=== PATIENT | male | born 1935 | race Caucasian/White ===

== ENCOUNTER 2019-06-11 13:08 | Outpatient (CLI) | payer MEDICARE, OTHER, SELFPAY | END 2019-06-11 13:09 | disposition home or self-care (01) | LOC: LAB 13:16 | PROVIDERS: Family Provider Internal Medicine; PCP Internal Medicine; Visit Provider Internal Medicine | DX: I26.99 Other pulmonary embolism without acute cor pulmonale (principal) | CPT/HCPCS: 36415; 85610 ==

== ENCOUNTER 2019-06-15 09:09 | Inpatient (IN) | payer MEDICARE, OTHER, SELFPAY ==
[2019-06-15] VITALS (14 sets, daily range): BP systolic 94–155; BP diastolic 46–89; PULSE 67–118; RESP 12–21; TEMP 36.3–37.1; O2SAT 93–100; BMI 35.6
--- NOTE | 2019-06-15 09:09 | ED_ITS ---
Entered by Uzair Wallis, acting as scribe for David Goff DO HPI - Extremity Problem General: Chief complaint: Extremity Injury, Lower Stated complaint: Left hip pain/fall 2 months ago Time Seen by Provider: 06/15/19 09:09 History of Present Illness: HPI Narrative: 83 yo male presents with lower extremity pain x2 months. MD Complaint: extremity pain Onset (ago): month(s) (2) Pain Consistency: constant Associated symptoms: Deny chest pain, fever(s) or rash Review of Systems Const: Denies: fever, chills, body aches, fatigue, malaise or night sweats Eyes: Denies: change in vision or blurry vision ENMT: Denies: throat pain, oral sores/lesions, dental pain, nasal discharge or nasal congestion Card: Denies: chest pain, palpitations, irregular heart rhythm, edema, syncope, shortness of breath on exertion, shortness of breath when lying down or leg pain with exertion Resp: Denies: shortness of breath, productive cough, non-productive cough or wheezing GI: Denies: abdominal pain, nausea, vomiting, vomiting blood, coffee grounds in vomit, difficulty swallowing, heartburn/indigestion, diarrhea, constipation, cramping, blood in stool or black tarry stool : Denies: flank pain, difficulty urinating, painful urination, urinary frequency, urinary urgency, urinary incontinence or blood in urine Musc: Reports: extremity pain; Denies: neck pain, back pain, extremity swelling, joint pain or joint swelling Skin/Breast: Denies: rash, itching or redness Neuro: Denies: headache, numbness in extremities, weakness in extremities, changes in sensation, lack of coordination, difficulty walking, frequent falls, dizziness, vertigo or confusion Psych: Denies: anxiety, depression, loss of interest, visual hallucinations, auditory hallucinations, suicidal ideation or homicidal ideation Endo: Denies: excessive urination, excessive thirst, tired all the time or cold intolerance Brody/Lymph: Denies: easy bruising, easy bleeding, petechiae, enlarged lymph nodes or tender lymph nodes PFSH ED PFSH: Statuses (acute, chronic, etc) shown below reflect problem list status as previously entered and may not be historically accurate Social History Smoking and tobacco status: former smoker Course Vital Signs: Vital signs: Vital Signs Temperature 97.3 F L 06/15/19 08:58 Pulse Rate 94 06/15/19 08:58 Respiratory Rate 17 06/15/19 08:58 Blood Pressure 112/84 06/15/19 08:58 Pulse Oximetry 98 06/15/19 08:58 Discharge Plan Discharge Condition: Good Prescriptions: No Action fentanyl 50 mcg/hr patch 72 hour 1 patch TRANSDERMA Q72H 30 Days Qty: 10 RF: 0 hydrocodone-acetaminophen 10-325 mg tablet 1 - 2 tab PO Q6H PRN (Reason: pain) 30 Days Qty: 90 RF: 0 ferrous gluconate 324 mg (37.5 mg iron) tablet 324 mg PO QDAY Qty: 30 RF: 6 Coding Level of Care Code ED Pack Room Operator for Mary Jane Martino
--- NOTE | 2019-06-15 09:17 | ED_ITS ---
Documented by User: MARK Whittington 06/18/19 16:58 HPI - Extremity Problem General: Chief complaint: Extremity Injury, Lower Stated complaint: Left hip pain/fall 2 months ago Time Seen by Provider: 06/15/19 09:09 History of Present Illness: HPI Narrative: Patient is an 83-year-old male who presents to ED today along with his for complaints of pain around his left hip area and into his left lower extremity; patient states he has had trouble ambulating over the past few months stating that his leg often kumar causing him to fall; he states he has had 2 falls over the past 2 months; he has been evaluated following the falls; he has followed up with his primary care physician Dr. Jimenez; he does not complain of numbness, tingling, loss of sensation to his left lower extremity; he has not noticed any swelling or colo r/temperature changes MD Complaint: extremity pain Onset (ago): month(s) Pain Consistency: constant Location: left Relieving factors: nothing Exacerbating factors: range of motion, weight bearing and walking Associated symptoms: Deny chest pain or fever(s) Review of Systems Const: Denies: fever, chills, body aches, fatigue or malaise Eyes: Denies: change in vision or blurry vision Card: Denies: chest pain, palpitations, irregular heart rhythm, edema, lightheadedness, syncope or pre-syncope Resp: Denies: shortness of breath or chest congestion GI: Denies: abdominal pain, nausea or vomiting : Denies: flank pain, difficulty urinating, painful urination, urinary frequency or urinary urgency Musc: Reports: neck pain (chronic), back pain (chronic), extremity pain (L LE) and joint pain; Denies: extremity swelling, joint swelling, redness, joint warmth or joint stiffness Skin/Breast: Reports: other (bruising to L thigh/buttock) Neuro: Reports: difficulty walking and frequent falls; Denies: numbness in extremities, weakness in extremities or changes in sensation PFSH ED PFSH: Statuses (acute, chronic, etc) shown below reflect problem list status as previously entered and may not be historically accurate Medical History (Updated 06/15/19 @ 19:48 by Scout Dubon MD) Arthritis (Acute) Depression (Acute) DVT (deep venous thrombosis) (Acute) Fluid retention in legs (Acute) Hypertension (Acute) Hypogonadism (Acute) Quadriceps tendon rupture (Acute) Urinary tract infection (Acute) Warfarin-induced coagulopathy (Acute) Surgical History (Updated 06/15/19 @ 19:48 by Scout Dubon MD) History of arthroplasty of right knee (Acute) Family History (Updated 06/15/19 @ 19:49 by Scout Dubon MD) Father Cancer Lung cancer Social History (Updated 06/15/19 @ 19:50 by Scout Dubon MD) Smoking and tobacco status: former smoker Alcohol intake: current Alcohol intake frequency: few times a month Substance/Drug Use: never Physical Exam Const: COMMON NORMALS: no apparent distress, oriented x3, no limitations and alert NUTRITIONAL APPEARANCE: obese ORIENTATION/CONSCIOUSNESS: Yes oriented to person, Yes oriented to place and Yes oriented to time HENMT: COMMON NORMALS: normocephalic and head/scalp atraumatic HEAD & SCALP: normocephalic and atraumatic Eye: COMMON NORMALS: PERRL and EOMs intact bilaterally PUPIL: Yes PERRL Resp: COMMON NORMALS: normal respiratory effort and clear to auscultation bilaterally AUSCULTATION: clear to auscultation bilaterally Cardio: COMMON NORMALS: regular rate and regular rhythm RATE: regular rate RHYTHM: regular rhythm GI: COMMON NORMALS: soft to palpation and non-tender PALPATION: Yes soft RECTAL EXAM: Yes visual inspection normal and No heme positive stool OTHER: has two small areas of ecchymosis on his abdomen; 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; does not complain of pain Back/Pelvis: OTHER: chronic neck and back pain-at baseline per pt Extremity: OTHER: pt complains of pain about his L hip; states there is a hard lump on his L buttock (this is a hematoma/ecchymosis); he cannot raise and hold his L leg up off the table stating this is painful; pt does have some very minor swelling to L LE when compared to R; DP/PT pulses are intact; no redness/warmth; has some venous stasis changes to R LE; reports R knee being bad from previous tendon repair Neuro: STEVE COMA SCALE: document GCS findings Steve coma scale eye opening: Spontaneous Steve coma scale verbal response: Orientated [place] coma scale motor response: Obey commands Steve coma scale total score: 15 COMMON NORMALS: oriented x3, CN's II-XII intact bilaterally, moves all extremities, no focal motor deficits and no sensory deficits noted SENSORIUM/ORIENTATION: Yes alert, Yes oriented to person, Yes oriented to place and Yes oriented to time SPEECH: speech normal Skin: GENERAL SKIN EXAM: ecchymosis (large area of ecchymosis/hematoma to L lateral thigh/buttock) Course ED course: After going in and speaking to patient about his ultrasound results and x-ray results patient now tells me that his main complaint is that over the past 3 days he has felt dizzy and weak; states he has been ambulatory with his walker but states over the past 3 days he has barely been able to do this and has had to use a bedside commode because of the weakness; he states dizziness is intermittent and does not seem to be positionally related; he denies chest pain, shortness of breath, difficulty breathing; he denies headache, visual changes, numbness/tingling/changes in sensation of his extremities; has not noticed any altered mental, slurred speech, or facial drooping. Vital Signs: Vital signs: Vital Signs Temperature 98.1 F 06/18/19 15:34 Pulse Rate 78 06/18/19 15:34 Respiratory Rate 18 06/18/19 15:34 Blood Pressure 118/70 06/18/19 15:34 Pulse Oximetry 95 06/18/19 15:34 MDM - Extremity (Nontraumatic) Lab Data: Labs: Lab Results 06/15/19 06/15/19 06/15/19 Range/Units 11:05 11:23 11:23 WBC 11.4 H (4.0-10.0) 10^3/ uL RBC 2.15 L (4.1-5.3) 10^6/u L Hgb 6.5 L* (11.7-16.6) g/dL Hct 21.5 L (42.0-52.0) % MCV 100.0 H (80-94) fL MCH 30.2 (28.0-34.0) pg MCHC 30.2 (30.0-36.0) g/dL RDW 14.4 (12.1-15.1) % Plt Count 329 (130-400) 10^3/c mm MPV 10.1 (7.4-10.4) fL Neut % (Auto) 84.4 % Lymph % (Auto) 7.0 % Cory[place] % (Auto) 7.8 % Eos % (Auto) 0.1 % Baso % (Auto) 0.3 % Neut # (Auto) 9.6 H (1.8-7.7) 10^3/u L Lymph # (Auto) 0.8 (0.8-4.8) 10^3/u L [place] # (Auto) 0.9 (0.2-0.9) 10^3/u L Eos # (Auto) 0.0 (0.0-0.8) 10^3/u L Baso # (Auto) 0.0 (0.0-0.1) 10^3/u L Nucleated RBC % (a uto) 0 % Nucleated RBCs # 0.0 /100WBC PT 41.50 H (10.5-13.3) SECO NDS INR 4.11 H (0.8-1.2) APTT 81.7 H (23.9-36.7) SECO NDS Sodium (136-145) mmol/L Potassium (3.5-5.1) mmol/L Chloride (98-107) mmol/L Carbon Dioxide (22-29) mmol/L Anion Gap (5-19) BUN (8-23) mg/dL Creatinine (0.7-1.2) mg/dL Glucose (74-106) mg/dL POC Glucose (70-110) mg/dL Calcium (8.5-10.5) mg/dL Magnesium (1.7-2.3) mg/dL Iron (59-158) ug/dL TIBC mcg/dl % Saturation (20-50) % Unsat Iron Binding (112-347) ug/dL Ferritin (30-400) ng/mL Total Bilirubin (0.15-1.2) mg/dL AST (0-40) U/L ALT (0-41) U/L Alkaline Phosphata se (40-130) IU/L Troponin I 6 Hour (0-15) ng/L Troponin I Hi Sens Del (0-12) ng/L Troponin T Baselin e (0-15) ng/mL Troponin T 120 Min nightmute (0-15) ng/mL Delta Troponin T (0-10) ABS# Total Protein (6.6-8.7) g/dL Albumin (3.5-5.2) g/dL Globulin (1.3-4.6) g/dL Vitamin B12 (232-1245) pg/mL Folate (4.5-32.2) ng/mL Urine Color Yellow (Yellow) Urine Appearance Cloudy (CLEAR) Urine pH 5.0 (5-7) Ur Specific Gravit y 1.010 (1.005-1.030) Urine Protein 1+ H (Negative) Urine Glucose (UA) Norm (Normal) Urine Ketones Negative (Negative) Urine Occult Blood 3+ H (Negative) Urine Nitrate Negative (Negative) Urine Bilirubin 1+ H (NEGATIVE) Urine Urobilinogen 4 H (Negative) mg/dL Ur Leukocyte Jo ase 2+ H (Negative) Urine RBC 15-25 H (0-2) /hpf Urine WBC 80-100 H (0-5) /hpf Ur Squamous Epith Cells 5-10 H (0-5) Urine Bacteria 2+ H (NONE) Urine Mucus Trace Blood Type Antibody Screen Crossmatch 06/15/19 06/15/19 06/15/19 Range/Units 11:23 11:23 12:27 WBC (4.0-10.0) 10^3/ uL RBC (4.1-5.3) 10^6/u L Hgb (11.7-16.6) g/dL Hct (42.0-52.0) % MCV (80-94) fL MCH (28.0-34.0) pg MCHC (30.0-36.0) g/dL RDW (12.1-15.1) % Plt Count (130-400) 10^3/c mm MPV (7.4-10.4) fL Neut % (Auto) % Lymph % (Auto) % Coryell % (Auto) % Eos % (Auto) % Baso % (Auto) % Neut # (Auto) (1.8-7.7) 10^3/u L Lymph # (Auto) (0.8-4.8) 10^3/u L [place] # (Auto) (0.2-0.9) 10^3/u L Eos # (Auto) (0.0-0.8) 10^3/u L Baso # (Auto) (0.0-0.1) 10^3/u L Nucleated RBC % (a uto) % Nucleated RBCs # /100WBC PT (10.5-13.3) SECO NDS INR (0.8-1.2) APTT (23.9-36.7) SECO NDS Sodium 133 L (136-145) mmol/L Potassium 4.1 (3.5-5.1) mmol/L Chloride 99 (98-107) mmol/L Carbon Dioxide 24 (22-29) mmol/L Anion Gap 14.1 (5-19) BUN 32 H (8-23) mg/dL Creatinine 1.0 (0.7-1.2) mg/dL Glucose 138 H (74-106) mg/dL POC Glucose (70-110) mg/dL Calcium 8.8 (8.5-10.5) mg/dL Magnesium 1.9 (1.7-2.3) mg/dL Iron (59-158) ug/dL TIBC mcg/dl % Saturation (20-50) % Unsat Iron Binding (112-347) ug/dL Ferritin (30-400) ng/mL Total Bilirubin 1.2 (0.15-1.2) mg/dL AST 46 H (0-40) U/L ALT 24 (0-41) U/L Alkaline Phosphata se 57 (40-130) IU/L Troponin I 6 Hour (0-15) ng/L Troponin I Hi Sens Del (0-12) ng/L Troponin T Baselin e 50 H (0-15) ng/mL Troponin T 120 Min nightmute (0-15) ng/mL Delta Troponin T (0-10) ABS# Total Protein 6.0 L (6.6-8.7) g/dL Albumin 3.0 L (3.5-5.2) g/dL Globulin 3.0 (1.3-4.6) g/dL Vitamin B12 (232-1245) pg/mL Folate (4.5-32.2) ng/mL Urine Color (Yellow) Urine Appearance (CLEAR) Urine pH (5-7) Ur Specific Gravit y (1.005-1.030) Urine Protein (Negative) Urine Glucose (UA) (Normal) Urine Ketones (Negative) Urine Occult Blood (Negative) Urine Nitrate (Negative) Urine Bilirubin (NEGATIVE) Urine Urobilinogen (Negative) mg/dL Ur Leukocyte Jo ase (Negative) Urine RBC (0-2) /hpf Urine WBC (0-5) /hpf Ur Squamous Epith Cells (0-5) Urine Bacteria (NONE) Urine Mucus Blood Type B Positive Antibody Screen Negative Crossmatch See Detail 06/15/19 06/15/19 06/15/19 Range/Units 13:54 13:54 13:56 WBC (4.0-10.0) 10^3/ uL RBC (4.1-5.3) 10^6/u L Hgb (11.7-16.6) g/dL Hct (42.0-52.0) % MCV (80-94) fL MCH (28.0-34.0) pg MCHC (30.0-36.0) g/dL RDW (12.1-15.1) % Plt Count (130-400) 10^3/c mm MPV (7.4-10.4) fL Neut % (Auto) % Lymph % (Auto) % [place] % (Auto) % Eos % (Auto) % Baso % (Auto) % Neut # (Auto) (1.8-7.7) 10^3/u L Lymph # (Auto) (0.8-4.8) 10^3/u L [place] # (Auto) (0.2-0.9) 10^3/u L Eos # (Auto) (0.0-0.8) 10^3/u L Baso # (Auto) (0.0-0.1) 10^3/u L Nucleated RBC % (a uto) % Nucleated RBCs # /100WBC PT (10.5-13.3) SECO NDS INR (0.8-1.2) APTT (23.9-36.7) SECO NDS Sodium (136-145) mmol/L Potassium (3.5-5.1) mmol/L Chloride (98-107) mmol/L Carbon Dioxide (22-29) mmol/L Anion Gap (5-19) BUN (8-23) mg/dL Creatinine (0.7-1.2) mg/dL Glucose (74-106) mg/dL POC Glucose (70-110) mg/dL Calcium (8.5-10.5) mg/dL Magnesium (1.7-2.3) mg/dL Iron 21 L 20 L (59-158) ug/dL TIBC 145 mcg/dl % Saturation 14.4 L (20-50) % Unsat Iron Binding 124 (112-347) ug/dL Ferritin 1140 H (30-400) ng/mL Total Bilirubin (0.15-1.2) mg/dL AST (0-40) U/L ALT (0-41) U/L Alkaline Phosphata se (40-130) IU/L Troponin I 6 Hour (0-15) ng/L Troponin I Hi Sens Del (0-12) ng/L Troponin T Baselin e (0-15) ng/mL Troponin T 120 Min nightmute 48.02 H (0-15) ng/mL Delta Troponin T -1.98 L (0-10) ABS# Total Protein (6.6-8.7) g/dL Albumin (3.5-5.2) g/dL Globulin (1.3-4.6) g/dL Vitamin B12 227 L (232-1245) pg/mL Folate (4.5-32.2) ng/mL Urine Color (Yellow) Urine Appearance (CLEAR) Urine pH (5-7) Ur Specific Gravit y (1.005-1.030) Urine Protein (Negative) Urine Glucose (UA) (Normal) Urine Ketones (Negative) Urine Occult Blood (Negative) Urine Nitrate (Negative) Urine Bilirubin (NEGATIVE) Urine Urobilinogen (Negative) mg/dL Ur Leukocyte Jo ase (Negative) Urine RBC (0-2) /hpf Urine WBC (0-5) /hpf Ur Squamous Epith Cells (0-5) Urine Bacteria (NONE) Urine Mucus Blood Type Antibody Screen Crossmatch 06/15/19 06/15/19 06/16/19 Range/Units 16:27 17:52 06:05 WBC (4.0-10.0) 10^3/ uL RBC (4.1-5.3) 10^6/u L Hgb (11.7-16.6) g/dL Hct (42.0-52.0) % MCV (80-94) fL MCH (28.0-34.0) pg MCHC (30.0-36.0) g/dL RDW (12.1-15.1) % Plt Count (130-400) 10^3/c mm MPV (7.4-10.4) fL Neut % (Auto) % Lymph % (Auto) % [place] % (Auto) % Eos % (Auto) % Baso % (Auto) % Neut # (Auto) (1.8-7.7) 10^3/u L Lymph # (Auto) (0.8-4.8) 10^3/u L [place] # (Auto) (0.2-0.9) 10^3/u L Eos # (Auto) (0.0-0.8) 10^3/u L Baso # (Auto) (0.0-0.1) 10^3/u L Nucleated RBC % (a uto) % Nucleated RBCs # /100WBC PT (10.5-13.3) SECO NDS INR (0.8-1.2) APTT (23.9-36.7) SECO NDS Sodium (136-145) mmol/L Potassium (3.5-5.1) mmol/L Chloride (98-107) mmol/L Carbon Dioxide (22-29) mmol/L Anion Gap (5-19) BUN (8-23) mg/dL Creatinine (0.7-1.2) mg/dL Glucose (74-106) mg/dL POC Glucose 137 (70-110) mg/dL Calcium (8.5-10.5) mg/dL Magnesium (1.7-2.3) mg/dL Iron (59-158) ug/dL TIBC mcg/dl % Saturation (20-50) % Unsat Iron Binding (112-347) ug/dL Ferritin (30-400) ng/mL Total Bilirubin (0.15-1.2) mg/dL AST (0-40) U/L ALT (0-41) U/L Alkaline Phosphata se (40-130) IU/L Troponin I 6 Hour 49.28 H (0-15) ng/L Troponin I Hi Sens Del -0.72 L (0-12) ng/L Troponin T Baselin e (0-15) ng/mL Troponin T 120 Min nightm[place] (0-15) ng/mL Delta Troponin T (0-10) ABS# Total Protein (6.6-8.7) g/dL Albumin (3.5-5.2) g/dL Globulin (1.3-4.6) g/dL Vitamin B12 (232-1245) pg/mL Folate 9.1 (4.5-32.2) ng/mL Urine Color (Yellow) Urine Appearance (CLEAR) Urine pH (5-7) Ur Specific Gravit y (1.005-1.030) Urine Protein (Negative) Urine Glucose (UA) (Normal) Urine Ketones (Negative) Urine Occult Blood (Negative) Urine Nitrate (Negative) Urine Bilirubin (NEGATIVE) Urine Urobilinogen (Negative) mg/dL Ur Leukocyte Jo ase (Negative) Urine RBC (0-2) /hpf Urine WBC (0-5) /hpf Ur Squamous Epith Cells (0-5) Urine Bacteria (NONE) Urine Mucus Blood Type Antibody Screen Crossmatch 06/16/19 06/16/19 Range/Units 08:11 08:11 WBC 10.5 H (4.0-10.0) 10^3/ uL RBC 2.37 L (4.1-5.3) 10^6/u L Hgb 7.4 L (11.7-16.6) g/dL Hct 23.7 L (42.0-52.0) % MCV 100.0 H (80-94) fL MCH 31.2 (28.0-34.0) pg MCHC 31.2 (30.0-36.0) g/dL RDW 16.0 H (12.1-15.1) % Plt Count 411 H (130-400) 10^3/c mm MPV 10.2 (7.4-10.4) fL Neut % (Auto) 80.8 % Lymph % (Auto) 7.2 % [place] % (Auto) 10.3 % Eos % (Auto) 0.9 % Baso % (Auto) 0.4 % Neut # (Auto) 8.5 H (1.8-7.7) 10^3/u L Lymph # (Auto) 0.8 (0.8-4.8) 10^3/u L [place] # (Auto) 1.1 H (0.2-0.9) 10^3/u L Eos # (Auto) 0.1 (0.0-0.8) 10^3/u L Baso # (Auto) 0.0 (0.0-0.1) 10^3/u L Nucleated RBC % (a uto) 0 % Nucleated RBCs # 0.0 /100WBC PT (10.5-13.3) SECO NDS INR (0.8-1.2) APTT (23.9-36.7) SECO NDS Sodium 135 L (136-145) mmol/L Potassium 4.2 (3.5-5.1) mmol/L Chloride 100 (98-107) mmol/L Carbon Dioxide 26 (22-29) mmol/L Anion Gap 13.2 (5-19) BUN 26 H (8-23) mg/dL Creatinine 0.8 (0.7-1.2) mg/dL Glucose 132 H (74-106) mg/dL POC Glucose (70-110) mg/dL Calcium 8.6 (8.5-10.5) mg/dL Magnesium (1.7-2.3) mg/dL Iron (59-158) ug/dL TIBC mcg/dl % Saturation (20-50) % Unsat Iron Binding (112-347) ug/dL Ferritin (30-400) ng/mL Total Bilirubin 1.1 (0.15-1.2) mg/dL AST 51 H (0-40) U/L ALT 27 (0-41) U/L Alkaline Phosphata se 57 (40-130) IU/L Troponin I 6 Hour (0-15) ng/L Troponin I Hi Sens Del (0-12) ng/L Troponin T Baselin e (0-15) ng/mL Troponin T 120 Min nightm[place] (0-15) ng/mL Delta Troponin T (0-10) ABS# Total Protein 6.2 L (6.6-8.7) g/dL Albumin 3.1 L (3.5-5.2) g/dL Globulin 3.1 (1.3-4.6) g/dL Vitamin B12 (232-1245) pg/mL Folate (4.5-32.2) ng/mL Urine Color (Yellow) Urine Appearance (CLEAR) Urine pH (5-7) Ur Specific Gravit y (1.005-1.030) Urine Protein (Negative) Urine Glucose (UA) (Normal) Urine Ketones (Negative) Urine Occult Blood (Negative) Urine Nitrate (Negative) Urine Bilirubin (NEGATIVE) Urine Urobilinogen (Negative) mg/dL Ur Leukocyte Jo ase (Negative) Urine RBC (0-2) /hpf Urine WBC (0-5) /hpf Ur Squamous Epith Cells (0-5) Urine Bacteria (NONE) Urine Mucus Blood Type Antibody Screen Crossmatch Imaging Data^: L hip XR: Radiologist's impression: [address] [address] XRay Report Signed Patient: Wing Vega Unit #: [id number] : 1935 Acct#:[id number] Age/Sex: 83 / M ADM Date: 06/15/19 Loc: ER Room/Bed: Attending Dr: Ordering Provider/Ordering MD: Kenzie Govea Date of Service: 06/15/19 Procedure(s): XR hip LT 2-3V wo/w pel* [id number] Accession Number(s): [id number] Report Number: [id number] PROCEDURE INFORMATION: Exam: XR Left Hip with Pelvis when Performed Exam date and time: 06/15/2019 9:40 AM Age: 83 years old Clinical indication: Patient HX: Left hip pain, can't bear weight, no known injury; Additional info: Fall/pain TECHNIQUE: Imaging protocol: XR Left hip with pelvis when performed. Views: 2 or 3 views. COMPARISON: CT Abdomen/Pelvis Renal [id number] 07/22/2015 8:18 AM FINDINGS: Bones/joints: osseous structures of the pelvis without an acute process. rami are intact. Sacroiliac joints without separation/diastases/fracture. Iliac bones unremarkable/noncontributory Moderate degenerative changes within the hips Degenerative changes within the visualized portions of the caudal aspect of the lumbar spine. Moderate. Soft tissues: Unremarkable. XR/XR hip LT 2-3V wo/w pel* [id number] IMPRESSION: No acute process. Degenerative changes within the hips and lumbar spine. Dictated By: Cristobal Malagon MD Signed By: Cristobal Malagon MD Signed Date/Time: 06/15/19 1108 DD/ 1106 L buttock soft tissue: Radiologist's impression: [address] [place] [address] Ultrasound Report Signed Patient: Wing Vega Unit #: [id number] : 1935 Age/Sex: 83 / M ADM Date: 06/15/19 Loc: ER Room/Bed: Attending Dr: Ordering Provider/Ordering MD: Kenzie Govea Date of Service: 06/15/19 Procedure(s): US soft tissue/extremity [id number] Accession Number(s): [id number] Report Number: [id number] WS: [id number] INDICATION: Left buttock bruising TECHNIQUE: Ultrasound soft tissue FINDINGS: Ultrasound soft tissue left buttocks area of concern. Superficial edema. Hypoechoic mixed echogenicity collection measuring 5.5 x 2.2 x 2.8 cm. This is 2.4 cm from the skin. Findings are nonspecific but suspected resolving hematoma due to recent trauma and bruising. IMPRESSION: Suspected resolving hematoma in the area of concern measuring 5.5 x 2.8 cm. This can be followed up with ultrasound 2-3 weeks Dictated By: Hua Zaldivar MD Signed By: Hua Zaldivar MD Signed Date/Time: 06/15/19 1040 DD/ 1035 L LE venous US: Radiologist's impression: Examination was technically limited due to body habitus. No evidence of DVT seen in any vessel where visualized at this time. Calf edema noted. Mid calf veins not well seen. CXR: Radiologist's impression: [address] [place] [address] XRay Report Signed Patient: Wing Vega Unit #: [id number] : 1935 Age/Sex: 83 / M ADM Date: 06/15/19 Loc: ER Room/Bed: Attending Dr: Ordering Provider/Ordering MD: Kenzie Govea Date of Service: 06/15/19 Procedure(s): XR chest 1V portable [id number] Accession Number(s): [id number] Report Number: [id number] PROCEDURE INFORMATION: Exam: XR Chest, 1 View Exam date and time: 06/15/2019 11:38 AM Age: 83 years old Clinical indication: Cough; Additional info: Cough/congestion TECHNIQUE: Imaging protocol: XR of the chest Views: 1 view. COMPARISON: CR Chest 1 [place] [id number] 04/22/2019 1:16 PM FINDINGS: Lungs: Lungs are well aerated without a focal area of consolidation. Pleural space: Unremarkable. No pleural effusion. No pneumothorax. Heart/Mediastinum: The cardiac silhouette appears enlarged, some of which is magnification related to the AP projection. Bones/joints: Unremarkable. XR/XR chest 1V portable [id number] IMPRESSION: Lungs are well aerated without a focal area of consolidation. Dictated By: Cristobal Malagon MD Signed By: Cristobal Malagon MD Signed Date/Time: 06/15/191156 DD/ 115 CT Head: Radiologist's impression: [place] [address] CT Scan Report Signed Patient: Wing Vega Unit #: [id number] : 1935 Age/Sex: 83 / M ADM Date: 06/15/19 Loc: ER Room/Bed: Attending Dr: Ordering Provider/Ordering MD: Kenzie Govea Date of Service: 06/15/19 Procedure(s): CT head wo con* [id number] Accession Number(s): [id number] Report Number: [id number] WS: [id number] CT HEAD TECHNIQUE: Noncontrast CT of the head obtained from the skullbase to the vertex. CLINICAL INFORMATION: trauma COMPARISON: None. DLP: 796.[address] scans at [facility] use at least one of these dose optimization techniques: automated exposure control; mA and/or kV adjustment per patient size (includes targeted exams where dose is matched to clinical indication); or iterative reconstruction. FINDINGS: No evidence of intracranial hemorrhage or mass effect. Ventricular system and basal cisterns are patent. Mild small vessel changes with mild4 parenchymal volume loss. No extra- axial fluid collections. No evidence of mass or mass effect. Normal romero-white differentiation. Paranasal sinuses and mastoid air cells are well aerated. .Normal visualized soft tissues. CT/CT head wo con* [id number] IMPRESSION: 1. No evidence of intracranial hemorrhage or mass effect. 2. Mild small vessel changes. Mild parenchymal loss. 3. No acute intracranial findings. Dictated By: Hua Zaldivar MD Signed By: Hua Zaldivar MD Signed Date/Time: 06/15/19 1248 DD/ 1245 Discharge Plan Discharge Patient Disposition: Admitted As Inpatient Admit Provider: Scout Dubon Clinical Impression: Supratherapeutic INR, Acute anemia Condition: Stable Referrals: Blas Jimenez MD [Primary Care Provider] - Discharge Date/Time: 06/15/19 17:10 Coding Level of Care Code ED Jointer Machine for Chg Fwd Exam Problem Focused Documented by User: Sofia Lara MD 06/15/19 15:02 HPI - Extremity Problem General: Chief complaint: Extremity Injury, Lower Stated complaint: Left hip pain/fall 2 months ago Time Seen by Provider: 06/15/19 09:09 [facility] ED PFSH: Statuses (acute, chronic, etc) shown below reflect problem list status as previously entered and may not be historically accurate Medical History (Updated 06/15/19 @ 19:48 by Scout Dubon MD) Arthritis (Acute) Depression (Acute) DVT (deep venous thrombosis) (Acute) Fluid retention in legs (Acute) Hypertension (Acute) Hypogonadism (Acute) Quadriceps tendon rupture (Acute) Urinary tract infection (Acute) Warfarin-induced coagulopathy (Acute) Surgical History (Updated 06/15/19 @ 19:48 by Scout Dubon MD) History of arthroplasty of right knee (Acute) Family History (Updated 06/15/19 @ 19:49 by Scout Dubon MD) Father Cancer Lung cancer Social History (Updated 06/15/19 @ 19:50 by Scout Dubon MD) Smoking and tobacco status: former smoker Alcohol intake: current Alcohol intake frequency: few times a month Substance/Drug Use: never Course Vital Signs: Vital signs: Vital Signs Temperature 98.1 F 06/18/19 15:34 Pulse Rate 78 06/18/19 15:34 Respiratory Rate 18 06/18/19 15:34 Blood Pressure 118/70 06/18/19 15:34 Pulse Oximetry 95 06/18/19 15:34 MDM - Extremity (Nontraumatic) MDM Narrative: Medical decision making narrative: Patient presents here with hematoma to his leg likely causing his anemia. His knee is likely causing his dizziness. His INR is slightly elevated. Will transfuse and monitor INR as well. I spoke to Dr. Dubon who is admitting for observation. Patient has been stable while in the ER. Lab Data: Labs: Lab Results 06/15/19 06/15/19 06/15/19 Range/Units 11:05 11:23 11:23 WBC 11.4 H (4.0-10.0) 10^3/ uL RBC 2.15 L (4.1-5.3) 10^6/u L Hgb 6.5 L* (11.7-16.6) g/dL Hct 21.5 L (42.0-52.0) % MCV 100.0 H (80-94) fL MCH 30.2 (28.0-34.0) pg MCHC 30.2 (30.0-36.0) g/dL RDW 14.4 (12.1-15.1) % Plt Count 329 (130-400) 10^3/c mm MPV 10.1 (7.4-10.4) fL Neut % (Auto) 84.4 % Lymph % (Auto) 7.0 % [place] % (Auto) 7.8 % Eos % (Auto) 0.1 % Baso % (Auto) 0.3 % Neut # (Auto) 9.6 H (1.8-7.7) 10^3/u L Lymph # (Auto) 0.8 (0.8-4.8) 10^3/u L [place] # (Auto) 0.9 (0.2-0.9) 10^3/u L Eos # (Auto) 0.0 (0.0-0.8) 10^3/u L Baso # (Auto) 0.0 (0.0-0.1) 10^3/u L Nucleated RBC % (a uto) 0 % Nucleated RBCs # 0.0 /100WBC PT 41.50 H (10.5-13.3) SECO NDS INR 4.11 H (0.8-1.2) APTT 81.7 H (23.9-36.7) SECO NDS Sodium (136-145) mmol/L Potassium (3.5-5.1) mmol/L Chloride (98-107) mmol/L Carbon Dioxide (22-29) mmol/L Anion Gap (5-19) BUN (8-23) mg/dL Creatinine (0.7-1.2) mg/dL Glucose (74-106) mg/dL POC Glucose (70-110) mg/dL Calcium (8.5-10.5) mg/dL Magnesium (1.7-2.3) mg/dL Iron (59-158) ug/dL TIBC mcg/dl % Saturation (20-50) % Unsat Iron Binding (112-347) ug/dL Ferritin (30-400) ng/mL Total Bilirubin (0.15-1.2) mg/dL AST (0-40) U/L ALT (0-41) U/L Alkaline Phosphata se (40-130) IU/L Troponin I 6 Hour (0-15) ng/L Troponin I Hi Sens Del (0-12) ng/L Troponin T Baselin e (0-15) ng/mL Troponin T 120 Min nightmute (0-15) ng/mL Delta Troponin T (0-10) ABS# Total Protein (6.6-8.7) g/dL Albumin (3.5-5.2) g/dL Globulin (1.3-4.6) g/dL Vitamin B12 (232-1245) pg/mL Folate (4.5-32.2) ng/mL Urine Color Yellow (Yellow) Urine Appearance Cloudy (CLEAR) Urine pH 5.0 (5-7) Ur Specific Gravit y 1.010 (1.005-1.030) Urine Protein 1+ H (Negative) Urine Glucose (UA) Norm (Normal) Urine Ketones Negative (Negative) Urine Occult Blood 3+ H (Negative) Urine Nitrate Negative (Negative) Urine Bilirubin 1+ H (NEGATIVE) Urine Urobilinogen 4 H (Negative) mg/dL Ur Leukocyte Jo ase 2+ H (Negative) Urine RBC 15-25 H (0-2) /hpf Urine WBC 80-100 H (0-5) /hpf Ur Squamous Epith Cells 5-10 H (0-5) Urine Bacteria 2+ H (NONE) Urine Mucus Trace Blood Type Antibody Screen Crossmatch 06/15/19 06/15/19 06/15/19 Range/Units 11:23 11:23 12:27 WBC (4.0-10.0) 10^3/ uL RBC (4.1-5.3) 10^6/u L Hgb (11.7-16.6) g/dL Hct (42.0-52.0) % MCV (80-94) fL MCH (28.0-34.0) pg MCHC (30.0-36.0) g/dL RDW (12.1-15.1) % Plt Count (130-400) 10^3/c mm MPV (7.4-10.4) fL Neut % (Auto) % Lymph % (Auto) % Coryell % (Auto) % Eos % (Auto) % Baso % (Auto) % Neut # (Auto) (1.8-7.7) 10^3/u L Lymph # (Auto) (0.8-4.8) 10^3/u L Coryell # (Auto) (0.2-0.9) 10^3/u L Eos # (Auto) (0.0-0.8) 10^3/u L Baso # (Auto) (0.0-0.1) 10^3/u L Nucleated RBC % (a uto) % Nucleated RBCs # /100WBC PT (10.5-13.3) SECO NDS INR (0.8-1.2) APTT (23.9-36.7) SECO NDS Sodium 133 L (136-145) mmol/L Potassium 4.1 (3.5-5.1) mmol/L Chloride 99 (98-107) mmol/L Carbon Dioxide 24 (22-29) mmol/L Anion Gap 14.1 (5-19) BUN 32 H (8-23) mg/dL Creatinine 1.0 (0.7-1.2) mg/dL Glucose 138 H (74-106) mg/dL POC Glucose (70-110) mg/dL Calcium 8.8 (8.5-10.5) mg/dL Magnesium 1.9 (1.7-2.3) mg/dL Iron (59-158) ug/dL TIBC mcg/dl % Saturation (20-50) % Unsat Iron Binding (112-347) ug/dL Ferritin (30-400) ng/mL Total Bilirubin 1.2 (0.15-1.2) mg/dL AST 46 H (0-40) U/L ALT 24 (0-41) U/L Alkaline Phosphata se 57 (40-130) IU/L Troponin I 6 Hour (0-15) ng/L Troponin I Hi Sens Del (0-12) ng/L Troponin T Baselin e 50 H (0-15) ng/mL Troponin T 120 Min nightmute (0-15) ng/mL Delta Troponin T (0-10) ABS# Total Protein 6.0 L (6.6-8.7) g/dL Albumin 3.0 L (3.5-5.2) g/dL Globulin 3.0 (1.3-4.6) g/dL Vitamin B12 (232-1245) pg/mL Folate (4.5-32.2) ng/mL Urine Color (Yellow) Urine Appearance (CLEAR) Urine pH (5-7) Ur Specific Gravit y (1.005-1.030) Urine Protein (Negative) Urine Glucose (UA) (Normal) Urine Ketones (Negative) Urine Occult Blood (Negative) Urine Nitrate (Negative) Urine Bilirubin (NEGATIVE) Urine Urobilinogen (Negative) mg/dL Ur Leukocyte Jo ase (Negative) Urine RBC (0-2) /hpf Urine WBC (0-5) /hpf Ur Squamous Epith Cells (0-5) Urine Bacteria (NONE) Urine Mucus Blood Type B Positive Antibody Screen Negative Crossmatch See Detail 06/15/19 06/15/19 06/15/19 Range/Units 13:54 13:54 13:56 WBC (4.0-10.0) 10^3/ uL RBC (4.1-5.3) 10^6/u L Hgb (11.7-16.6) g/dL Hct (42.0-52.0) % MCV (80-94) fL MCH (28.0-34.0) pg MCHC (30.0-36.0) g/dL RDW (12.1-15.1) % Plt Count (130-400) 10^3/c mm MPV (7.4-10.4) fL Neut % (Auto) % Lymph % (Auto) % Coryell % (Auto) % Eos % (Auto) % Baso % (Auto) % Neut # (Auto) (1.8-7.7) 10^3/u L Lymph # (Auto) (0.8-4.8) 10^3/u L Coryell # (Auto) (0.2-0.9) 10^3/u L Eos # (Auto) (0.0-0.8) 10^3/u L Baso # (Auto) (0.0-0.1) 10^3/u L Nucleated RBC % (a uto) % Nucleated RBCs # /100WBC PT (10.5-13.3) SECO NDS INR (0.8-1.2) APTT (23.9-36.7) SECO NDS Sodium (136-145) mmol/L Potassium (3.5-5.1) mmol/L Chloride (98-107) mmol/L Carbon Dioxide (22-29) mmol/L Anion Gap (5-19) BUN (8-23) mg/dL Creatinine (0.7-1.2) mg/dL Glucose (74-106) mg/dL POC Glucose (70-110) mg/dL Calcium (8.5-10.5) mg/dL Magnesium (1.7-2.3) mg/dL Iron 21 L 20 L (59-158) ug/dL TIBC 145 mcg/dl % Saturation 14.4 L (20-50) % Unsat Iron Binding 124 (112-347) ug/dL Ferritin 1140 H (30-400) ng/mL Total Bilirubin (0.15-1.2) mg/dL AST (0-40) U/L ALT (0-41) U/L Alkaline Phosphata se (40-130) IU/L Troponin I 6 Hour (0-15) ng/L Troponin I Hi Sens Del (0-12) ng/L Troponin T Baselin e (0-15) ng/mL Troponin T 120 Min nightmute 48.02 H (0-15) ng/mL Delta Troponin T -1.98 L (0-10) ABS# Total Protein (6.6-8.7) g/dL Albumin (3.5-5.2) g/dL Globulin (1.3-4.6) g/dL Vitamin B12 227 L (232-1245) pg/mL Folate (4.5-32.2) ng/mL Urine Color (Yellow) Urine Appearance (CLEAR) Urine pH (5-7) Ur Specific Gravit y (1.005-1.030) Urine Protein (Negative) Urine Glucose (UA) (Normal) Urine Ketones (Negative) Urine Occult Blood (Negative) Urine Nitrate (Negative) Urine Bilirubin (NEGATIVE) Urine Urobilinogen (Negative) mg/dL Ur Leukocyte Jo ase (Negative) Urine RBC (0-2) /hpf Urine WBC (0-5) /hpf Ur Squamous Epith Cells (0-5) Urine Bacteria (NONE) Urine Mucus Blood Type Antibody Screen Crossmatch 06/15/19 06/15/19 06/16/19 Range/Units 16:27 17:52 06:05 WBC (4.0-10.0) 10^3/ uL RBC (4.1-5.3) 10^6/u L Hgb (11.7-16.6) g/dL Hct (42.0-52.0) % MCV (80-94) fL MCH (28.0-34.0) pg MCHC (30.0-36.0) g/dL RDW (12.1-15.1) % Plt Count (130-400) 10^3/c mm MPV (7.4-10.4) fL Neut % (Auto) % Lymph % (Auto) % Coryell % (Auto) % Eos % (Auto) % Baso % (Auto) % Neut # (Auto) (1.8-7.7) 10^3/u L Lymph # (Auto) (0.8-4.8) 10^3/u L Coryell # (Auto) (0.2-0.9) 10^3/u L Eos # (Auto) (0.0-0.8) 10^3/u L Baso # (Auto) (0.0-0.1) 10^3/u L Nucleated RBC % (a uto) % Nucleated RBCs # /100WBC PT (10.5-13.3) SECO NDS INR (0.8-1.2) APTT (23.9-36.7) SECO NDS Sodium (136-145) mmol/L Potassium (3.5-5.1) mmol/L Chloride (98-107) mmol/L Carbon Dioxide (22-29) mmol/L Anion Gap (5-19) BUN (8-23) mg/dL Creatinine (0.7-1.2) mg/dL Glucose (74-106) mg/dL POC Glucose 137 (70-110) mg/dL Calcium (8.5-10.5) mg/dL Magnesium (1.7-2.3) mg/dL Iron (59-158) ug/dL TIBC mcg/dl % Saturation (20-50) % Unsat Iron Binding (112-347) ug/dL Ferritin (30-400) ng/mL Total Bilirubin (0.15-1.2) mg/dL AST (0-40) U/L ALT (0-41) U/L Alkaline Phosphata se (40-130) IU/L Troponin I 6 Hour 49.28 H (0-15) ng/L Troponin I Hi Sens Del -0.72 L (0-12) ng/L Troponin T Baselin e (0-15) ng/mL Troponin T 120 Min nightmute (0-15) ng/mL Delta Troponin T (0-10) ABS# Total Protein (6.6-8.7) g/dL Albumin (3.5-5.2) g/dL Globulin (1.3-4.6) g/dL Vitamin B12 (232-1245) pg/mL Folate 9.1 (4.5-32.2) ng/mL Urine Color (Yellow) Urine Appearance (CLEAR) Urine pH (5-7) Ur Specific Gravit y (1.005-1.030) Urine Protein (Negative) Urine Glucose (UA) (Normal) Urine Ketones (Negative) Urine Occult Blood (Negative) Urine Nitrate (Negative) Urine Bilirubin (NEGATIVE) Urine Urobilinogen (Negative) mg/dL Ur Leukocyte Jo ase (Negative) Urine RBC (0-2) /hpf Urine WBC (0-5) /hpf Ur Squamous Epith Cells (0-5) Urine Bacteria (NONE) Urine Mucus Blood Type Antibody Screen Crossmatch 06/16/19 06/16/19 Range/Units 08:11 08:11 WBC 10.5 H (4.0-10.0) 10^3/ uL RBC 2.37 L (4.1-5.3) 10^6/u L Hgb 7.4 L (11.7-16.6) g/dL Hct 23.7 L (42.0-52.0) % MCV 100.0 H (80-94) fL MCH 31.2 (28.0-34.0) pg MCHC 31.2 (30.0-36.0) g/dL RDW 16.0 H (12.1-15.1) % Plt Count 411 H (130-400) 10^3/c mm MPV 10.2 (7.4-10.4) fL Neut % (Auto) 80.8 % Lymph % (Auto) 7.2 % Coryell % (Auto) 10.3 % Eos % (Auto) 0.9 % Baso % (Auto) 0.4 % Neut # (Auto) 8.5 H (1.8-7.7) 10^3/u L Lymph # (Auto) 0.8 (0.8-4.8) 10^3/u L Coryell # (Auto) 1.1 H (0.2-0.9) 10^3/u L Eos # (Auto) 0.1 (0.0-0.8) 10^3/u L Baso # (Auto) 0.0 (0.0-0.1) 10^3/u L Nucleated RBC % (a uto) 0 % Nucleated RBCs # 0.0 /100WBC PT (10.5-13.3) SECO NDS INR (0.8-1.2) APTT (23.9-36.7) SECO NDS Sodium 135 L (136-145) mmol/L Potassium 4.2 (3.5-5.1) mmol/L Chloride 100 (98-107) mmol/L Carbon Dioxide 26 (22-29) mmol/L Anion Gap 13.2 (5-19) BUN 26 H (8-23) mg/dL Creatinine 0.8 (0.7-1.2) mg/dL Glucose 132 H (74-106) mg/dL POC Glucose (70-110) mg/dL Calcium 8.6 (8.5-10.5) mg/dL Magnesium (1.7-2.3) mg/dL Iron (59-158) ug/dL TIBC mcg/dl % Saturation (20-50) % Unsat Iron Binding (112-347) ug/dL Ferritin (30-400) ng/mL Total Bilirubin 1.1 (0.15-1.2) mg/dL AST 51 H (0-40) U/L ALT 27 (0-41) U/L Alkaline Phosphata se 57 (40-130) IU/L Troponin I 6 Hour (0-15) ng/L Troponin I Hi Sens Del (0-12) ng/L Troponin T Baselin e (0-15) ng/mL Troponin T 120 Min nightmute (0-15) ng/mL Delta Troponin T (0-10) ABS# Total Protein 6.2 L (6.6-8.7) g/dL Albumin 3.1 L (3.5-5.2) g/dL Globulin 3.1 (1.3-4.6) g/dL Vitamin B12 (232-1245) pg/mL Folate (4.5-32.2) ng/mL Urine Color (Yellow) Urine Appearance (CLEAR) Urine pH (5-7) Ur Specific Gravit y (1.005-1.030) Urine Protein (Negative) Urine Glucose (UA) (Normal) Urine Ketones (Negative) Urine Occult Blood (Negative) Urine Nitrate (Negative) Urine Bilirubin (NEGATIVE) Urine Urobilinogen (Negative) mg/dL Ur Leukocyte Jo ase (Negative) Urine RBC (0-2) /hpf Urine WBC (0-5) /hpf Ur Squamous Epith Cells (0-5) Urine Bacteria (NONE) Urine Mucus Blood Type Antibody Screen Crossmatch Discharge Plan Discharge Patient Disposition: Admitted As Inpatient Admit Provider: Scout Dubon Clinical Impression: Supratherapeutic INR, Acute anemia Condition: Stable Referrals: Blas Jimenez MD [Primary Care Provider] - Discharge Date/Time: 06/15/19 17:10 Coding Level of Care Code ED Jointer Machine for Chg Fwd Exam Problem Focused
--- NOTE | 2019-06-15 09:17 | USCV_ITS ---
SilviaWing coello Age: 83 Gender: M : 1935 Exam Date: 06/15/2019 09:54 Ordering Phys: Kenzie Govea Technologist: Alessandra Rose [place] [facility] [place]: Pain, swelling limb HISTORY: Left lower extremity pain and swelling. PROCEDURES: Comparison: 09-08-18. Venous duplex imaging was performed in only the left lower extremity. The following venous structures were evaluated: common femoral vein, profunda vein, proximal portion of the greater saphenous vein, superficial femoral vein, and the popliteal vein. In addition, the posterior tibial and peroneal trunk were evaluated. Serial compression, augmentation maneuvers, and spectral Doppler flow evaluation were performed. FINDINGS: Examination was technically limited due to body habitus. No evidence of DVT seen in any vessel where visualized at this time. Calf edema noted. Mid calf veins not well seen. CONCLUSIONS No evidence of left lower extremity DVT. Calf edema Hua Zaldivar MD (Electronically Signed) Final Date: 15 June 2019 14:26 S
--- NOTE | 2019-06-15 09:33 | US_ITS ---
WS: [id number] INDICATION: Left buttock bruising TECHNIQUE: Ultrasound soft tissue FINDINGS: Ultrasound soft tissue left buttocks area of concern. Superficial edema. Hypoechoic mixed e chogenicity collection measuring 5.5 x 2.2 x 2.8 cm. This is 2.4 cm from the skin. Findings are nonsp ecific but suspected resolving hematoma due to recent trauma and bruising. IMPRESSION: Suspected resolving hematoma in the area of concern measuring 5.5 x 2.8 cm. This can be followed up with ultrasound 2-3 weeks
--- NOTE | 2019-06-15 09:54 | PC.NURSE ---
us in room at bedside, no complaints
--- NOTE | 2019-06-15 10:57 | ECG_ITS ---
Measurements Intervals [place] Rate: 89 P: 53 WI: 196 QRS: -50 QRSD: 146 T: -5 QT: 394 QTc: 482 SINUS RHYTHM WITH OCCASIONAL SUPRAVENTRICULAR PREMATURE COMPLEXES RIGHT BUNDLE BRANCH BLOCK [120+ ms QRS DURATION, UPRIGHT V1, 40+ ms S IN I I/aVL/V4/V5/V6] LEFT ANTERIOR FASCICULAR BLOCK [QRS AXIS <= -45, QR IN I, RS IN II] No previous ECG available for comparison Electronically Signed On 06-15-2019 21:07:18 CLIENT SPECIALIST by Rigo Deng M.D. [id number] rios
--- NOTE | 2019-06-15 10:57 | XRR_ITS ---
PROCEDURE INFORMATION: Exam: XR Chest, 1 View Exam date and time: 06/15/2019 11:38 AM Age: 83 years old Clinical indication: Cough; Additional info: Cough/congestion TECHNIQUE: Imaging protocol: XR of the chest Views: 1 view. COMPARISON: CR Chest 1 [place] [id number] 04/22/2019 1:16 PM FINDINGS: Lungs: Lungs are well aerated without a focal area of consolidation. Pleural space: Unremarkable. No pleural effusion. No pneumothorax. Heart/Mediastinum: The cardiac silhouette appears enlarged, some of which is magnification related to the AP projection. Bones/joints: Unremarkable. XR/XR chest 1V portable [id number] IMPRESSION: Lungs are well aerated without a focal area of consolidation.
--- NOTE | 2019-06-15 10:57 | CT_ITS ---
WS: [id number] CT HEAD TECHNIQUE: Noncontrast CT of the head obtained from the skullbase to the vertex. CLINICAL INFORMATION: trauma COMPARISON: None. DLP: 796.[address] scans at [facility] use at least one of these dose optimization techniques: automat ed exposure control; mA and/or kV adjustment per patient size (includes targeted exams where dose is matched to clinical indication); or iterative reconstruction. FINDINGS: No evidence of intracranial hemorrhage or mass effect. Ventricular system and basal cisterns are vigil nt. Mild small vessel changes with mild4 parenchymal volume loss. No extra-axial fluid collections. N o evidence of mass or mass effect. Normal romero-white differentiation. Paranasal sinuses and mastoid air cells are well aerated. .Normal visualized soft tissues. CT/CT head wo con* [id number] IMPRESSION: 1. No evidence of intracranial hemorrhage or mass effect. 2. Mild small vessel changes. Mild parenchymal loss. 3. No acute intracranial findings.
[2019-06-15 11:16] LABS: Bilirubin Urine 1+ (NEGATIVE); Blood Urine 3+ (Negative); Glucose Urine UA Norm (Normal); Ketones Urine Negative (Negative); Nitrate Urine Negative (Negative); Protein Urine 1+ (Negative); Urine Appearance Cloudy (CLEAR); Urine Color Yellow (Yellow); Urobilinogen Urine 4 mg/dL (Negative)
[2019-06-15 11:17] LABS: Add Urine Microscopic? YES; Leukocyte Esterase Urine 2+ (Negative)
[2019-06-15 11:29] LABS: Basophils % 0.3 %; Eosinophils % 0.1 %; Hematocrit 21.5 % (42.0-52.0); Lymphocytes # 0.8 10^3/uL (0.8-4.8); Mean Corpuscular HGB Conc 30.2 g/dL (30.0-36.0); Mean Corpuscular Hemoglobin 30.2 pg (28.0-34.0); Mean Platelet Volume 10.1 fL (7.4-10.4); Monocytes # 0.9 10^3/uL (0.2-0.9); Monocytes % 7.8 %; Neutrophils # 9.6 10^3/uL (1.8-7.7); Neutrophils % 84.4 %; Nucleated Red Blood Cells % 0 %; Platelet Count 329 10^3/cmm (130-400); Red Blood Count 2.15 10^6/uL (4.1-5.3); Red Cell Distribution Width 14.4 % (12.1-15.1); White Blood Count 11.4 10^3/uL (4.0-10.0)
--- NOTE | 2019-06-15 11:33 | PC.NURSE ---
patient returned from
[2019-06-15 11:35] LABS: Add Urine Culture? Yes; Bacteria Urine 2+; Mucus Urine TRACE; RBC Urine 15-25 /hpf (0-2); WBC Urine 80-100 /hpf (0-5)
[2019-06-15 11:44] LABS: INR 4.11 (0.8-1.2)
[2019-06-15 11:49] LABS: Alanine Aminotransferase 24 U/L (0-41); Alkaline Phosphatase 57 IU/L (40-130); Anion Gap 14.1 (5-19); Aspartate Amino Transferase 46 U/L (0-40); Blood Urea Nitrogen 32 mg/dL (8-23); Calcium 8.8 mg/dL (8.5-10.5); Carbon Dioxide 24 mmol/L (22-29); Chloride 99 mmol/L (98-107); Glucose 138 mg/dL (74-106); Magnesium 1.9 mg/dL (1.7-2.3); Potassium 4.1 mmol/L (3.5-5.1); Sodium 133 mmol/L (136-145); Total Bilirubin 1.2 mg/dL (0.15-1.2)
[2019-06-15 11:52] LABS: Hemoglobin 6.5 g/dL (11.7-16.6)
[2019-06-15 11:54] LABS: Partial Thromboplastin Time 81.7 SECONDS (23.9-36.7)
[2019-06-15 12:05] LABS: Troponin(5th) Baseline 50 ng/mL (0-15)
--- NOTE | 2019-06-15 12:16 | PC.NURSE ---
patient returned from ct
[2019-06-15] MEDS: sodium chloride 0.9% 1,000 ML 999 ML IV (12:31)
--- NOTE | 2019-06-15 13:40 | ECG_ITS ---
Measurements Intervals [place] Rate: 101 P: 46 MO: 196 QRS: -54 QRSD: 144 T: 18 QT: 387 QTc: 502 SINUS TACHYCARDIA RIGHT BUNDLE BRANCH BLOCK [120+ ms QRS DURATION, UPRIGHT V1, 40+ ms S IN I I/aVL/V4/V5/V6] LEFT ANTERIOR FASCICULAR BLOCK [QRS AXIS <= -45, QR IN I, RS IN II] No previous ECG available for comparison Electronically Signed On 06-15-2019 21:08:25 WATER QUALITY TECHNICIAN by Rigo Deng M.D. [id number] rios
[2019-06-15 14:14] LABS: Troponin 5 2HR 48.02 ng/mL (0-15)
[2019-06-15 14:15] LABS: Troponin 5 2HR Delta -1.98 ABS# (0-10)
[2019-06-15] MEDS: oxyCODONE-APAP 5-325 mg Tablet 1 TAB PO (15:32)
[2019-06-15] MEDS: LORazepam 2 mg/mL INJ 1 mL 0.5 MG IVP (15:33)
[2019-06-15 17:03] LABS: Glucose Point of Care 137 mg/dL (70-110)
--- NOTE | 2019-06-15 17:40 | ECG_ITS ---
Measurements Intervals [place] Rate: 95 P: 40 DE: 208 QRS: -55 QRSD: 156 T: 13 QT: 388 QTc: 488 SINUS RHYTHM WITH OCCASIONAL SUPRAVENTRICULAR PREMATURE COMPLEXES RIGHT BUNDLE BRANCH BLOCK [120+ ms QRS DURATION, UPRIGHT V1, 40+ ms S IN I/aVL/V4/V5/V6] LEFT ANTERIOR FASCICULAR BLOCK [QRS AXIS <= -45, QR IN I, RS IN II] No previous ECG available for comparison Electronically Signed On 06-15-2019 21:09:36 LUGGAGE ATTENDANT by Rigo Deng M.D. [id number]
[2019-06-15 18:16] LABS: Troponin 5 6HR 49.28 ng/L (0-15)
[2019-06-15 18:18] LABS: Troponin 5 6HR Delta -0.72 ng/L (0-12)
--- NOTE | 2019-06-15 19:30 | PM.HP ---
Providers/Chief Complaint Admitting Physician: Scout Dubon MD Primary Care Provider: Blas Jimenez MD Chief Complaint: anemia;dizziness;leg hematoma History of Present Illness Wing Vega is a 83 year old male presents to emerge department with lightheadedness and dizziness as well as frequent falls in the last 2 months. Patient initially fell 2 months ago and developed significant left hip/thigh hematoma. He was then gradually getting better up until 2 weeks ago and when he fell again and since then started getting more weak and short of breath with exertion even minimal ambulation as well as lightheadedness and dizziness. In the emergency department patient was found to be significantly anemic with hemoglobin 6.5. He reports significant size difference and left thigh/hip compared to right. He reports taking high doses of iron but denies melanotic stool and reports that it is just dark brown. He denies hematochezia and reports tunde looking urine lately. He takes warfarin because of history of DVT approximately 3 years ago. His INR frequently supratherapeutic. He was given vitamin K in ER because of INR 4.11. He is being placed for an observation to give blood. Review of Systems Const: Reports: other; Denies: fever or chills Eyes: Denies: change in vision ENMT: Denies: throat pain or nasal congestion Card: Denies: chest pain, edema, lightheadedness, shortness of breath on exertion or shortness of breath when lying down Resp: Denies: shortness of breath, productive cough, non-productive cough or coughing up blood GI: Reports: nausea; Denies: vomiting, vomiting blood, coffee grounds in vomit, difficulty swallowing, heartburn/indigestion, diarrhea, constipation, blood in stool or black tarry stool : Reports: painful urination, urinary urgency, urinary dribbling and difficulty starting urination; Denies: flank pain or difficulty urinating Musc: Denies: neck pain, back pain or joint pain Skin/Breast: Denies: rash or itching Neuro: Denies: headache, numbness in extremities, weakness in extremities, changes in sensation or lack of coordination Psych: Denies: anxiety, depression, suicidal ideation or homicidal ideation Endo: Denies: cold intolerance, excessive sweating or heat intolerance Brody/Lymph: Denies: easy bruising or tender lymph nodes Medications/Allergies Home Medications Medication Instructions Recorded Confirmed Last Taken Type celecoxib [Celebrex] 200 mg PO BID 06/15/19 06/15/19 06/15/19 History duloxetine 80 mg PO DAILY 06/15/19 06/15/19 06/15/19 History 40 mg ferrous gluconate 324 mg PO DAILY 06/15/19 06/15/19 06/15/19 History furosemide [Lasix] 40 mg PO BID PRN 06/15/19 06/15/19 Unknown History losartan 100 mg PO DAILY 06/15/19 06/15/19 06/15/19 History testosterone cypionate See Rx Instructions .ROUTE .COMPLEX 06/15/19 06/15/19 05/22/19 History warfarin 2 mg PO DAILY 06/15/19 06/15/19 06/15/19 History Allergies Allergy/AdvReac Type Severity Reaction Status Date / Time rosuvastatin [From Crestor] Allergy JOINT PAIN Verified 05/26/19 12:43 PFSH Acute PFSH: Statuses (acute, chronic, etc) shown below reflect problem list status as previously entered and may not be historically accurate Medical History (Updated 06/15/19 @ 19:48 by Scout Dubon MD) Arthritis (Acute) Depression (Acute) DVT (deep venous thrombosis) (Acute) Fluid retention in legs (Acute) Hypertension (Acute) Hypogonadism (Acute) Quadriceps tendon rupture (Acute) Urinary tract infection (Acute) Warfarin-induced coagulopathy (Acute) Surgical History (Updated 06/15/19 @ 19:48 by Scout Dubon MD) History of arthroplasty of right knee (Acute) Family History (Updated 06/15/19 @ 19:49 by Scout Dubon MD) Father Cancer Lung cancer Social History (Updated 06/15/19 @ 19:50 by Scout Dubon MD) Smoking and tobacco status: former smoker Alcohol intake: current Alcohol intake frequency: few times a month Substance/Drug Use: never Vitals/I&O/Wt Last Vital Signs Temp 97.6 F 06/15/19 17:45 Pulse 99 06/15/19 17:45 Resp 17 06/15/19 17:45 BP 116/53 06/15/19 17:45 Pulse Ox 97 06/15/19 17:45 06/15/19 06/15/19 06/15/19 06:59 14:59 22:59 Intake Total 1000 / 1000 480 / 1480 Balance 1000 / 1000 480 / 1480 Weight last 48 hrs Weight 106.141 kg Physical Exam Const: COMMON NORMALS: oriented x3; apparent distress EXAM LIMITATIONS: no altered mental status GENERAL APPEARANCE: cooperative, comfortable and well developed ORIENTATION/CONSCIOUSNESS: Yes awake, Yes oriented to person, Yes oriented to place and Yes oriented to time HENMT: COMMON NORMALS: normocephalic, head/scalp atraumatic, moist oral mucous membranes and oropharynx normal FACE & SINUS: normal facial exam NOSE: external nose normal and nares normal EXTERNAL EAR: Yes external ears normal and Yes no preauricular adenopathy MOUTH: oral and palatal mucosa normal, lip normal and tongue normal THROAT: posterior oropharynx normal Eye: COMMON NORMALS: EOMs intact bilaterally and conjunctivae normal GENERAL EYE: normal appearance of both eyes CONJUNCTIVA: Yes conjunctivae normal SCLERA: sclerae normal Neck/C-Spine: COMMON NORMALS: no lymphadenopathy, supple and no meningeal signs GENERAL: Yes normal visual inspection, Yes trachea midline and No JVD Lymph: LYMPHATIC: no lymphadenopathy noted Chest: COMMONS NORMALS: inspection of chest normal Resp: COMMON NORMALS: normal respiratory effort EFFORT & INSPECTION: Yes able to speak in complete sentences AUSCULTATION: clear to auscultation bilaterally Cardio: COMMON NORMALS: no JVD, regular rate, regular rhythm, S1 normal heart sound, S2 normal heart sound, no gallops, no murmurs and no rub GI: COMMON NORMALS: normal to inspection, nondistended, normoactive bowel sounds, soft to palpation and non-tender : COMMON NORMALS: Yes no CVA tenderness and Yes external exam normal Back/Pelvis: COMMON NORMALS: thoracic and lumbar spine normal to inspection Extremity: COMMON NORMALS: normal to inspection and no pedal edema Neuro: COMMON NORMALS: moves all extremities, no focal motor deficits and no sensory deficits noted Psych: COMMON NORMALS: mental status grossly normal, thought process normal, cooperative and speech normal Skin: OTHER: Extensive hematoma/ecchymosis of the left buttock/hip with swollen thigh up to knee. Data : 06/15/19 11:23 06/15/19 11:23 A&P Assessment and plan (1) BPH (benign prostatic hyperplasia): Status: Acute Code(s): N40.0 - Benign prostatic hyperplasia without lower urinary tract symptoms (2) Urinary tract infection: Status: Acute Code(s): N39.0 - Urinary tract infection, site not specified (3) Warfarin-induced coagulopathy: Status: Acute Code(s): D68.32 - Hemorrhagic disorder due to extrinsic circulating anticoagulants; T45.515A - Adverse effect of anticoagulants, initial encounter (4) Hypertension: Status: Acute Code(s): I10 - Essential (primary) hypertension (5) Hypogonadism: Status: Acute (6) Acute anemia: Patient's bleeding appears to be into soft tissue in the left hip/buttock/thigh and less likely GI bleed although cannot be ruled out. Status: Acute Code(s): D64.9 - Anemia, unspecified (7) Supratherapeutic INR: Status: Acute Code(s): R79.1 - Abnormal coagulation profile Additional A&P Information Start patient on ceftriaxone and Flomax. Decrease losartan to 50 mg daily. Continue with blood transfusion and check hemoglobin in a.m. Initial anemia work-up It appears that the patient bled to his left thigh and does not appear to have GI bleed. Discontinue Celebrex for now and start Protonix Discussed risks and benefits of anticoagulation and patient agreed to discontinue warfarin for now to control bleeding and once hemoglobin stabilized he will discuss with primary care physician to consider restarting anticoagulation for DVT prevention. We will change iron to every other day for better absorption. Patient never had EGD and colonoscopy and will need to have an outpatient basis. Attestations Medical Necessity Statement*: Patient with acute blood loss anemia requires observation for monitoring and treatment. I expect patient will require less than two midnights. Time Spent in Patient Care: Greater than 35 minutes Coding Level of Care Code Acute Principal Hardware Architect for g Fwd Diagnoses BPH (benign prostatic hyperplasia) N40.0 Urinary tract infection N39.0 Warfarin-induced coagulopathy D68.32; T45.515A Hypertension I10 Hypogonadism Acute anemia D64.9 Supratherapeutic INR R79.1
[2019-06-15] MEDS: fentaNYL 50 mcg Patch 1 PATCH TRANSDERMA (20:22)
[2019-06-15] MEDS: cefTRIAXone 1,000 MG in sodium chloride 0.9% (plus) 50 ML 100 MG IV (20:22)
[2019-06-15] MEDS: pantoprazole 40 mg SDV IVP (20:56)
[2019-06-16] VITALS (9 sets, daily range): BP systolic 101–165; BP diastolic 57–91; PULSE 73–96; RESP 14–18; TEMP 36.3–36.8; O2SAT 91–97
[2019-06-16 08:38] LABS: Basophils % 0.4 %; Eosinophils # 0.1 10^3/uL (0.0-0.8); Eosinophils % 0.9 %; Hematocrit 23.7 % (42.0-52.0); Hemoglobin 7.4 g/dL (11.7-16.6); Lymphocytes # 0.8 10^3/uL (0.8-4.8); Lymphocytes % 7.2 %; Mean Corpuscular HGB Conc 31.2 g/dL (30.0-36.0); Mean Corpuscular Hemoglobin 31.2 pg (28.0-34.0); Mean Platelet Volume 10.2 fL (7.4-10.4); Monocytes # 1.1 10^3/uL (0.2-0.9); Monocytes % 10.3 %; Neutrophils # 8.5 10^3/uL (1.8-7.7); Neutrophils % 80.8 %; Nucleated Red Blood Cells % 0 %; Platelet Count 411 10^3/cmm (130-400); Red Blood Count 2.37 10^6/uL (4.1-5.3); White Blood Count 10.5 10^3/uL (4.0-10.0)
[2019-06-16 08:55] LABS: Folate Level 9.1 ng/mL (4.5-32.2)
[2019-06-16 09:03] LABS: Alanine Aminotransferase 27 U/L (0-41); Albumin Level 3.1 g/dL (3.5-5.2); Alkaline Phosphatase 57 IU/L (40-130); Anion Gap 13.2 (5-19); Aspartate Amino Transferase 51 U/L (0-40); Blood Urea Nitrogen 26 mg/dL (8-23); Calcium 8.6 mg/dL (8.5-10.5); Carbon Dioxide 26 mmol/L (22-29); Chloride 100 mmol/L (98-107); Globulin 3.1 g/dL (1.3-4.6); Glucose 132 mg/dL (74-106); Potassium 4.2 mmol/L (3.5-5.1); Sodium 135 mmol/L (136-145); Total Bilirubin 1.1 mg/dL (0.15-1.2); Total Protein 6.2 g/dL (6.6-8.7)
[2019-06-16 09:08] LABS: Iron 20 ug/dL (59-158); Iron 21 ug/dL (59-158); Percent Saturation 14.4 % (20-50); Total Iron Binding Capacity 145 mcg/dl; Unsaturated Iron Binding 124 ug/dL (112-347)
[2019-06-16] MEDS: pantoprazole 40 mg SDV IVP ×2 (09:09→22:02)
[2019-06-16] MEDS: duloxetine 20 mg Capsule 80 MG PO (09:10)
[2019-06-16] MEDS: cefTRIAXone 1,000 MG in sodium chloride 0.9% (plus) 50 ML 100 MG IV ×2 (09:11→22:02)
[2019-06-16] MEDS: losartan 50 mg Tablet PO (09:11)
[2019-06-16] MEDS: tamsulosin 0.4 mg Capsule PO (09:11)
[2019-06-16 09:24] LABS: Vitamin B12 227 pg/mL (232-1245)
[2019-06-16 09:33] LABS: Ferritin 1140 ng/mL (30-400)
--- NOTE | 2019-06-16 15:08 | CTR_ITS ---
PROCEDURE INFORMATION: Exam: CT Head Without Contrast Exam date and time: 06/16/2019 4:08 PM Age: 83 years old Clinical indication: Weakness, extremity; Additional info: Strokelike symptoms TECHNIQUE: Imaging protocol: Computed tomography of the head without contrast. Total DLP: 868.58 mGy-cm Radiation optimization: All CT scans at this facility use at least one of these dose optimization techniques: automated exposure control; mA and/or kV adjustment per patient size (includes targeted exams where dose is matched to clinical indication); or iterative reconstruction. COMPARISON: CT head wo con* [id number] 06/15/2019 12:22 PM FINDINGS: Brain: Mild volume loss and white matter disease are identified. There is no acute infarct or edema. No hemorrhage. Ventricles: Normal. No ventriculomegaly. Bones/joints: Unremarkable. No acute fracture. Sinuses: There is a left maxillary sinus mucous retention cyst. Mastoid air cells: Visualized mastoid air cells are well aerated. Soft tissues: Unremarkable. CT/CT head wo con* [id number] IMPRESSION: There are no acute concerning abnormalities. Radiation Dose CTDIVOL = (mGy): DLP = 868.58 (mGy-cm)
--- NOTE | 2019-06-16 15:23 | PM.PN ---
Subjective Subjective: Interval history: Patient denies shortness of breath or chest pain this morning. Denies abdominal pain. I was approached later this afternoon by Willy physical therapist for concerning weakness on the left side. Patient was reevaluated. He does have some weakness because of chronic left knee pain as well as chronic left shoulder pain but otherwise has very strong research group director bilaterally. Patient does not have any new complaints. He has good peripheral vision bilaterally. He is alert and oriented x3. He was able to recall name of president. CT scan of the head without contrast is ordered. Patient overall feels weak throughout and wants to consider placement to nursing facility for rehabilitation. His hemoglobin is up to 7.4 this morning therefore 2 more units of blood is ordered. Vitals/I&O/Wt Last Vital Signs Temp 97.8 F 06/16/19 12:00 Pulse 84 06/16/19 12:00 Resp 16 06/16/19 12:00 BP 101/57 06/16/19 12:00 Pulse Ox 97 06/16/19 12:00 06/16/19 06/16/19 06/16/19 06:59 14:59 22:59 Intake Total 480 / 2130 600 / 600 Output Total 350 / 350 400 / 400 Balance 130 / 1780 200 / 200 Weight last 48 hrs Weight 106.141 kg Physical Exam Const: COMMON NORMALS: no apparent distress and oriented x3 Resp: COMMON NORMALS: normal respiratory effort and clear to auscultation bilaterally AUSCULTATION: clear to auscultation bilaterally Cardio: COMMON NORMALS: regular rate, regular rhythm and S2 normal heart sound RATE: regular rate RHYTHM: regular rhythm HEART SOUNDS: S2 normal OTHER: No lower extremity edema GI: COMMON NORMALS: normal to inspection, nondistended, normoactive bowel sounds, soft to palpation and non-tender PALPATION: Yes soft Neuro: COMMON NORMALS: oriented x3 and no focal motor deficits Data : 06/16/19 08:11 06/16/19 08:11 Micro: Microbiology 06/15/19 11:05 Urine Culture - Preliminary Urine,Clean Catch Streptococcus species A&P Assessment and plan (1) BPH (benign prostatic hyperplasia): Status: Acute Code(s): N40.0 - Benign prostatic hyperplasia without lower urinary tract symptoms (2) Urinary tract infection: Status: Acute Code(s): N39.0 - Urinary tract infection, site not specified (3) Warfarin-induced coagulopathy: Status: Acute Code(s): D68.32 - Hemorrhagic disorder due to extrinsic circulating anticoagulants; T45.515A - Adverse effect of anticoagulants, initial encounter (4) Hypertension: Status: Acute Code(s): I10 - Essential (primary) hypertension (5) Hypogonadism: Status: Acute (6) Acute anemia: Patient's bleeding appears to be into soft tissue in the left hip/buttock/thigh and less likely GI bleed although cannot be ruled out. Status: Acute Code(s): D64.9 - Anemia, unspecified (7) Supratherapeutic INR: Status: Acute Code(s): R79.1 - Abnormal coagulation profile Additional A&P Information Since patient stay will cross 2 midnights I will change admission status to inpatient. Awaiting head CT evaluation. Will repeat PT/INR in a.m. I had extensive discussion with patient and his at bedside regarding risks and benefits of anticoagulation. Patient and agreed to hold anticoagulation for now until bleeding is controlled and hemoglobin starts recovering. Attestations Medical Necessity Statement*: Patient with blood loss anemia requires close inpatient monitoring and treatment. Time Spent in Patient Care: Greater than 35 minutes Coding Level of Care Code Acute Assistance Coordinator for g Fwd Diagnoses BPH (benign prostatic hyperplasia) N40.0 Urinary tract infection N39.0 Warfarin-induced coagulopathy D68.32; T45.515A Hypertension I10 Hypogonadism Acute anemia D64.9 Supratherapeutic INR R79.1
[2019-06-16] MEDS: sodium chloride 0.9% 100 ML (18:08)
[2019-06-17] VITALS (12 sets, daily range): BP systolic 122–169; BP diastolic 65–94; PULSE 84–97; RESP 15–24; TEMP 36.5–36.9; O2SAT 92–98
[2019-06-17] MEDS: sodium chloride 0.9% 100 ML 30 ML (04:28)
[2019-06-17 05:50] LABS: INR 2.85 (0.8-1.2)
[2019-06-17] MEDS: ferrous gluconate 324 mg Tablet PO (08:55)
[2019-06-17] MEDS: duloxetine 20 mg Capsule 80 MG PO (08:55)
[2019-06-17] MEDS: losartan 50 mg Tablet PO (08:55)
[2019-06-17] MEDS: tamsulosin 0.4 mg Capsule PO (08:56)
[2019-06-17] MEDS: pantoprazole 40 mg SDV IVP ×2 (08:56→20:56)
[2019-06-17] MEDS: cefTRIAXone 1,000 MG in sodium chloride 0.9% (plus) 50 ML 100 MG IV ×2 (08:57→20:57)
[2019-06-17] MEDS: HYDROcodone-acetaminophen 10-325 mg Tablet PO ×2 (09:54→16:30)
[2019-06-17 09:58] LABS: Basophils % 0.3 %; Eosinophils # 0.1 10^3/uL (0.0-0.8); Eosinophils % 0.9 %; Hematocrit 30.5 % (42.0-52.0); Hemoglobin 9.8 g/dL (11.7-16.6); Lymphocytes # 0.7 10^3/uL (0.8-4.8); Lymphocytes % 5.9 %; Mean Corpuscular HGB Conc 32.1 g/dL (30.0-36.0); Mean Corpuscular Hemoglobin 29.6 pg (28.0-34.0); Mean Corpuscular Volume 92.1 fL (80-94); Mean Platelet Volume 9.5 fL (7.4-10.4); Monocytes # 0.9 10^3/uL (0.2-0.9); Neutrophils # 9.4 10^3/uL (1.8-7.7); Nucleated Red Blood Cells % 0.4 %; Platelet Count 407 10^3/cmm (130-400); Red Blood Count 3.31 10^6/uL (4.1-5.3); Red Cell Distribution Width 16.4 % (12.1-15.1); White Blood Count 11.2 10^3/uL (4.0-10.0)
--- NOTE | 2019-06-17 12:30 | PC.CHAP ---
Pastoral Care Encounter/Spiritual Assessment Type of Contact [] Declined cable strander visit [] Patient/Family/Request visit [] Outpatient visit [] Follow-up visit [] Physician referral [] Code/Alert [] Routine visit [] Staff referral [] Actively dying [] Patient sleeping [] Family support [] [] Out of room [] Palliative care [] [] Receiving care in room [] Pre-surgical visit [] Trauma [] Long length of stay [] ICU visit [] Other: Relational/Emotional Strength [] Patient feels connected with others/family/visitors/staff [] Distress [] Loneliness/isolation [] Abandonment Spirituality of Patient [X] Person of Jessy [] Attends Caodaism of their Jessy [] Believes in Prayer [] Reads Bible or Mormonism materials [] There are Spiritual issues to be addressed Print Developer Interventions [X] Prayer [X] Active listening [X] Non-anxious presence [X] Spiritual/emotional support [] Crisis/trauma care [] Spiritual counseling [] Bereavement support [] Provided bereavement packet [] Provided Bible/devotional materials [] Provided toy/stuffed animal, coloring book to patient or family member [] Provided Communion [] Anointing/[place] [] Salvation [X] Completed spiritual assessment [] Other: Impact on Illness or Injury [] Angry [X Fearful [] Anxious [] Often cries [] Exhaustion [] Unable to work [] Unable to attend pentecostalism [] Unable to walk/stand [] Unable to read [] Unable to drive [] Unable to eat/drink [] Unable to sleep [] Unable to be with family [] Patient intubated [] Other: Summary PATIENT WORRIED ABOUT WHATS WRONG WITH HIM Time spent with patient ONE VISITOR 15 MIN
--- NOTE | 2019-06-17 15:08 | PM.PN ---
Subjective Subjective: Interval history: Patient reports being unchanged. Denies any shortness of breath or chest pain. His urine is growing Streptococcus species. Final identification and susceptibility is pending. Suspected to be Enterococcus faecalis. Hemoglobin responded to blood transfusion. White blood cell count slightly up. Vitals/I&O/Wt Last Vital Signs Temp 98.0 F 06/17/19 11:29 Pulse 97 06/17/19 11:29 Resp 20 H 06/17/19 11:29 BP 123/73 06/17/19 11:29 Pulse Ox 93 06/17/19 11:29 06/17/19 06/17/19 06/17/19 06:59 14:59 22:59 Intake Total 1002 / 2122 720 / 720 Output Total 300 / 800 450 / 450 Balance 702 / 1322 270 / 270 Physical Exam Const: COMMON NORMALS: no apparent distress and oriented x3 Resp: COMMON NORMALS: normal respiratory effort and clear to auscultation bilaterally AUSCULTATION: clear to auscultation bilaterally Cardio: COMMON NORMALS: regular rate, regular rhythm and S2 normal heart sound RATE: regular rate RHYTHM: regular rhythm HEART SOUNDS: S2 normal OTHER: No lower extremity edema GI: COMMON NORMALS: normal to inspection, nondistended, normoactive bowel sounds, soft to palpation and non-tender PALPATION: Yes soft Neuro: COMMON NORMALS: oriented x3 and no focal motor deficits Data : 06/17/19 09:34 06/16/19 08:11 Micro: Microbiology 06/15/19 11:05 Urine Culture - Preliminary Urine,Clean Catch Streptococcus species A&P Assessment and plan (1) BPH (benign prostatic hyperplasia): Status: Acute Code(s): N40.0 - Benign prostatic hyperplasia without lower urinary tract symptoms (2) Urinary tract infection: Status: Acute Code(s): N39.0 - Urinary tract infection, site not specified (3) Warfarin-induced coagulopathy: Status: Acute Code(s): D68.32 - Hemorrhagic disorder due to extrinsic circulating anticoagulants; T45.515A - Adverse effect of anticoagulants, initial encounter (4) Hypertension: Status: Acute Code(s): I10 - Essential (primary) hypertension (5) Hypogonadism: Status: Acute (6) Acute anemia: Patient's bleeding appears to be into soft tissue in the left hip/buttock/thigh and less likely GI bleed although cannot be ruled out. Status: Acute Code(s): D64.9 - Anemia, unspecified (7) Supratherapeutic INR: Status: Acute Code(s): R79.1 - Abnormal coagulation profile Additional A&P Information We will add vancomycin for now and continue monitoring. Awaiting culture results. INR is 2.85 and warfarin currently on hold. Will let gradually INR normalize. Continue physical therapy. Monitor hemoglobin. Attestations Medical Necessity Statement*: Patient with UTI and generalized weakness requires close inpatient monitoring and treatment until deemed safe for discharge. Coding Level of Care Code Acute Liaison Engineer for Chg Fwd Diagnoses BPH (benign prostatic hyperplasia) N40.0 Urinary tract infection N39.0 Warfarin-induced coagulopathy D68.32; T45.515A Hypertension I10 Hypogonadism Acute anemia D64.9 Supratherapeutic INR R79.1
[2019-06-18] VITALS (7 sets, daily range): BP systolic 102–147; BP diastolic 50–85; PULSE 78–97; RESP 17–20; TEMP 36.4–36.7; O2SAT 94–98
[2019-06-18] MEDS: HYDROcodone-acetaminophen 10-325 mg Tablet PO ×3 (00:02→17:13)
[2019-06-18] MEDS: duloxetine 20 mg Capsule 80 MG PO (08:48)
[2019-06-18] MEDS: cefTRIAXone 1,000 MG in sodium chloride 0.9% (plus) 50 ML 100 MG IV ×2 (08:49→21:31)
[2019-06-18] MEDS: pantoprazole 40 mg SDV IVP ×2 (08:49→21:32)
[2019-06-18] MEDS: tamsulosin 0.4 mg Capsule PO (08:49)
[2019-06-18] MEDS: losartan 50 mg Tablet PO (08:49)
--- NOTE | 2019-06-18 12:10 | CTR_ITS ---
PROCEDURE INFORMATION: Exam: CT Left Lower Extremity Without Contrast, Knee Exam date and time: 06/18/2019 6:32 PM Age: 83 years old Clinical indication: Pain; Swelling, leg or foot; Knee; Left; Additional info: R/O meniscal injury TECHNIQUE: Imaging protocol: CT of the Left lower extremity without contrast was performed. Exam focused on the knee. Total DLP: 813.09 mGy-cm Radiation optimization: All CT scans at this facility use at least one of these dose optimization techniques: automated exposure control; mA and/or kV adjustment per patient size (includes targeted exams where dose is matched to clinical indication); or iterative reconstruction. COMPARISON: CR Knee 4 views, LEFT [id number] 03/14/2017 1:04 PM FINDINGS: Bones/joints: Severe diffuse degenerative changes are noted in all compartments of the knee. There is joint space narrowing and sclerosis with marginal osteophytes involving all articular surfaces in the knee joint. There is a large knee joint effusion. Osteochondral bodies are noted in the suprapatellar pouch measuring up to 1 cm in greatest dimension. Additional small osteochondral bodies are noted in the knee joint measuring up to 5 mm in greatest dimension. 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 There is marked joint space narrowing in the weight-bearing knee joint greater in the lateral compartment. Moderate to severe degenerative changes at the proximal tibiofibular joint are also noted with bony remodeling. No aggressive a neoplastic bony destruction or fracture is identified. Soft tissues: This exam is limited without arthrogram contrast injection to evaluate for meniscal tear as suggested in the history. This is a noncontrast study. An arthrogram CT may be helpful if the patient cannot have an MRI. There is abundant soft tissue edema/subcutaneous edema in the distal thigh, superficial the knee and extending into the upper leg. This is a diffuse nonspecific appearance and may reflect lymphedema, venous stasis or mild cellulitis. There is no gas in the muscles or soft tissues. There is a small Melendrez's cyst. Vasculature: Scattered vascular calcifications are noted. CT/CT knee LT wo con* [id number] IMPRESSION: 1. This exam is limited without arthrogram contrast injection to evaluate for meniscal tear as suggested in the history. This is a noncontrast study. An arthrogram CT may be helpful to further evaluate the meniscal detail as clinically warranted if the patient cannot have an MRI. 2. Severe diffuse degenerative changes with a large knee joint effusion. Multiple osteochondral bodies are noted in the joint. 3. 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 4. Nonspecific subcutaneous edema as above. Radiation Dose CTDIVOL = (mGy): DLP = 813.09 (mGy-cm)
--- NOTE | 2019-06-18 18:41 | PM.PN ---
Subjective Subjective: Interval history: This morning on examination patient is lying comfortably in bed. He denies of having any nausea, vomiting, headache, dizziness, palpitations, abdominal pain. States he had a bowel movement today morning. Stool for occult blood is awaited but unfortunately was not sent today morning. Labs reviewed. Vitals/I&O/Wt Last Vital Signs Temp 98.1 F 06/18/19 15:34 Pulse 78 06/18/19 15:34 Resp 18 06/18/19 15:34 BP 118/70 06/18/19 15:34 Pulse Ox 95 06/18/19 15:34 06/18/19 06/18/19 06/18/19 06:59 14:59 22:59 Intake Total 450 / 1470 820 / 820 240 / 1060 Output Total 225 / 775 600 / 600 400 / 1000 Balance 225 / 695 220 / 220 -160 / 60 Physical Exam Narrative: EXAM NARRATIVE: General: No acute distress, AO x3 HEENT: PERRLA, pupils bilaterally equal and reactive Chest: Normal vesicular breath sounds, no added sounds, equal good air entry bilaterally CVS: S1-S2 regular, no murmurs, no tachycardia, no gallops, no rubs Abdomen: Soft, nontender, no organomegaly, bowel sounds present Neuro: No focal deficits, no facial deformity, AO x3, power 5/5 in all limbs. Extremities: Swelling present in the left knee, edema present all over the leg, no tenderness, bilateral pedal pulses palpable. Data : 06/17/19 09:34 06/16/19 08:11 A&P Assessment and plan (1) Urinary tract infection: Status: Acute Code(s): N39.0 - Urinary tract infection, site not specified (2) Warfarin-induced coagulopathy: Status: Acute Code(s): D68.32 - Hemorrhagic disorder due to extrinsic circulating anticoagulants; T45.515A - Adverse effect of anticoagulants, initial encounter (3) Supratherapeutic INR: Status: Acute Code(s): R79.1 - Abnormal coagulation profile (4) Acute anemia: Patient's bleeding appears to be into soft tissue in the left hip/buttock/thigh and less likely GI bleed although cannot be ruled out. Status: Acute Code(s): D64.9 - Anemia, unspecified (5) Hypertension: Status: Acute Code(s): I10 - Essential (primary) hypertension (6) Hypogonadism: Status: Acute (7) BPH (benign prostatic hyperplasia): Status: Acute Code(s): N40.0 - Benign prostatic hyperplasia without lower urinary tract symptoms Additional A&P Information Urinary tract infection: Patient is not in sepsis. Has no tachycardia, blood pressure within normal limits. Patient is on ceftriaxone since admission and vancomycin was added yesterday for possible enterococcus. We will continue on current treatment and de-escalate antibiotics as per the culture sensitivities. Supratherapeutic INR/warfarin induced coagulopathy: History of DVT. Goal INR 2-3. INR 2.85 today. At home patient is supposed to be on warfarin 2 mg daily. We will recheck INR tomorrow morning. We will continue to hold warfarin for at least 7 more days due to bleeding into his left thigh. This was discussed with the patient on admission by the admitting provider. Anemia: Post units PRBC. Hemoglobin stable for now. Most likely due to bleeding into the left thigh. Stool for occult blood awaited. Continue with Protonix twice daily for now. Patient will most likely need to have EGD and colonoscopy as an outpatient. Continue with oral iron supplementation. Left knee tenderness: Patient states she is been having pain since he fell. Will do CT knee to evaluate further. Physical therapy. Hypertension: Continue with home dose of losartan. Full code: Hold off on therapeutic DVT prophylaxis due to anemia and bleeding into left thigh and supratherapeutic INR. Regular diet. Dispo: Patient most likely going to SNF for further rehabilitation. Family is agreeable. Attestations Medical Necessity Statement*: Needs further hospitalization for management of UTI and anemia. Time Spent in Patient Care: 16 - 35 minutes Coding Level of Care Code Acute Supervisor Personnel Clerks for [facility] Fwd Diagnoses Urinary tract infection N39.0 Warfarin-induced coagulopathy D68.32; T45.515A Supratherapeutic INR R79.1 Acute anemia D64.9 Hypertension I10 Hypogonadism BPH (benign prostatic hyperplasia) N40.0
[2019-06-18] MEDS: fentaNYL 50 mcg Patch 1 PATCH TRANSDERMA (21:32)
[2019-06-19] VITALS: BP 105/52; PULSE 99; RESP 19; TEMP 36.8; O2SAT 97
[2019-06-19 04:00] VITALS: BP 147/70; PULSE 83; RESP 18; TEMP 36.8; O2SAT 99
[2019-06-19 06:54] LABS: Basophils % 0.4 %; Eosinophils # 0.2 10^3/uL (0.0-0.8); Eosinophils % 2.7 %; Hematocrit 32.5 % (42.0-52.0); Hemoglobin 9.8 g/dL (11.7-16.6); Lymphocytes # 0.7 10^3/uL (0.8-4.8); Lymphocytes % 9.2 %; Mean Corpuscular HGB Conc 30.2 g/dL (30.0-36.0); Mean Corpuscular Hemoglobin 30.2 pg (28.0-34.0); Mean Corpuscular Volume 100.3 fL (80-94); Monocytes # 0.8 10^3/uL (0.2-0.9); Monocytes % 11.3 %; Neutrophils # 5.7 10^3/uL (1.8-7.7); Nucleated Red Blood Cells % 0.4 %; Platelet Count 417 10^3/cmm (130-400); Red Blood Count 3.24 10^6/uL (4.1-5.3); Red Cell Distribution Width 15.8 % (12.1-15.1); White Blood Count 7.4 10^3/uL (4.0-10.0)
[2019-06-19 07:05] LABS: INR 2.07 (0.8-1.2)
[2019-06-19 07:08] LABS: Vancomycin Trough 7.8 ug/mL (10-15)
[2019-06-19 07:19] LABS: Alanine Aminotransferase 41 U/L (0-41); Albumin Level 2.9 g/dL (3.5-5.2); Alkaline Phosphatase 64 IU/L (40-130); Anion Gap 17.3 (5-19); Aspartate Amino Transferase 38 U/L (0-40); Blood Urea Nitrogen 13 mg/dL (8-23); Calcium 8.2 mg/dL (8.5-10.5); Carbon Dioxide 22 mmol/L (22-29); Chloride 97 mmol/L (98-107); Globulin 2.4 g/dL (1.3-4.6); Glucose 126 mg/dL (65-115); Potassium 4.3 mmol/L (3.5-5.1); Sodium 132 mmol/L (136-145); Total Bilirubin 1.1 mg/dL (0.15-1.2); Total Protein 5.3 g/dL (6.6-8.7)
[2019-06-19 08:00] VITALS: BP 136/70; PULSE 88; RESP 20; TEMP 37.1; O2SAT 95
--- NOTE | 2019-06-19 09:50 | PC.SOCIAL ---
IMM Update Pg 2 of IMM given and explained to patient who voiced understanding. Signed, dated, timed, and placed in chart. Copy provided to patient.
[2019-06-19] MEDS: duloxetine 20 mg Capsule 80 MG PO (10:21)
[2019-06-19] MEDS: cefTRIAXone 1,000 MG in sodium chloride 0.9% (plus) 50 ML 100 MG IV (10:21)
[2019-06-19] MEDS: pantoprazole 40 mg SDV IVP (10:21)
[2019-06-19] MEDS: ferrous gluconate 324 mg Tablet PO (10:22)
[2019-06-19] MEDS: losartan 50 mg Tablet PO (10:22)
[2019-06-19] MEDS: tamsulosin 0.4 mg Capsule PO (10:22)
--- NOTE | 2019-06-19 11:40 | PM.DCS ---
Discharge Providers Date of Admission: 06/16/19 15:29 Date of Discharge: Date of Discharge: June 19, 2019 Attending Provider at Admission: Scout Dubon MD Attending Provider at Discharge: Scar Mg MD Primary Care Provider: Blas Jimenez MD Diagnoses at Discharge Discharge Diagnosis (1) Urinary tract infection: Status: Acute (2) Warfarin-induced coagulopathy: Status: Acute (3) Supratherapeutic INR: Status: Acute (4) Acute anemia: Status: Acute (5) Hypertension: Status: Acute (6) Hypogonadism: Status: Acute (7) BPH (benign prostatic hyperplasia): Status: Acute Reason for Visit Reason for Visit: Reason For Visit: anemia;dizziness;leg hematoma Hospital Course Discharge Summary: Wing Vega is a 83 year old male presented to emergency department on June 152019 with lightheadedness and dizziness as well as frequent falls in the last 2 months. Patient initially fell 2 months ago and developed significant left hip/thigh hematoma. He was then gradually getting better up until 2 weeks ago and when he fell again and since then started getting more weak and short of breath with exertion even minimal ambulation as well as lightheadedness and dizziness. In the ER he was found to be severely anemic with hemoglobin of 6.[address] scan for hip done in the ER showed that he had hematoma in his left hip which is most likely where he was bleeding post his fall. 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 His INR was 4.11 on admission which was reversed with vitamin K. He was transfused 2 unit of PRBC and his hemoglobin recovered appropriately. His hemoglobin level remained stable during his hospitalization. His lab work from admission was also suggestive of a UTI for which she was started on broad-spectrum antibiotics. His urine cultures later came back for Aerococcus which were susceptible to beta-lactam's. Patient responded well to the antibiotic treatment and is being discharged on Augmentin to finish a course of 10 days. Patient also had swelling and pain in his left knee for which CT scan of the knee was done to rule out any fracture or meniscal injury. 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 Dr. Caldwell from orthopedics was asked for recommendations. She suggested physical therapy for improvement of range of motion along with pain control. Given the recurrent falls placement to residential was discussed and patient and his agreed to above. Further anticoagulation was also discussed given the recurrent falls and adverse effects of a possible another bleeding episode versus hemorrhagic stroke were discussed versus a possible embolic stroke or DVT while not being on anticoagulation were also discussed. Patient verbalized the understanding and stated that he would want to avoid any further bleeding events so he is being discharged off any anticoagulation. Patient has been discharged hemodynamically stable condition on Augmentin to finish a course of 10 days along with pain regimen and off warfarin to SNF for further rehabilitation. Physical Exam Narrative: EXAM NARRATIVE: General: No acute distress, AO x3 HEENT: PERRLA, pupils bilaterally equal and reactive Chest: Normal vesicular breath sounds, no added sounds, equal good air entry bilaterally CVS: S1-S2 regular, no murmurs, no tachycardia, no gallops, no rubs Abdomen: Soft, nontender, no organomegaly, bowel sounds present Neuro: No focal deficits, no facial deformity, AO x3, power 5/5 in all limbs. Extremities: Swelling present in the left knee, edema present all over the leg, no tenderness, bilateral pedal pulses palpable. Discharge Data Data Completed and Pending: Completed Studies During Hospitalization Category Date Time Status CT head wo con* 7 0450 Routine Cat Scan 06/16/19 15:[address] head wo con* 7 0450 Urgent Cat Scan 06/15/19 10:[address] knee LT wo con * [id number] Routine Cat Scan 06/18/19 12:10 Completed XR chest 1V sushil ble [id number] Urgent Exams 06/15/19 10:57 Completed XR hip LT 2-3V wo /w pel* [id number] Urge nt Exams 06/15/19 09:17 [place] [id number] Urgent Ultrasound 06/15/19 09:17 Completed US soft tissue/ex tremity 90265 Urge nt Ultrasound 06/15/19 09:33 Completed Pending at discharge Category Date Time Status Immunochemical Fe aquiles OCB Routine Lab 06/15/19 20:12 Uncollected Urine Culture Sta t Lab 06/15/19 11:05 Results Labs from last 24 hours 06/19/19 06/19/19 06/19/19 06:10 06:10 06:10 WBC 7.4 RBC 3.24 L Hgb 9.8 L Hct 32.5 L MCV 100.3 H MCH 30.2 MCHC 30.2 RDW 15.8 H Plt Count 417 H MPV 10.0 Neut % (Auto) 76.0 Lymph % (Auto) 9.2 [place] % (Auto) 11.3 Eos % (Auto) 2.7 Baso % (Auto) 0.4 Neut # (Auto) 5.7 Lymph # (Auto) 0.7 L [place] # (Auto) 0.8 Eos # (Auto) 0.2 Baso # (Auto) 0.0 Nucleated RBC % (a uto) 0.4 Nucleated RBCs # 0.0 PT 24.10 H INR 2.07 H Sodium 132 L Potassium 4.3 Chloride 97 L Carbon Dioxide 22 Anion Gap 17.3 BUN 13 Creatinine 0.7 Glucose 126 H Calcium 8.2 L Total Bilirubin 1.1 AST 38 ALT 41 Alkaline Phosphata se 64 Total Protein 5.3 L Albumin 2.9 L Globulin 2.4 Vancomycin Trough Crossmatch 06/19/19 06/15/19 06:10 12:27 WBC RBC Hgb Hct MCV MCH MCHC RDW Plt Count MPV Neut % (Auto) Lymph % (Auto) [place] % (Auto) Eos % (Auto) Baso % (Auto) Neut # (Auto) Lymph # (Auto) [place] # (Auto) Eos # (Auto) Baso # (Auto) Nucleated RBC % (a uto) Nucleated RBCs # PT INR Sodium Potassium Chloride Carbon Dioxide Anion Gap BUN Creatinine Glucose Calcium Total Bilirubin AST ALT Alkaline Phosphata se Total Protein Albumin Globulin Vancomycin Trough 7.8 L Crossmatch See Detail Vitals: Last Vital Signs Temp 98.7 F 06/19/19 08:00 Pulse 88 06/19/19 08:00 Resp 20 H 06/19/19 08:00 BP 136/70 06/19/19 08:00 Pulse Ox 95 06/19/19 08:00 Discharge Plan Discharge Patient Disposition: Xfer SNF Condition: Stable Prescriptions: New diclofenac sodium 1 % Gel 1 applic topical QID Qty: 40 RF: 0 Augmentin 875-125 mg tablet 1 tab PO Q12H 10 Days Qty: 20 RF: 0 Continued fentanyl 50 mcg/hr patch 72 hour 1 patch TRANSDERMA Q72H 30 Days Qty: 10 RF: 0 hydrocodone-acetaminophen 10-325 mg tablet 1 - 2 tab PO Q6H PRN (Reason: pain) 30 Days Qty: 90 RF: 0 Lasix 40 mg Tablet 40 mg PO BID PRN (Reason: Edema) RF: 0 testosterone cypionate 200 mg/mL Kit See Rx Instructions .ROUTE .COMPLEX RF: 0 duloxetine 40 mg Capsule, Delayed Rel Sprinkle 80 mg PO DAILY RF: 0 ferrous gluconate 324 mg (37.5 mg iron) tablet 324 mg PO DAILY RF: 0 Changed losartan 100 mg Tablet 50 mg PO DAILY Qty: 30 RF: 0 Discontinued celecoxib [Celebrex] 200 mg Capsule 200 mg PO BID RF: 0 warfarin 1 mg Tablet 2 mg PO DAILY RF: 0 Discharge Orders: Discharge Order (Routine); Ordered 06/19/19 Ordered By: Scar Mg Referrals: Blas Jimenez MD [Primary Care Provider] - 07/02/19 3:15 pm Discharge Diet: Cardiac Discharge Activity: Increase activity as tolerated and As per PT/OT instructions Patient Instructions: Anticoagulation Therapy, Diclofenac (By mouth), Amoxicillin/Clavulanate Potassium (By mouth), Hypertension, Benign Prostatic Hypertrophy (DC), Urinary Tract Infection in Men (DC) Discharge Date/Time: 06/19/19 14:10 Discharge Attestations Time Spent in Discharge Care*: greater than 30 min Specific Discharge Activities: Specific discharge activities: educating patient, educating and/or supporting family/caregiver and discussing with bilingual patient support caseworker/social workers/dc planners Status at Discharge: Cognitive status at discharge: cognitively intact, Behavioral status at discharge: cooperative, Functional status at discharge: independent ambulation Overall status at discharge: patient is progressing back to baseline Quality Metrics Clinical Quality Measures During this hospital stay, did patient experience: None Coding Level of Care Code Acute Auditor In Charge for Mary Jane Fwd Diagnoses Urinary tract infection N39.0 Warfarin-induced coagulopathy D68.32; T45.515A Supratherapeutic INR R79.1 Acute anemia D64.9 Hypertension I10 Hypogonadism BPH (benign prostatic hyperplasia) N40.0
[2019-06-19 11:50] VITALS: BP 150/75; PULSE 98; RESP 18; TEMP 37.1; O2SAT 91
[2019-06-19] MEDS: diclofenac 1% Topical Gel 100 gm 1 APPLIC TOPICAL (11:54)
[2019-06-19 13:18] VITALS: BP 150/75; PULSE 98; RESP 18; TEMP 37.1; O2SAT 91
[2019-06-19] MEDS: lidocaine 5% Patch 1 PATCH TOPICAL (13:50)
== END 2019-06-19 14:10 | disposition skilled nursing facility (03) | DRG 605 ==
LOC: ER 15:01 → MEDSURG 15:17
PROVIDERS: Physician Assistant; Admitting Provider Internal Medicine; Emergency Provider Emergency Medicine; Family Provider Internal Medicine; PCP Internal Medicine; Visit Provider Student in an Organized Health Care Education/Training Program
DX: S70.12XA Contusion of left thigh, initial encounter (principal); N39.0 Urinary tract infection, site not specified; D64.9 Anemia, unspecified; N40.0 Benign prostatic hyperplasia without lower urinary tract symptoms; R79.1 Abnormal coagulation profile; Z86.718 Personal history of other venous thrombosis and embolism; T45.515A Adverse effect of anticoagulants, initial encounter; I10 Essential (primary) hypertension; Z88.8 Allergy status to other drugs, medicaments and biological substances; F32.9 Major depressive disorder, single episode, unspecified; E29.1 Testicular hypofunction; Z87.891 Personal history of nicotine dependence; Z96.651 Presence of right artificial knee joint; G89.29 Other chronic pain; R53.1 Weakness; M25.562 Pain in left knee; R29.6 Repeated falls; W19.XXXA Unspecified fall, initial encounter
CPT/HCPCS: 12345; 36415; 36416; 36430; 70450; 71045; 73502; 73700; 76882; 80053; 80202; 81001; 82607; 82728; 82746; 82962; 83540; 83550; 83735; 84484; 85025; 85610; 85730; 86850; 86900; 87077; 87086; 93005; 93971; 96360; 96375; 97110; 97116; 97162; 97530; 99284; C9113; G0378; J0696; J2060; J3370; J7030; J7050; P9016; P9058

== ENCOUNTER → 2019-07-16 13:33 | Outpatient (BNVA) | payer MEDICARE, OTHER, SELFPAY | PROVIDERS: Family Provider Internal Medicine; PCP Internal Medicine; Visit Provider Specialist | DX: M17.0 Bilateral primary osteoarthritis of knee (principal) | CPT/HCPCS: 73560; 73565 ==

== ENCOUNTER → 2019-07-23 15:30 | Outpatient (BNVA) | payer MEDICARE, OTHER, SELFPAY | PROVIDERS: Family Provider Internal Medicine; PCP Internal Medicine; Visit Provider Internal Medicine | DX: D64.9 Anemia, unspecified (principal); Z86.711 Personal history of pulmonary embolism; I10 Essential (primary) hypertension | CPT/HCPCS: 85025 ==

== ENCOUNTER 2020-07-17 07:44 | Inpatient (IN) | payer MEDICARE, OTHER, SELFPAY ==
[2020-07-17] VITALS (116 sets, daily range): BP systolic 108–214; BP diastolic 57–103; PULSE 58–110; RESP 0–34; TEMP 36.6–36.9; O2SAT 86–100; BMI 35.7
--- NOTE | 2020-07-17 07:49 | XRR_ITS ---
PROCEDURE INFORMATION: Exam: XR Chest Exam date and time: 07/17/2020 8:02 AM Age: 84 years old Clinical indication: Cardiovascular condition or disease; Other: CVA TECHNIQUE: Imaging protocol: XR of the chest Views: 1 view. COMPARISON: CR XR chest 1V portable [id number] 06/15/2019 11:27 AM FINDINGS: Lungs: Low lung volumes. No evidence of focal consolidation to suggest pneumonia. Minimal left basilar atelectasis. Pleural spaces: Unremarkable. No pleural effusion. No pneumothorax. Heart/Mediastinum: Stable cardiomediastinal silhouette. Vasculature: Aortic arch atherosclerotic calcifications seen. Bones/joints: Degenerative changes of the spine and shoulder joints noted. XR/XR chest 1V portable [id number] IMPRESSION: No evidence active cardiopulmonary disease.
--- NOTE | 2020-07-17 07:49 | CTR_ITS ---
PROCEDURE INFORMATION: Exam: CT Head Without Contrast Exam date and time: 07/17/2020 7:50 AM Age: 84 years old Clinical indication: Altered mental status/memory loss and speech disturbance; Additional info: CVA TECHNIQUE: Imaging protocol: Computed tomography of the head without contrast. Radiation optimization: All CT scans at this facility use at least one of these dose optimization techniques: automated exposure control; mA and/or kV adjustment per patient size (includes targeted exams where dose is matched to clinical indication); or iterative reconstruction. Other technique: STROKE PROTOCOL was implemented. COMPARISON: CT head wo con* [id number] 06/16/2019 9:24 PM RADIATION DOSE METRICS: Total DLP (mGy-cm): 916.49 FINDINGS: Brain: No hemorrhage, mass effect or midline shift. No acute, major vascular distribution infarction identified. Two focal areas of encephalomalacia are again seen in the periventricular region of the right frontal lobe, consistent previous insult. There is foci of decreased attenuation in the periventricular and subcortical white matter, likely representing chronic small vessel ischemic changes. Mild cerebral volume loss is present. No intra-axial or extra-axial fluid collection seen. Cerebral ventricles: No ventriculomegaly. Bones/joints: Unremarkable. No acute fracture. Paranasal sinuses: There is partial opacification of the left maxillary sinus by a 2.2 cm mucous retention cyst or polyp. Other paranasal sinuses are well aerated. Mastoid air cells: Visualized mastoid air cells are well aerated. Soft tissues: Unremarkable. CT/CT head wo con* [id number] IMPRESSION: No acute intracranial abnormality. ASSESSMENT: ASPECTS ([place] Stroke Program Early CT Score) is 10. Radiation Dose CTDIVOL = (mGy): DLP = 916.49 (mGy-cm)
--- NOTE | 2020-07-17 07:50 | ECG_ITS ---
[facility] Test Date: 2020-07-17 Pat Name: Wing Vega Department: Room: Gender: Male Major Case Detective: : 1935 Requested By: Sofia Lara Order Number: [id number] Reading MD: KRYSTAL VINSON Measurements Intervals [place] Rate: 66 P: 44 DE: 263 QRS: -68 QRSD: 166 T: -18 QT: 425 QTc: 446 Interpretive Statements SINUS RHYTHM WITH FIRST DEGREE AV BLOCK RIGHT BUNDLE BRANCH BLOCK [120+ ms QRS DURATION, UPRIGHT V1, 40+ ms S IN I/aVL/V4/V5/V6] LEFT ANTERIOR FASCICULAR BLOCK [QRS AXIS <= -45, QR IN I, RS IN II] Compared to ECG 06/15/2019 18:12:56 First degree AV block now present Electronically Signed On 07-17-2020 17:43:46 [employer]URNER by KRYSTAL VINSON [email or web address]
--- NOTE | 2020-07-17 07:51 | W.ED.NEUROSD ---
HPI - Neuro Symptoms/Deficit General: Chief Complaint: Neuro Symptoms/Deficit Stated Complaint: EXTREMITY WEAKNESS Time Seen by Provider: 07/17/20 07:44 Source: patient and EMS Mode of arrival: EMS Limitations: no limitations History of Present Illness: HPI Narrative: 84-year-old male states that he woke up at 430 this morning was completely fine when he got a pain medicine due to chronic pain. He states he then woke up at 630 and was unable to get out of bed. Patient slid out of bed and states that he could not move his right side. Patient also has slurred speech. He is having very difficult time moving his right side and having a hard time communicating. I am and able to understand him but he is quite slurred. He has a right facial droop as well. He has no known history of stroke. He is not on any blood thinners. Denies any recent head injuries. Associated symptoms: Deny chest pain, headache(s), nausea or vomiting Review of Systems Const: Denies: fever(s), chills, body aches or change in appetite Eyes: Denies: blurry vision or eye discomfort ENMT: Denies: throat pain or dental pain Card: Denies: chest pain Resp: Denies: dyspnea GI: Denies: abdominal pain, nausea, vomiting or diarrhea : Denies: dysuria Musc: Denies: neck pain or back pain Skin/Breast: Denies: rash Neuro: Reports: weakness in extremities and Slurred speech present; Denies: headache(s) Psych: Denies: depression Brody/Lymph: Denies: easy bruising All/Imm: Denies: urticaria PFSH ED PFSH: Medical History (Updated 07/17/20 @ 09:35 by Sofia Lara MD) Arthritis Depression DVT (deep venous thrombosis) Fluid retention in legs Hypertension Hypogonadism Quadriceps tendon rupture Urinary tract infection Warfarin-induced coagulopathy Surgical History History of arthroplasty of right knee Family History Father Cancer Lung cancer Social History Smoking and tobacco status: former smoker Alcohol intake: current Alcohol intake frequency: few times a month History of recent travel: No NIH stroke score NIHSS: Level Of Consciousness - 1a: 0 Level Of Consciousness Questions - 1b: Both Correct Level Of Consciousness Commands - 1c: Both Correct Best Gaze - 2: Normal Visual Mcgill - 3: No Visual Loss Facial Palsy - 4: Complete Paralysis Motor Arm Right - 5: Drift Motor Arm Left - 5: No Drift Motor Leg Right - 6: Effort Against Blessing Motor Leg Left - 6: No Drift Limb Ataxia - 7: Absent Sensory - 8: Normal Best Language - 9: Severe Aphasia Dysarthia - 10: Severe Dysarthia Extinction And Inattention - 11: 0 Score: Total Score: 10 Physical Exam Const: COMMON NORMALS: patient oriented x3 and healthy appearing HENMT: COMMON NORMALS: normocephalic and atraumatic HEAD & SCALP: normocephalic and atraumatic Eye: COMMON NORMALS: Equal, round and reactive pupils present and EOMs intact bilaterally PUPIL: Yes Equal, round and reactive pupils present Neck/C-Spine: COMMON NORMALS: full ROM and supple Chest: COMMONS NORMALS: normal inspection of the chest and normal palpation of entire chest wall Resp: COMMON NORMALS: normal respiratory effort, No retractions, No use of accessory muscles and clear to auscultation bilaterally AUSCULTATION: clear to auscultation bilaterally Cardio: COMMON NORMALS: regular rate, regular rhythm and No murmurs present (Cardio) RATE: regular rate RHYTHM: regular rhythm GI: COMMON NORMALS: Normal to inspection, nondistended, normoactive bowel sounds present, Soft to palpation, non-tender and no masses PALPATION: Yes Soft to palpation Extremity: COMMON NORMALS: normal to inspection and full ROM Neuro: COMMON NORMALS: patient oriented x3 SPEECH: abnormal speech Details: slurred Psych: COMMON NORMALS: mental status grossly normal, Normal thought process present and cooperative THOUGHT PROCESS: Normal thought process present Skin: COMMON NORMALS: no rashes or lesions noted and no wounds GENERAL SKIN EXAM: no rashes or lesions noted Course Vital Signs: Vital signs: Vital Signs Temperature 98.4 F 07/17/20 09:55 Pulse Rate 76 07/17/20 09:55 Respiratory Rate 17 07/17/20 09:55 Blood Pressure 167/86 07/17/20 09:55 Pulse Oximetry 100 07/17/20 09:55 MDM - Neuro Symptoms/Deficit MDM Narrative: Medical decision making narrative: Wing presents here with symptoms consistent with a CVA. I charted his initial last known normal at 430 but after speaking to his he was able to move his arms and speak clearly up until 730 and then that is when he was unable to move his right side at all and his speech became garbled. Patient was given TPA here. Have been keeping tight control of his blood pressure with labetalol and Cardene drip. Patient CTA showed no large vessel occlusion I spoke to the hospitalist will admit to the ICU here. Lab Data: Labs: Lab Results 07/17/20 07/17/20 07/17/20 Range/Units 08:02 08:02 08:02 WBC 5.7 (4.0-10.0) 10^3/ uL RBC 5.66 H (4.1-5.3) 10^6/u L Hgb 17.9 H (11.7-16.6) g/dL Hct 54.9 H (42.0-52.0) % MCV 97.0 H (80-94) fL MCH 31.6 (28.0-34.0) pg MCHC 32.6 (30.0-36.0) g/dL RDW 14.1 (12.1-15.1) % Plt Count 219 (130-400) 10^3/c mm MPV 9.1 (7.4-10.4) fL Neut % (Auto) 68.3 % Lymph % (Auto) 20.7 % Johnson % (Auto) 8.5 % Eos % (Auto) 1.6 % Baso % (Auto) 0.5 % Neut # (Auto) 3.86 (1.8-7.7) 10^3/u L Lymph # (Auto) 1.2 (0.8-4.8) 10^3/u L Johnson # (Auto) 0.5 (0.2-0.9) 10^3/u L Eos # (Auto) 0.1 (0.0-0.8) 10^3/u L Baso # (Auto) 0.0 (0.0-0.1) 10^3/u L Nucleated RBC % (a uto) 0 % Nucleated RBCs # 0.0 /100WBC PT 13.90 (12.1-14.9) SECO NDS INR 1.04 (0.8-1.2) Sodium 138 (136-145) mmol/L Potassium 3.7 (3.5-5.1) mmol/L Chloride 100 (98-107) mmol/L Carbon Dioxide 29 (22-29) mmol/L Anion Gap 12.7 (5-19) BUN 24 H (8-23) mg/dL Creatinine 0.9 (0.7-1.2) mg/dL GFR Calculation Not Reportable Glucose 102 (65-115) mg/dL POC Glucose (70-110) mg/dL Calculated Osmolal ity 290 (285-295) mOsm/k g Calcium 8.6 (8.5-10.5) mg/dL Total Bilirubin 0.8 (0.15-1.2) mg/dL AST 21 (0-40) U/L ALT 15 (0-41) U/L Alkaline Phosphata se 74 (40-130) IU/L Total Protein 6.8 (6.6-8.7) g/dL Albumin 4.0 (3.5-5.2) g/dL Globulin 2.8 (1.3-4.6) g/dL 07/17/20 Range/Units 08:06 WBC (4.0-10.0) 10^3/ uL RBC (4.1-5.3) 10^6/u L Hgb (11.7-16.6) g/dL Hct (42.0-52.0) % MCV (80-94) fL MCH (28.0-34.0) pg MCHC (30.0-36.0) g/dL RDW (12.1-15.1) % Plt Count (130-400) 10^3/c mm MPV (7.4-10.4) fL Neut % (Auto) % Lymph % (Auto) % Johnson % (Auto) % Eos % (Auto) % Baso % (Auto) % Neut # (Auto) (1.8-7.7) 10^3/u L Lymph # (Auto) (0.8-4.8) 10^3/u L Johnson # (Auto) (0.2-0.9) 10^3/u L Eos # (Auto) (0.0-0.8) 10^3/u L Baso # (Auto) (0.0-0.1) 10^3/u L Nucleated RBC % (a uto) % Nucleated RBCs # /100WBC PT (12.1-14.9) SECO NDS INR (0.8-1.2) Sodium (136-145) mmol/L Potassium (3.5-5.1) mmol/L Chloride (98-107) mmol/L Carbon Dioxide (22-29) mmol/L Anion Gap (5-19) BUN (8-23) mg/dL Creatinine (0.7-1.2) mg/dL GFR Calculation Glucose (65-115) mg/dL POC Glucose 87 (70-110) mg/dL Calculated Osmolal ity (285-295) mOsm/k g Calcium (8.5-10.5) mg/dL Total Bilirubin (0.15-1.2) mg/dL AST (0-40) U/L ALT (0-41) U/L Alkaline Phosphata se (40-130) IU/L Total Protein (6.6-8.7) g/dL Albumin (3.5-5.2) g/dL Globulin (1.3-4.6) g/dL Imaging Data^: CT Head: Radiologist's impression: [address] [address] [address] Scan Report Signed Patient: Wing Vega Unit #: [id number] : 1935 Age/Sex: 84 / M ADM Date: 07/17/20 Loc: ER Room/Bed: Attending Dr: Ordering Provider/Ordering MD: Sofia Lara MD Date of Service: 07/17/20 Procedure(s): CT head wo con* [id number] Accession Number(s): [id number] Report Number: [id number] PROCEDURE INFORMATION: Exam: CT Head Without Contrast Exam date and time: 07/17/2020 7:50 AM Age: 84 years old Clinical indication: Altered mental status/memory loss and speech disturbance; Additional info: CVA TECHNIQUE: Imaging protocol: Computed tomography of the head without contrast. Radiation optimization: All CT scans at this facility use at least one of these dose optimization techniques: automated exposure control; mA and/or kV adjustment per patient size (includes targeted exams where dose is matched to clinical indication); or iterative reconstruction. Other technique: STROKE PROTOCOL was implemented. COMPARISON: CT head wo con* [id number] 06/16/2019 9:24 PM RADIATION DOSE METRICS: Total DLP (mGy-cm): 916.49 FINDINGS: Brain: No hemorrhage, mass effect or midline shift. No acute, major vascular distribution infarction identified. Two focal areas of encephalomalacia are again seen in the periventricular region of the right frontal lobe, consistent previous insult. There is foci of decreased attenuation in the periventricular and subcortical white matter, likely representing chronic small vessel ischemic changes. Mild cerebral volume loss is present. No intra-axial or extra-axial fluid collection seen. Cerebral ventricles: No ventriculomegaly. Bones/joints: Unremarkable. No acute fracture. Paranasal sinuses: There is partial opacification of the left maxillary sinus by a 2.2 cm mucous retention cyst or polyp. Other paranasal sinuses are well aerated. Mastoid air cells: Visualized mastoid air cells are well aerated. Soft tissues: Unremarkable. CT/CT head wo con* [id number] IMPRESSION: No acute intracranial abnormality. Other CT: Radiologist's impression: [address] [place] [address] CT Scan Report Signed Patient: Wing Vega Unit #: [id number] : 1935 Age/Sex: 84 / M ADM Date: 07/17/20 Loc: ER Room/Bed: Attending Dr: Ordering Provider/Ordering MD: Sofia Lara MD Date of Service: 07/17/20 Procedure(s): CT angio headneck* [id number] Accession Number(s): [id number] Report Number: [id number] PROCEDURE INFORMATION: Exam: CT Angiography Head With Contrast, Arteries Exam date and time: 07/17/2020 8:34 AM Age: 84 years old Clinical indication: Speech disturbance; Additional info: CVA TECHNIQUE: Imaging protocol: Computed tomography angiography of the head with intravenous contrast. 3D rendering (Not supervised by radiologist): MIP and/or 3D reconstructed images were created by the technologist. Radiation optimization: All CT scans at this facility use at least one of these dose optimization techniques: automated exposure control; mA and/or kV adjustment per patient size (includes targeted exams where dose is matched to clinical indication); or iterative reconstruction. Contrast material: OMNI 350; Contrast volume: 95 ml; Contrast route: INTRAVENOUS (IV); COMPARISON: No relevant prior studies available. RADIATION DOSE METRICS: Total DLP (mGy-cm): 916.49 FINDINGS: ANTERIOR CIRCULATION: Right internal carotid artery: In the cavernous segment of the right internal carotid artery, there is scattered areas of calcified and noncalcified plaque, resulting in focal areas of tqal-fh-itfxgjvp stenosis. No occlusion. Right middle cerebral artery: Unremarkable. No occlusion or significant stenosis. No aneurysm. Right anterior cerebral artery: Unremarkable. No occlusion or significant stenosis. No aneurysm. Left internal carotid artery: In the cavernous segment the left internal carotid artery, there is focal areas of calcified and noncalcified plaque, resulting in focal areas of mild to moderate stenosis. No occlusion. Left middle cerebral artery: Unremarkable. No occlusion or significant stenosis. No aneurysm. Left anterior cerebral artery: Unremarkable. No occlusion or significant stenosis. No aneurysm. POSTERIOR CIRCULATION: Right vertebral artery: Unremarkable. No occlusion or significant stenosis. No aneurysm. Left vertebral artery: There is non opacification of the intracranial segment of the left vertebral artery. Basilar artery: There is areas of mild stenosis in the mid and distal basilar artery. No occlusion or significant stenosis. No aneurysm. Right posterior cerebral artery: There is moderate stenosis of the proximal right posterior cerebral artery. Predominant persistent circulation through the patent right posterior communicating artery is present. There is a focal area of jmos-jb-gfpbhrdl stenosis in the proximal right posterior communicating artery. No occlusion. No aneurysm. Left posterior cerebral artery: There is moderate stenosis of the proximal left posterior cerebral artery. No occlusion. No aneurysm. Brain: No definite mass, mass effect, or midline shift. Cerebral ventricles: No ventriculomegaly. Paranasal sinuses: There is partial opacification of the left maxillary sinus by a mucous retention cyst or polyp. Other paranasal sinuses are otherwise well aerated. Bones/joints: Unremarkable. No acute fracture. Soft tissues: Unremarkable. IMPRESSION: 1. Focal areas of kjcx-sb-zcawfabd stenosis in the cavernous segment of the internal carotid artery bilaterally. 2. 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 3. Focal areas of mild stenosis in the basilar artery. 4. Moderate stenosis of the proximal posterior cerebral artery bilaterally. PROCEDURE INFORMATION: Exam: CT Angiography Neck With Contrast Exam date and time: 07/17/2020 8:34 AM Age: 84 years old Clinical indication: Speech disturbance; Additional info: CVA TECHNIQUE: Imaging protocol: Computed tomography angiography of the neck with intravenous contrast. 3D rendering (Not supervised by radiologist): MIP and/or 3D reconstructed images were created by the technologist. Radiation optimization: All CT scans at this facility use at least one of these dose optimization techniques: automated exposure control; mA and/or kV adjustment per patient size (includes targeted exams where dose is matched to clinical indication); or iterative reconstruction. Contrast material: OMNI 350; Contrast volume: 95 ml; Contrast route: INTRAVENOUS (IV); COMPARISON: No relevant prior studies available. RADIATION DOSE METRICS: Total DLP (mGy-cm): 916.49 FINDINGS: Right common carotid artery: No stenosis. No dissection or occlusion. Right internal carotid artery: No stenosis of the extracranial segment. No dissection or occlusion. Right external carotid artery: No occlusion or stenosis of the origin. Right vertebral artery: There is mild focal stenosis at the ostium of the right vertebral artery. Left common carotid artery: No stenosis. No dissection or occlusion. Left internal carotid artery: No stenosis of the extracranial segment. No dissection or occlusion. Left external carotid artery: No occlusion or stenosis of the origin. Left vertebral artery: There is qmfv-ta-ewxfaiyu stenosis in the most distal left vertebral artery. Bones/joints: No acute fracture. Degenerative changes of the cervical spine seen. Soft tissues: Normal. No significant soft tissue swelling. CT/CT angio headneck* [id number] IMPRESSION: 1. No occlusion. 2. 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 Critical Care Time Critical Care Time: Critical Care Time: Yes Total Critical Care Time: 35 Attestation: This case had a high probability of a clinically significant, sudden, or life threatening deterioration of this patient's condition which required my full and direct attention, intervention and personal management. Discharge Plan Discharge Patient Disposition: Admitted As Inpatient Admit Provider: Chavez,Tyshawn Clinical Impression: Cerebrovascular accident Condition: Stable Coding Level of Care Code ED Institutional Nutrition Consultant for Chg Fwd Exam Comprehensive
[2020-07-17] MEDS: labetalol 5 mg/mL SDV 20mL 20 MG IVP (08:05)
[2020-07-17 08:09] LABS: Basophils % 0.5 %; Eosinophils # 0.1 10^3/uL (0.0-0.8); Eosinophils % 1.6 %; Hematocrit 54.9 % (42.0-52.0); Hemoglobin 17.9 g/dL (11.7-16.6); Lymphocytes # 1.2 10^3/uL (0.8-4.8); Lymphocytes % 20.7 %; Mean Corpuscular HGB Conc 32.6 g/dL (30.0-36.0); Mean Corpuscular Hemoglobin 31.6 pg (28.0-34.0); Mean Platelet Volume 9.1 fL (7.4-10.4); Monocytes # 0.5 10^3/uL (0.2-0.9); Monocytes % 8.5 %; Neutrophils # 3.86 10^3/uL (1.8-7.7); Neutrophils % 68.3 %; Nucleated Red Blood Cells % 0 %; Platelet Count 219 10^3/cmm (130-400); Red Blood Count 5.66 10^6/uL (4.1-5.3); Red Cell Distribution Width 14.1 % (12.1-15.1); White Blood Count 5.7 10^3/uL (4.0-10.0)
--- NOTE | 2020-07-17 08:14 | CTR_ITS ---
PROCEDURE INFORMATION: Exam: CT Angiography Head With Contrast, Arteries Exam date and time: 07/17/2020 8:34 AM Age: 84 years old Clinical indication: Speech disturbance; Additional info: CVA TECHNIQUE: Imaging protocol: Computed tomography angiography of the head with intravenous contrast. 3D rendering (Not supervised by radiologist): MIP and/or 3D reconstructed images were created by the technologist. Radiation optimization: All CT scans at this facility use at least one of these dose optimization techniques: automated exposure control; mA and/or kV adjustment per patient size (includes targeted exams where dose is matched to clinical indication); or iterative reconstruction. Contrast material: OMNI 350; Contrast volume: 95 ml; Contrast route: INTRAVENOUS (IV); COMPARISON: No relevant prior studies available. RADIATION DOSE METRICS: Total DLP (mGy-cm): 916.49 FINDINGS: ANTERIOR CIRCULATION: Right internal carotid artery: In the cavernous segment of the right internal carotid artery, there is scattered areas of calcified and noncalcified plaque, resulting in focal areas of umdt-hy-feppmfuc stenosis. No occlusion. Right middle cerebral artery: Unremarkable. No occlusion or significant stenosis. No aneurysm. Right anterior cerebral artery: Unremarkable. No occlusion or significant stenosis. No aneurysm. Left internal carotid artery: In the cavernous segment the left internal carotid artery, there is focal areas of calcified and noncalcified plaque, resulting in focal areas of mild to moderate stenosis. No occlusion. Left middle cerebral artery: Unremarkable. No occlusion or significant stenosis. No aneurysm. Left anterior cerebral artery: Unremarkable. No occlusion or significant stenosis. No aneurysm. POSTERIOR CIRCULATION: Right vertebral artery: Unremarkable. No occlusion or significant stenosis. No aneurysm. Left vertebral artery: There is non opacification of the intracranial segment of the left vertebral artery. Basilar artery: There is areas of mild stenosis in the mid and distal basilar artery. No occlusion or significant stenosis. No aneurysm. Right posterior cerebral artery: There is moderate stenosis of the proximal right posterior cerebral artery. Predominant persistent circulation through the patent right posterior communicating artery is present. There is a focal area of fdbg-lp-vhfhmlrv stenosis in the proximal right posterior communicating artery. No occlusion. No aneurysm. Left posterior cerebral artery: There is moderate stenosis of the proximal left posterior cerebral artery. No occlusion. No aneurysm. Brain: No definite mass, mass effect, or midline shift. Cerebral ventricles: No ventriculomegaly. Paranasal sinuses: There is partial opacification of the left maxillary sinus by a mucous retention cyst or polyp. Other paranasal sinuses are otherwise well aerated. Bones/joints: Unremarkable. No acute fracture. Soft tissues: Unremarkable. IMPRESSION: 1. Focal areas of eycn-qv-usklfahk stenosis in the cavernous segment of the internal carotid artery bilaterally. 2. 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 3. Focal areas of mild stenosis in the basilar artery. 4. Moderate stenosis of the proximal posterior cerebral artery bilaterally. PROCEDURE INFORMATION: Exam: CT Angiography Neck With Contrast Exam date and time: 07/17/2020 8:34 AM Age: 84 years old Clinical indication: Speech disturbance; Additional info: CVA TECHNIQUE: Imaging protocol: Computed tomography angiography of the neck with intravenous contrast. 3D rendering (Not supervised by radiologist): MIP and/or 3D reconstructed images were created by the technologist. Radiation optimization: All CT scans at this facility use at least one of these dose optimization techniques: automated exposure control; mA and/or kV adjustment per patient size (includes targeted exams where dose is matched to clinical indication); or iterative reconstruction. Contrast material: OMNI 350; Contrast volume: 95 ml; Contrast route: INTRAVENOUS (IV); COMPARISON: No relevant prior studies available. RADIATION DOSE METRICS: Total DLP (mGy-cm): 916.49 FINDINGS: Right common carotid artery: No stenosis. No dissection or occlusion. Right internal carotid artery: No stenosis of the extracranial segment. No dissection or occlusion. Right external carotid artery: No occlusion or stenosis of the origin. Right vertebral artery: There is mild focal stenosis at the ostium of the right vertebral artery. Left common carotid artery: No stenosis. No dissection or occlusion. Left internal carotid artery: No stenosis of the extracranial segment. No dissection or occlusion. Left external carotid artery: No occlusion or stenosis of the origin. Left vertebral artery: There is zodr-jz-jkuedtdu stenosis in the most distal left vertebral artery. Bones/joints: No acute fracture. Degenerative changes of the cervical spine seen. Soft tissues: Normal. No significant soft tissue swelling. CT/CT angio headneck* [id number] IMPRESSION: 1. No occlusion. 2. 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 REFERENCES: NASCET CRITERIA. The degree of internal carotid artery stenosis is based on NASCET criteria. Normal is no stenosis. Mild is less than 50% stenosis. Moderate is 50-69% stenosis. Severe is 70% to 99% stenosis. Total occlusion is no detectable patent lumen. Radiation Dose CTDIVOL = (mGy): DLP = 916.49~916.49 (mGy-cm)
[2020-07-17 08:15] LABS: Glucose Point of Care 87 mg/dL (70-110)
[2020-07-17 08:25] LABS: INR 1.04 (0.8-1.2)
[2020-07-17] MEDS: iohexol 350 mg/mL 100 mL Btl IV (08:49)
[2020-07-17 08:54] LABS: Alanine Aminotransferase 15 U/L (0-41); Alkaline Phosphatase 74 IU/L (40-130); Anion Gap 12.7 (5-19); Aspartate Amino Transferase 21 U/L (0-40); Blood Urea Nitrogen 24 mg/dL (8-23); Calcium 8.6 mg/dL (8.5-10.5); Carbon Dioxide 29 mmol/L (22-29); Chloride 100 mmol/L (98-107); Globulin 2.8 g/dL (1.3-4.6); Glucose 102 mg/dL (65-115); Osmolality Calculated 290 mOsm/kg (285-295); Potassium 3.7 mmol/L (3.5-5.1); Sodium 138 mmol/L (136-145); Total Bilirubin 0.8 mg/dL (0.15-1.2); Total Protein 6.8 g/dL (6.6-8.7)
--- NOTE | 2020-07-17 08:54 | PC.NURSE ---
Verbal order for Labetol 10 mg
[2020-07-17] MEDS: labetalol 5 mg/mL SDV 20mL 10 MG IVP ×2 (08:59→09:05)
--- NOTE | 2020-07-17 09:17 | PC.NURSE ---
See Neuro Assessment Flow sheet for Vital signs
--- NOTE | 2020-07-17 09:21 | NUR.SHIFT ---
Dr Lara place nasal clamp on nose, pt took off and refused to put back on.
--- NOTE | 2020-07-17 09:22 | PC.NURSE ---
at bedside, TPA infusing on a pump. No acute distress. See Neuro Assessment Flow sheet.
[2020-07-17] MEDS: nicardipine 20 MG/200 ML PREMIX 50 MG IV (09:44)
--- NOTE | 2020-07-17 10:24 | PC.PHAR ---
PT AND PTS STATES THEY TAKE CARE OF THE PTS MEDICATIONS-PT STATES HE TAKES LASIX 40MG PO QAM PRN RX LAST FILLED ON 04/13/20 90D/S FOR 80MG DAILY-PT STATES HE ONLY TAKES KCL WHEN HE TAKES THE LASIX-PT STATES HE IS STILL TAKING DULOXETINE-PT STATES HE TAKES 40MG PO DAILY-EXT MED HISTORY SHOWS LAST FILLED ON 08/17/19 90D/S FOR 80MG DAILY-PT STATES HE JUST PUT A NEW FENT[place] PATCH ON 07/14/20-
--- NOTE | 2020-07-17 12:46 | P.HP_ITS ---
Providers/Chief Complaint Admitting Physician: Tyshawn Chavez MD Primary Care Provider: Blas Jimenez MD Chief Complaint: EXTREMITY WEAKNESS History of Present Illness Wing Vega is a 84 year old male with past medical history of hypertension, DVT not on anticoagulation, was brought in today by the EMS with chief complaint of acute onset of rt sided weakness as well as slurred speech. He woke up at 630 and was unable to get out of bed.Patient slid out of bed and states that he could not move his right side. Patient also has slurred speech.Upon arrival in the ER he was having hard time moving his rt side of te body as well as was having slurred speech and also had rt facial droop. Upon arrival in the ER stroke alert was called. His NIH stroke scale was 11. His last known well was 7:[address] head without contrast: No acute intracranial pathology. CT angio headneck No occlusion. 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 EKG: Normal sinus rhythm, first-degree AV block, right bundle branch block.LAFB. upon arrival in the ER his blood pressure was 214/93, he was started on labetalol and Cardene drip. After his blood pressure was brought down to the systolic blood pressure less than 180 and diastolic less than 110: He was administered alteplase 100 mg IV x1 dose. He was continued on nicardipine drip to maintain his blood pressure less than 180/110. Review of Systems Const: Denies: fever(s), chills, body aches, change in appetite or diaphoresis Card: Denies: dyspnea on exertion or orthopnea Resp: Denies: dyspnea, productive cough, wheezing or pain on inspiration GI: Denies: abdominal pain, nausea, vomiting, diarrhea or constipation Neuro: Denies: headache(s) or confusion Medications/Allergies Home Medications Medication Instructions Recorded Confirmed Last Taken Type duloxetine See Rx Instructions .ROUTE .COMPLEX 06/15/19 07/17/20 06/15/19 History 40 mg potassium chloride 10 mEq 10 meq PO DAILY #90 cap 07/23/19 07/17/20 Unknown Rx capsule,extended release diclofenac sodium 1 % topical gel See Rx Instructions TOPICAL QID 09/21/19 07/17/20 Unknown Rx #100 gm famotidine 20 mg tablet 20 mg PO DAILY #90 tab 11/30/19 07/17/20 Unknown Rx testosterone cypionate 200 mg/mL See Rx Instructions .ROUTE 06/07/20 07/17/20 07/16/20 Rx intramuscular kit .COMPLEX #1 each fentanyl 50 mcg/hr transdermal 1 patch TRANSDERMAL Q72H 30 Days 07/04/20 07/17/20 07/14/20 Rx patch #10 each hydrocodone 10 mg-acetaminophen 1 tab PO Q8H PRN 30 Days #90 tab 07/04/20 07/17/20 07/17/20 04:00 Rx 325 mg tablet aspirin 325 mg PO QAM 07/17/20 07/17/20 Unknown History celecoxib 200 mg PO BID 07/17/20 07/17/20 Unknown History ferrous gluconate 324 mg PO QAM 07/17/20 07/17/20 Unknown History furosemide See Rx Instructions .ROUTE .COMPLEX 07/17/20 07/17/20 Unknown History glucos sul [id number]-kxu-[id number]-C-Mn 1 cap PO PRN 07/17/20 07/17/20 Unknown History [Glucosamine Chondroitin] losartan 75 mg PO QAM 07/17/20 07/17/20 Unknown History omega 5-nvl-qss-fish oil [Fish Oil] 2 cap PO DAILY 07/17/20 07/17/20 Unknown History Allergies Allergy/AdvReac Type Severity Reaction Status Date / Time iron dextran complex Allergy ALGY-Rash Verified 07/17/20 07:47 rosuvastatin [From Crestor] Allergy JOINT PAIN Verified 07/17/20 07:47 PFSH Acute PFSH: Medical History (Updated 07/17/20 @ 09:35 by Sofia Lara MD) Arthritis Depression DVT (deep venous thrombosis) Fluid retention in legs Hypertension Hypogonadism Quadriceps tendon rupture Urinary tract infection Warfarin-induced coagulopathy Surgical History History of arthroplasty of right knee Family History Father Cancer Lung cancer Social History Smoking and tobacco status: former smoker Alcohol intake: current Alcohol intake frequency: few times a month History of recent travel: No Vitals/I&O/Wt Last Vital Signs Temp 98.4 F 07/17/20 09:55 Pulse 68 07/17/20 12:30 Resp 16 07/17/20 12:30 BP 121/58 07/17/20 12:30 Pulse Ox 90 07/17/20 12:30 07/16/20 07/17/20 07/17/20 22:59 06:59 14:59 Intake Total 100 / 100 Output Total 400 / 400 Balance -300 / -300 Weight last 48 hrs Weight 106.594 kg Physical Exam Const: COMMON NORMALS: patient oriented x3 HENMT: COMMON NORMALS: normocephalic, atraumatic, hearing grossly normal bilaterally and external ears normal HEAD & SCALP: normocephalic and atraumatic EXTERNAL EAR: Yes external ears normal Eye: COMMON NORMALS: no scleral icterus GENERAL EYE: appearance normal, both eyes and all related structures Chest: COMMONS NORMALS: normal inspection of the chest and normal palpation of entire chest wall CHEST: Yes Symmetrical chest wall rise Resp: COMMON NORMALS: normal respiratory effort, No retractions, No use of accessory muscles and clear to auscultation bilaterally EFFORT & INSPECTION: Yes symmetric chest movement AUSCULTATION: clear to auscultation bilaterally Cardio: COMMON NORMALS: regular rate, regular rhythm, S1 normal heart sound present, S2 normal heart sound present, No gallops present (Cardio), No murmurs present (Cardio), No rub (Cardio) and Peripheral pulses 2+ throughout RATE: regular rate RHYTHM: regular rhythm HEART SOUNDS: S1 normal heart sound present and S2 normal heart sound present PERIPHERAL PULSES: Peripheral pulses 2+ throughout GI: COMMON NORMALS: Normal to inspection, nondistended, normoactive bowel sounds present, Soft to palpation, non-tender, No hepatosplenomegaly present and no masses AUSCULTATION: Yes normoactive bowel sounds PALPATION: Yes Soft to palpation and Yes No hepatosplenomegaly present RECTAL EXAM: Yes deferred Extremity: COMMON NORMALS: no clubbing, cyanosis or edema and no pedal edema Neuro: COMMON NORMALS: patient oriented x3, CN's II-XII intact bilaterally, moves all extremities, no focal motor deficits and no sensory deficits noted SENSORIUM/ORIENTATION: Yes alert, Yes oriented to person, Yes oriented to place and Yes oriented to time MENINGEAL SIGNS: Yes no meningeal signs COORDINATION/BALANCE: swgxzj-xb-cbrq test normal and gtdk-fb-eszr test normal MOTOR EXAM: 5/5 motor strength present throughout, Pronator motor function not present, no tremor noted, Motor fasciculations not present, Normal motor muscle tone present throughout and Motor abnormalities not present Data : 07/17/20 08:02 07/17/20 08:02 A&P Assessment and plan (1) Cerebrovascular accident: Ac CVA:Currently has no residual rt sided weakness or slurred speech or difficulty swallowing. Status post TPA CT head without contrast: No acute intracranial pathology. CT angio headneck No occlusion. 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 EKG: Normal sinus rhythm, first-degree AV block, right bundle branch block.LAFB. Repeat CT head without contrast in the a.m. 2D Echo Telemetry We will initiate aspirin 81 MG PO Daily after 24 hours. We will initiate Plavix 75 mg PO Daily Lipitor 40 mg p.o. daily. Amlodipine 5 mg po daily Continue to maintain Goal B/P (< 180/110 for 1st 24 hrs Post TPA ) Status: Acute (2) Chronic pain: Status: Acute (3) History of pulmonary embolism: Not on anticoagulation Status: Acute (4) Hypertension: Status: Acute Attestations 2 Medical Necessity Statement*: Patient needs to be in hospital for management of acute CVA. S/p TPA. Tight blood pressure control. Anticipated length of stay, less than 2 midnight. Coding Level of Care Code Acute Classifying Machine Operator for Mary Jane Martino Diagnoses Cerebrovascular accident I63.9 Chronic pain G89.29 History of pulmonary embolism Z86.711 Hypertension I10
[2020-07-17] MEDS: atorvastatin 40 mg Tablet PO (20:07)
[2020-07-17] MEDS: amlodipine 5 mg Tablet PO (21:04)
[2020-07-18] VITALS (198 sets, daily range): BP systolic 133–207; BP diastolic 67–128; PULSE 62–119; RESP 2–31; TEMP 36–37.3; O2SAT 68–98
--- NOTE | 2020-07-18 06:00 | CT_ITS ---
WS: [id number] CT HEAD TECHNIQUE: Noncontrast CT of the head obtained from the skullbase to the vertex. CLINICAL INFORMATION: Ac CVA S/P Tpa COMPARISON: July 17, 2020 DLP: 901.[address] scans at [facility] use at least one of these dose optimization techniques: automat ed exposure control; mA and/or kV adjustment per patient size (includes targeted exams where dose is matched to clinical indication); or iterative reconstruction. FINDINGS: No evidence of intracranial hemorrhage or mass effect. Ventricular system and basal cisterns are vigil nt. Moderate small vessel changes with moderate parenchymal volume loss. No extra-axial fluid collect ions. No evidence of mass or mass effect. Normal romero-white differentiation. 2.0 cm retention cyst left maxillary sinus. CT/CT head wo con* [id number] IMPRESSION: 1. No evidence of intracranial hemorrhage or mass effect. 2. Moderate small vessel changes. Moderate parenchymal volume loss. 3. No acute intracranial findings.
[2020-07-18 06:15] LABS: Basophils % 0.4 %; Eosinophils # 0.1 10^3/uL (0.0-0.8); Eosinophils % 0.7 %; Hematocrit 52.9 % (42.0-52.0); Hemoglobin 17.2 g/dL (11.7-16.6); Lymphocytes # 0.9 10^3/uL (0.8-4.8); Lymphocytes % 12.1 %; Mean Corpuscular HGB Conc 32.5 g/dL (30.0-36.0); Mean Corpuscular Hemoglobin 31.3 pg (28.0-34.0); Mean Corpuscular Volume 96.2 fL (80-94); Mean Platelet Volume 9.5 fL (7.4-10.4); Monocytes # 0.6 10^3/uL (0.2-0.9); Monocytes % 8.2 %; Neutrophils # 5.57 10^3/uL (1.8-7.7); Neutrophils % 78.5 %; Nucleated Red Blood Cells % 0 %; Platelet Count 195 10^3/cmm (130-400); Red Cell Distribution Width 13.9 % (12.1-15.1); White Blood Count 7.1 10^3/uL (4.0-10.0)
[2020-07-18 06:56] LABS: Alanine Aminotransferase 14 U/L (0-41); Albumin Level 3.9 g/dL (3.5-5.2); Alkaline Phosphatase 64 IU/L (40-130); Aspartate Amino Transferase 27 U/L (0-40); Blood Urea Nitrogen 18 mg/dL (8-23); Carbon Dioxide 24 mmol/L (22-29); Chloride 97 mmol/L (98-107); Cholesterol 151 mg/dL (0-200); Globulin 2.8 g/dL (1.3-4.6); Glucose 122 mg/dL (65-115); HDL Cholesterol 56 mg/dL (60-100); LDL Cholesterol Calculated 81 mg/dL (50-129); LDL HDL Ratio 1.45 RATIO (0.00-3.22); Osmolality Calculated 267 mOsm/kg (285-295); Sodium 127 mmol/L (136-145); Thyroid Stimulating Hormone 3.54 uIU/mL (0.27-4.20); Total Bilirubin 0.9 mg/dL (0.15-1.2); Total Protein 6.7 g/dL (6.6-8.7); Triglycerides 68 mg/dL (0-150)
[2020-07-18] MEDS: amlodipine 5 mg Tablet PO (07:25)
[2020-07-18 07:30] LABS: Anion Gap 10.1 (5-19); Potassium 4.1 mmol/L (3.5-5.1)
--- NOTE | 2020-07-18 09:33 | PC.NURSE ---
AM dose of amlodipine was given early due to elevated BP. Dr johnson
--- NOTE | 2020-07-18 09:42 | PC.CHAP ---
Pastoral Care Encounter/Spiritual Assessment Type of Contact [] Declined electoral officer visit [] Patient/Family/Request visit [] Outpatient visit [] Follow-up visit [] Physician referral [] Code/Alert [x] Routine visit [] Staff referral [] Actively dying [] Patient sleeping [] Family support [] [] Out of room [] Palliative care [] [x] Receiving care in room [] Pre-surgical visit [] Trauma [] Long length of stay [x] ICU visit [] Other: Relational/Emotional Strength [] Patient feels connected with others/family/visitors/staff [] Distress [] Loneliness/isolation [] Abandonment Spirituality of Patient [] Person of Jessy [] Attends Druze of their Jessy [] Believes in Prayer [] Reads Bible or Zoroastrian materials [] There are Spiritual issues to be addressed Associate Chief Nurse Interventions [x] Prayer [] Active listening [] Non-anxious presence [] Spiritual/emotional support [] Crisis/trauma care [] Spiritual counseling [] Bereavement support [] Provided bereavement packet [] Provided Bible/devotional materials [] Provided toy/stuffed animal, coloring book to patient or family member [] Provided Communion [] Anointing/[place] [] Salvation [x] Completed spiritual assessment [] Other: Impact on Illness or Injury [] Angry [] Fearful [] Anxious [] Often cries [] Exhaustion [] Unable to work [] Unable to attend amish [] Unable to walk/stand [] Unable to read [] Unable to drive [] Unable to eat/drink [] Unable to sleep [] Unable to be with family [] Patient intubated [] Other: Summary Time spent with patient
--- NOTE | 2020-07-18 11:01 | PC.NURSE ---
Patient was taken to CT at 1030. Tolerated well
[2020-07-18] MEDS: fentaNYL 50 mcg Patch 1 PATCH TRANSDERMA (11:38)
--- NOTE | 2020-07-18 12:44 | USCV_ITS ---
Wing Vega Age: 84 Gender: M : 1935 Exam Date: 07/18/2020 06:10 Ordering Phys: Tyshawn Chavez MD Technologist: David Oquendo [place] [facility] [place]: POST STROKE BP: 204 / 115 HR: 73 Rhythm: Sinus Technical Quality: POOR MEASUREMENTS (Male / Female) Normal Values 2D ECHO LV Diastolic Diameter PLAX 5.1 cm 4.2 - 5.9 / 3.9 - 5.3 cm LV Systolic Diameter PLAX 3.3 cm IVS Diastolic Thickness 1.0 cm 0.6 - 1.0 / 0.6 - 0.9 cm IVS Systolic Thickness 1.2 cm LVPW Diastolic Thickness 1.0 cm 0.6 - 1.0 / 0.6 - 0.9 cm LVPW Systolic Thickness 1.3 cm LVOT Diameter 2.1 cm LV Ejection Fraction 2D Teich 63.1 % LV Ejection Fraction MOD 2C 66.5 % LV Ejection Fraction 2C AL 66.7 % LA Diameter 3.9 cm LA Width 3.2 cm LA Height 5.2 cm RA Width 4.8 cm RA Height 5.3 cm M-MODE LV Diastolic Diameter MM 4.9 cm 4.2 - 5.9 / 3.9 - 5.3 cm LV Systolic Diameter MM 2.5 cm LV Ejection Fraction MM Teich 80.7 % IVS Diastolic Thickness MM 0.9 cm 0.6 - 1.0 / 0.6 - 0.9 cm IVS Systolic Thickness MM 1.7 cm LVPW Diastolic Thickness MM 1.3 cm 0.6 - 1.0 / 0.6 - 0.9 cm LVPW Systolic Thickness MM 1.8 cm RV Diastolic Diameter MM 2.1 cm Aortic Annulus Diameter 3.6 cm LA Ao Ratio MM 1.1 MV E Point Septal Separation 1.0 cm DOPPLER AV Peak Velocity 202.0 cm/s LVOT Peak Velocity 100.0 cm/s AV Area Cont Eq vti 1.6 cm squared AV Area Cont Eq pk 1.7 cm squared MV Area PHT 5.0 cm squared Mitral E to A Ratio 0.6 MV E' Velocity 32.0 cm/s Mitral E to MV E' Ratio 5.3 Mitral E to LV E' Lateral Ratio 5.1 Mitral E to LV E' Septal Ratio 5.5 TR Peak Velocity 209.0 cm/s TR Peak Gradient 17.5 mmHg TV Peak E Velocity 92.0 cm/s Right Atrial Pressure 3.0 mmHg Pulmonary Artery Systolic Pressu 20.5 mmHg PV Peak Velocity 90.0 cm/s FINDINGS Left Ventricle Normal LV size ejection fraction of 66%. Mild concentric left ventricular hypertrophy. No significant wall motion normalities.Grade I/IV diastolic dysfunction (abnormal relaxation filling pattern), normal to mildly elevated filling pressures. Right Ventricle The right ventricle is normal in size and function. Right Atrium The right atrium is normal in size. Left Atrium Interatrial septum appears to be bulging to the left side Mitral Valve Minimally thickened mitral valve Aortic Valve Thickened aortic valve. Bncr-ww-garttbml aortic valve regurgitation. Tricuspid Valve No gross abnormalities noted.trace tricuspid valve regurgitation. Pulmonic Valve No gross abnormalities noted Pericardium No pericardial effusion. Aorta Normal ascending aorta dimension. CONCLUSIONS Normal LV size ejection fraction of 66%. Mild concentric left ventricular hypertrophy. No significant wall motion normalities.Grade I/IV diastolic dysfunction (abnormal relaxation filling pattern), normal to mildly elevated filling pressures. Thickened aortic valve. Njbd-kt-opsswauh aortic valve regurgitation. Minimally thickened mitral valve. Interatrial septum appears to be bulging to the left side. Trace tricuspid valve regurgitation. There is no pericardial effusion. There are no intracardiac masses. No previous study is available for comparison. Dr Rigo Deng MD [facility] (Electronically Signed) Final Date: 18 July 2020 08:56 S
--- NOTE | 2020-07-18 15:18 | USCV_ITS ---
SilviaWing coello Age: 84 Gender: M : 1935 Exam Date: 07/18/2020 16:16 Ordering Phys: Giselle Arrington MD Technologist: Michelle Diaz Exam Location: [facility] – [place] Indication: SWELLING HISTORY: Lower extremity swelling. PROCEDURES: Venous duplex imaging was performed in bilateral lower extremities. The following venous structures were evaluated: common femoral vein, profunda vein, proximal portion of the greater saphenous vein, superficial femoral vein, and the popliteal vein. In addition, the posterior tibial and peroneal trunk were evaluated. FINDINGS: There appears to be a partial thrombus/residual thrombus noted in the rt peroneal. All other veins imaged appear free of thrombus at this time. CONCLUSIONS Non occlusive thrombus right peroneal vein. Right and Left LE vessels otherwise patent Hua Zaldivar MD (Electronically Signed) Final Date: 18 July 2020 17:28 S
--- NOTE | 2020-07-18 15:25 | P.PN_ITS ---
Subjective Subjective: Interval history: Labs, H inpatient chart reviewed. 24-hour post TPA CT head without any intracranial abnormalities. Patient continues to have no current neurological deficits at this present time. Complains of bilateral lower extremity pain, heaviness, noted swelling right greater than left. Has a history of DVT and PE. Started on amlodipine this morning, blood pressure ranging between 1 80-200 systolic. Nicardipine drip was titrated off this morning Medications: Reviewed: Yes Vitals/I&O/Wt Last Vital Signs Temp 96.8 F L 07/18/20 09:25 Pulse 78 07/18/20 14:40 Resp 19 H 07/18/20 14:40 BP 198/88 07/18/20 14:40 Pulse Ox 96 07/18/20 14:40 07/18/20 07/18/20 07/18/20 06:59 14:59 22:59 Intake Total 480 / 1243.334 360 / 360 Output Total 775 / 2350 Balance -295 / -1106.666 360 / 360 Weight last 48 hrs Weight 106.141 kg Weight 106.594 kg Physical Exam Narrative: EXAM NARRATIVE: GEN: Awake, alert and oriented, no acute distress CVS: S1S2 N RS: CTA B/L Abd: Soft, nt/nd , bs+ DELIVERY DRIVER/SUPERVISOR: no focal neuro deficits Data : 07/18/20 06:05 07/18/20 06:05 A&P Assessment and plan (1) Cerebrovascular accident: Acute CVA : NIH stroke scale 11 upon presentation Telestroke service was called at [facility] post TPA around 8 AM on July 17, [address] head without contrast: No acute intracranial pathology. CT angio headneck No occlusion. Bwvz-zj-mnbcjkvm stenosis of the most distal cervical vertebral artery on the left. 24-hour post TPA CT head without any acute intracranial abnormalities, no evidence of bleeding EKG: Normal sinus rhythm, first-degree AV block, right bundle branch block.no arrhythmias noted 2D Echo with LVEF of 66%, mild concentric LVH, grade 1 diastolic dysfunction, normal to mildly elevated filling pressures, thickened aortic valve. Telemetry without acute events. Start aspirin 81 MG PO Daily , Plavix 75 mg PO Daily. Patient was taking aspirin 325 mg p.o. daily prior to coming in. Patient was previously also on Coumadin until July 2019 when he developed acute hematoma in his hip and this needed to be discontinued. I have spoken to his primary care physician Dr. Jimenez and it appears that indication was DVT/PE, there was not any plan for indefinite or lifelong anticoagulation at the time. Patient does complain of leg heaviness several days prior to leading up to the stroke, there is bilateral lower extremity swelling noted, right is worse than the left. There are changes of stasis dermatitis noted bilaterally. Patient reports he is known to have venous insufficiency and appears that he has been recommended to undergo venous stripping, however he is unwilling to proceed with that. Given past history of DVT/PE, being off anticoagulation and lower extremity pain and heaviness, will order lower extremity duplex to evaluate for DVT. Continue Lipitor 40 mg p.o. daily. Per telestroke recommendations, blood pressure goal is to keep systolic less than 185. He has received amlodipine amlodipine 5 mg this morning with SBP ranging between 1 80-200. We will resume his home medication of losartan, however at a lower dose of 25 mg instead of 75 mg p.o. daily. Status: Acute (2) Chronic pain: Status: Acute (3) History of pulmonary embolism: Not on anticoagulation As a result of DVT, discussed with PCP that this was not intending to be a lifelong anticoagulation, however will order lower extremity Duplex as above Status: Acute (4) Hypertension: As above, SBP goal <185/110 Status: Acute Attestations Medical Necessity Statement*: Transfer to med/surg, however continued admission for management of HTN, titrated off micardipine infusion this morning, needs optimization of oral regimen given SBP ranging up to 200 currently. Critical Care Time: The high probability of a clinically significant, sudden or life threatening deterioration of the patient's [nervous, cardiovascular] system(s) required my full and direct attention, intervention and personal management. The critical care time is as shown. This time is in addition to time spent performing any reported procedures but includes the following: [x] Data and vital sign review and interpretation [x] Patient assessment, examination and intervention [x] Documentation [x] Medication orders and management Critical Care Time (min): 45 Coding Level of Care Code Acute Financial Professional for Mary Jane Fwd Diagnoses Cerebrovascular accident I63.9 Chronic pain G89.29 History of pulmonary embolism Z86.711 Hypertension I10
[2020-07-18] MEDS: losartan 50 mg Tablet 25 MG PO (15:41)
--- NOTE | 2020-07-18 15:58 | PC.OT ---
OT screen completed. Pt able to independently doff/don socks, transfer to commode with walker with mod I, ambulated around nurses' station with walker, no loss of balance. No further OT recommended at this time. Pt reported he feels he can handle his ADLs at home as before the CVA (used walker at baseline) and home set up is adequate per his report.
--- NOTE | 2020-07-18 18:13 | PC.NURSE ---
Patient was transferred to [facility] at 1745. All belongings in closet. Tolerated well
[2020-07-18] MEDS: atorvastatin 40 mg Tablet PO (21:36)
[2020-07-19] VITALS (8 sets, daily range): BP systolic 118–177; BP diastolic 71–91; PULSE 62–81; RESP 16–18; TEMP 36.2–36.6; O2SAT 95–98
[2020-07-19 05:57] LABS: Basophils % 0.3 %; Eosinophils # 0.1 10^3/uL (0.0-0.8); Eosinophils % 1.3 %; Hematocrit 55.4 % (42.0-52.0); Hemoglobin 17.6 g/dL (11.7-16.6); Lymphocytes # 1.2 10^3/uL (0.8-4.8); Lymphocytes % 16.2 %; Mean Corpuscular HGB Conc 31.8 g/dL (30.0-36.0); Mean Corpuscular Hemoglobin 31.5 pg (28.0-34.0); Mean Corpuscular Volume 99.1 fL (80-94); Mean Platelet Volume 9.4 fL (7.4-10.4); Monocytes # 0.7 10^3/uL (0.2-0.9); Monocytes % 9.4 %; Neutrophils # 5.45 10^3/uL (1.8-7.7); Neutrophils % 72.4 %; Nucleated Red Blood Cells % 0 %; Platelet Count 205 10^3/cmm (130-400); Red Blood Count 5.59 10^6/uL (4.1-5.3); Red Cell Distribution Width 14.1 % (12.1-15.1); White Blood Count 7.5 10^3/uL (4.0-10.0)
[2020-07-19 06:14] LABS: Alanine Aminotransferase 16 U/L (0-41); Albumin Level 3.7 g/dL (3.5-5.2); Alkaline Phosphatase 65 IU/L (40-130); Aspartate Amino Transferase 29 U/L (0-40); Blood Urea Nitrogen 16 mg/dL (8-23); Calcium 8.6 mg/dL (8.5-10.5); Carbon Dioxide 26 mmol/L (22-29); Chloride 100 mmol/L (98-107); Globulin 2.9 g/dL (1.3-4.6); Glucose 98 mg/dL (65-115); Osmolality Calculated 279 mOsm/kg (285-295); Sodium 134 mmol/L (136-145); Total Bilirubin 0.9 mg/dL (0.15-1.2); Total Protein 6.6 g/dL (6.6-8.7)
[2020-07-19 06:23] LABS: Anion Gap 12.2 (5-19); Potassium 4.2 mmol/L (3.5-5.1)
[2020-07-19] MEDS: FUROsemide 40 mg Tablet PO (08:40)
[2020-07-19] MEDS: aspirin 81 mg EC Tablet PO (08:40)
[2020-07-19] MEDS: duloxetine 20 mg Capsule 40 MG PO (08:40)
[2020-07-19] MEDS: amlodipine 5 mg Tablet PO (08:41)
[2020-07-19] MEDS: potassium chloride ER 10 mEq Tablet PO (08:41)
[2020-07-19] MEDS: famotidine 20 mg Tablet PO (08:41)
[2020-07-19] MEDS: losartan 50 mg Tablet 25 MG PO (08:41)
[2020-07-19] MEDS: clopidogrel 75 mg Tablet PO (08:42)
--- NOTE | 2020-07-19 12:37 | P.DS_ITS ---
Discharge Providers Date of Admission: 07/17/20 09:26 Date of Discharge: July 19, 2020 Attending Provider at Admission: Tyshawn Chavez MD Attending Provider at Discharge: Giselle Arrington MD Primary Care Provider: Blas Jimenez MD Diagnoses at Discharge Discharge Diagnosis (1) Cerebrovascular accident: Status: Acute (2) Chronic pain: Status: Acute (3) History of pulmonary embolism: Status: Acute (4) Hypertension: Status: Acute (5) DVT (deep venous thrombosis): Status: Acute Reason for Visit Reason for Visit: EXTREMITY WEAKNESS Hospital Course Hospital Course Wing Vega is a 84 year old male with past medical history of hypertension, DVT not on anticoagulation, was brought in today by the EMS with chief complaint of acute onset of rt sided weakness as well as slurred speech. Hospital course as below: (1) Cerebrovascular accident: NIH stroke scale 11 upon presentation Telestroke service was called at [facility] post TPA around 8 AM on July 17, [address] head without contrast: No acute intracranial pathology. CT angio headneck No occlusion. [id number] stenosis of the most distal cervical vertebral artery on the left. 24-hour post TPA CT head without any acute intracranial abnormalities, no evidence of bleeding EKG: Normal sinus rhythm, first-degree AV block, right bundle branch block.no arrhythmias noted 2D Echo with LVEF of 66%, mild concentric LVH, grade 1 diastolic dysfunction, normal to mildly elevated filling pressures, thickened aortic valve. Telemetry without acute events. Started aspirin 81 MG PO Daily , Plavix 75 mg PO Daily. Continue Lipitor 40 mg p.o. daily. Per telestroke recommendations, blood pressure goal is to keep systolic less than 185. SBP currently ranging between 150-170 systolic, improved over admission when he was on nicardipine drip (2) Chronic pain: (3) History of pulmonary embolism: As a result of proximal PE, unclear if provoked vs unprovoked. (4) Hypertension: As above, SBP goal <185/110 (5) Non occlusive peroneal vein DVT. At this time, given non occlusive distal DVT, does not meet crieria for IVC filter. Discused with patient regarding anticoagulation, he has a past h/o recurrent falls with resulting hematomas eventually resulting in Hb drop to 6, which led to coumadin being discontinued. Given that he is still a high fall risk, risk of a/c outweighs potential risk of DVT progression. 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 Discharge Data Data Completed and Pending: Completed Studies During Hospitalization Category Date Time Status CT angio headneck * [id number]/37640 Urge nt Cat Scan 07/17/20 08:[address] head wo con* 7 0450 Routine Cat Scan 07/18/20 06:[address] head wo con* 7 0450 Urgent Cat Scan 07/17/20 07:49 Completed XR chest 1V sushil ble [id number] Urgent Exams 07/17/20 07:49 Completed CV echo complete* [id number] Routine Ultrasound 07/18/20 12:44 [place] [id number] Routin e Ultrasound 07/18/20 15:18 Completed Pending at discharge Category Date Time Status Complete Blood Co unt w/Auto AM LABS Lab 07/20/20 04:00 Ordered Comprehensive Met abolic Panel AM LA BS Lab 07/20/20 04:00 Ordered Labs from last 24 hours 07/19/20 07/19/20 05:30 05:30 WBC 7.5 RBC 5.59 H Hgb 17.6 H Hct 55.4 H MCV 99.1 H MCH 31.5 MCHC 31.8 RDW 14.1 Plt Count 205 MPV 9.4 Neut % (Auto) 72.4 Lymph % (Auto) 16.2 Long % (Auto) 9.4 Eos % (Auto) 1.3 Baso % (Auto) 0.3 Neut # (Auto) 5.45 Lymph # (Auto) 1.2 Long # (Auto) 0.7 Eos # (Auto) 0.1 Baso # (Auto) 0.0 Nucleated RBC % (a uto) 0 Nucleated RBCs # 0.0 Sodium 134 L Potassium 4.2 Chloride 100 Carbon Dioxide 26 Anion Gap 12.2 BUN 16 Creatinine 0.8 GFR Calculation Not Reportable Glucose 98 Calculated Osmolal ity 279 L Calcium 8.6 Total Bilirubin 0.9 AST 29 ALT 16 Alkaline Phosphata se 65 Total Protein 6.6 Albumin 3.7 Globulin 2.9 Vitals: Last Vital Signs Temp 97.8 F 07/19/20 11:49 Pulse 76 07/19/20 11:49 Resp 16 03/09/21 11:49 BP 118/71 07/19/20 11:49 Pulse Ox 96 07/19/20 11:49 Discharge Plan Discharge Patient Disposition: Home Condition: Stable Prescriptions: New aspirin 81 mg Tablet,Delayed Release (Dr/Ec) 81 mg PO DAILY 30 Days Qty: 30 RF: 0 atorvastatin 40 mg Tablet 40 mg PO BEDTIME 30 Days Qty: 30 RF: 0 clopidogrel 75 mg Tablet 75 mg PO DAILY 30 Days Qty: 30 RF: 0 Continued potassium chloride 10 mEq capsule, extended release 10 meq PO DAILY Qty: 90 RF: 3 testosterone cypionate 200 mg/mL kit See Rx Instructions .ROUTE .COMPLEX Qty: 1 RF: 5 famotidine [Pepcid] 20 mg tablet 20 mg PO DAILY Qty: 90 RF: 3 fentanyl 50 mcg/hr patch 72 hour 1 patch transdermal Q72H 30 Days Qty: 10 RF: 0 hydrocodone-acetaminophen 10-325 mg tablet 1 tab PO Q8H PRN (Reason: pain) 30 Days Qty: 90 RF: 0 diclofenac sodium 1 % gel See Rx Instructions topical QID Qty: 100 RF: 8 duloxetine 40 mg Capsule, Delayed Rel Sprinkle See Rx Instructions .ROUTE .COMPLEX RF: 0 Fish Oil 1,200 (144-216) mg Capsule 2 cap PO DAILY RF: 0 Glucosamine Chondroitin 550-30-1 mg Capsule 1 cap PO PRN RF: 0 furosemide 80 mg tablet See Rx Instructions .ROUTE .COMPLEX RF: 0 ferrous gluconate 324 mg (37.5 mg iron) tablet 324 mg PO QAM RF: 0 Changed losartan 50 mg tablet 50 mg PO QAM Qty: 0 RF: 0 Discontinued celecoxib 200 mg capsule See Rx Instructions .ROUTE .COMPLEX Qty: 60 RF: 0 aspirin 325 mg tablet 325 mg PO QAM RF: 0 Discharge Orders: Discharge Order (Routine); Ordered 07/19/20 Ordered By: Giselle Arrington Referrals: Blas Jimenez MD [Primary Care Provider] - 07/27/20 11:15 am Discharge Diet: Usual diet Discharge Activity: Resume usual activity Patient Instructions: Aspirin (By mouth), Atorvastatin (By mouth), Clopidogrel (By mouth), Deep Venous Thrombosis (DC), Self Care Measures After a Stroke (DC), Stroke Stoplight Discharge Attestations Time Spent in Discharge Care*: greater than 30 min Specific Discharge Activities: educating patient, educating and/or supporting family/caregiver and evaluating patient/reviewing data Status at Discharge: Cognitive status at discharge: cognitively intact , Behavioral status at discharge: cooperative , Quality Metrics Clinical Quality Measures During this hospital stay, did patient experience: Stroke Contraindication to Antithrombotic: Antithrombotic prescribed Contraindication to Anticoagulation: Other Contraindication to Statin: Statin prescribed Contraindication to antithrombotic day 2: Antithrombotic given Contraindication to tPA: tPA given Coding Level of Care Code Acute Tapping Machine Operator for Mary Jane Martino Diagnoses Cerebrovascular accident I63.9 Chronic pain G89.29 History of pulmonary embolism Z86.711 Hypertension I10 DVT (deep venous thrombosis) I82.409
--- NOTE | 2020-07-19 15:23 | CTR_ITS ---
PROCEDURE INFORMATION: Exam: CT Head Without Contrast Exam date and time: 07/19/2020 3:43 PM Age: 84 years old Clinical indication: Weakness, extremity; Right; Additional info: Right leg numbness TECHNIQUE: Imaging protocol: Computed tomography of the head without contrast. Radiation optimization: All CT scans at this facility use at least one of these dose optimization techniques: automated exposure control; mA and/or kV adjustment per patient size (includes targeted exams where dose is matched to clinical indication); or iterative reconstruction. COMPARISON: CT head wo con* [id number] 07/18/2020 11:02 AM RADIATION DOSE METRICS: Total DLP (mGy-cm): 858.23 FINDINGS: Brain: Mild parenchymal volume loss noted. There is decreased attenuation of the periventricular white matter, consistent with mild chronic microangiopathic white matter disease. Small focal areas of encephalomalacia noted in the deep right frontal white matter. No intracranial hemorrhage noted. No parenchymal edema identified. Cerebral ventricles: The ventricles are proportional to the sulci. No hydrocephalus is noted. Bones/joints: No fracture or other acute osseous abnormality. Paranasal sinuses: 2.0 cm retention cyst left maxillary sinus. No air-fluid levels in the paranasal sinuses. Mastoid air cells: The mastoid air cells are clear bilaterally. Soft tissues: The soft tissues appear unremarkable. CT/CT head wo con* [id number] IMPRESSION: 1. Chronic intracranial changes are present. 2. No acute intracranial abnormality is noted. 3. There is no interval change from the prior examination. Radiation Dose CTDIVOL = (mGy): DLP = 858.23 (mGy-cm)
--- NOTE | 2020-07-19 16:33 | PC.NURSE ---
Patient off the unit to CT at this time.
[2020-07-19] MEDS: atorvastatin 40 mg Tablet PO (21:29)
[2020-07-19] MEDS: sodium chloride 0.9% 1,000 ML 75 ML IV (21:30)
[2020-07-20] VITALS (11 sets, daily range): BP systolic 118–178; BP diastolic 70–86; PULSE 65–81; RESP 17–18; TEMP 36.5–37.2; O2SAT 96–97
[2020-07-20 05:03] LABS: Basophils % 0.4 %; Eosinophils # 0.1 10^3/uL (0.0-0.8); Eosinophils % 1.3 %; Hematocrit 57.1 % (42.0-52.0); Hemoglobin 17.7 g/dL (11.7-16.6); Lymphocytes # 1.4 10^3/uL (0.8-4.8); Lymphocytes % 15.5 %; Mean Corpuscular Hemoglobin 31.7 pg (28.0-34.0); Mean Corpuscular Volume 102.3 fL (80-94); Mean Platelet Volume 9.4 fL (7.4-10.4); Monocytes # 0.9 10^3/uL (0.2-0.9); Monocytes % 9.1 %; Neutrophils # 6.83 10^3/uL (1.8-7.7); Neutrophils % 73.4 %; Nucleated Red Blood Cells % 0 %; Platelet Count 199 10^3/cmm (130-400); Red Blood Count 5.58 10^6/uL (4.1-5.3); White Blood Count 9.3 10^3/uL (4.0-10.0)
--- NOTE | 2020-07-20 07:00 | USCV_ITS ---
Wing Vega Age: 84 Gender: M : 1935 Exam Date: 07/20/2020 10:31 Ordering Phys: Giselle Arrington MD Technologist: Kate Jamison Exam Location: [facility] – [place] Indication: EVAL FOR PFO BP: / HR: 68 Rhythm: Sinus Technical Quality: Adequate MEASUREMENTS (Male / Female) Normal Values 2D ECHO LV Ejection Fraction MOD 2C 50.2 % LV Ejection Fraction 2C AL 50.5 % LA Width 3.9 cm LA Height 4.3 cm RA Width 3.8 cm RA Height 5.7 cm FINDINGS Left Ventricle Right Ventricle Right Atrium Left Atrium Mitral Valve Aortic Valve Tricuspid Valve Pulmonic Valve Pericardium Aorta CONCLUSIONS Limited echocardiogram performed to assess presence of PFO This is a limited quality echocardiogram. Grossly bubbles are not seen to cross early. But because of quality of echocardiogram can not rule out intracardiac shunt Jun Cassidy MD (Electronically Signed) Final Date: 20 July 2020 11:36 S
[2020-07-20 07:06] LABS: Alanine Aminotransferase 14 U/L (0-41); Albumin Level 3.5 g/dL (3.5-5.2); Alkaline Phosphatase 64 IU/L (40-130); Blood Urea Nitrogen 23 mg/dL (8-23); Calcium 8.7 mg/dL (8.5-10.5); Carbon Dioxide 20 mmol/L (22-29); Glucose 86 mg/dL (65-115); Total Bilirubin 0.8 mg/dL (0.15-1.2); Total Protein 6.5 g/dL (6.6-8.7)
[2020-07-20 07:37] LABS: Anion Gap 19.4 (5-19); Chloride 99 mmol/L (98-107); Osmolality Calculated 281 mOsm/kg (285-295); Potassium 4.4 mmol/L (3.5-5.1); Sodium 134 mmol/L (136-145)
[2020-07-20 07:38] LABS: Aspartate Amino Transferase 27 U/L (0-40)
[2020-07-20] MEDS: potassium chloride ER 10 mEq Tablet PO (08:18)
[2020-07-20] MEDS: clopidogrel 75 mg Tablet PO (08:18)
[2020-07-20] MEDS: aspirin 81 mg EC Tablet PO (08:18)
[2020-07-20] MEDS: duloxetine 20 mg Capsule 40 MG PO (08:18)
[2020-07-20] MEDS: famotidine 20 mg Tablet PO (08:18)
[2020-07-20] MEDS: FUROsemide 40 mg Tablet PO (08:18)
--- NOTE | 2020-07-20 09:20 | PC.SOCIAL ---
IMM Update Pg. 2 of IMM updated and reviewed with patient who verbalized understanding. Copy provided.
[2020-07-20] MEDS: sodium chloride 0.9% 1,000 ML 75 ML IV (10:14)
[2020-07-20] MEDS: HYDROcodone-acetaminophen 10-325 mg Tablet 1 TAB PO (10:14)
--- NOTE | 2020-07-20 15:43 | P.DS_ITS ---
Discharge Providers Date of Admission: 07/17/20 09:26 Date of Discharge: July 20, 2020 Attending Provider at Admission: Tyshawn Chavez MD Attending Provider at Discharge: Giselle Arrington MD Primary Care Provider: Blas Jimenez MD Diagnoses at Discharge Discharge Diagnosis (1) Cerebrovascular accident: Status: Acute (2) Chronic pain: Status: Acute (3) History of pulmonary embolism: Status: Acute (4) Hypertension: Status: Acute (5) DVT (deep venous thrombosis): Status: Acute Reason for Visit Reason for Visit: EXTREMITY WEAKNESS Hospital Course Hospital Course Wing Vega is a 84 year old male with past medical history of hypertension was brought in on July 17 by the EMS with chief complaint of acute onset of rt sided weakness as well as slurred speech. Hospital course as below: (1) Cerebrovascular accident: NIH stroke scale 11 upon presentation Telestroke service was called at [facility] post TPA around 8 AM on July 17, [address] head without contrast: No acute intracranial pathology. CT angio headneck No occlusion. [id number] stenosis of the most distal cervical vertebral artery on the left. 24-hour post TPA CT head without any acute intracranial abnormalities, no evidence of bleeding EKG: Normal sinus rhythm, first-degree AV block, right bundle branch block.no arrhythmias noted 2D Echo with LVEF of 66%, mild concentric LVH, grade 1 diastolic dysfunction, normal to mildly elevated filling pressures, thickened aortic valve. Telemetry without acute events. Started aspirin 81 MG PO Daily , Plavix 75 mg PO Daily. Continue Lipitor 40 mg p.o. daily. Per telestroke recommendations, blood pressure goal is to keep systolic less than 185. SBP currently ranging between 150-170 systolic, improved over admission when he was on nicardipine drip. He was originally planned to be discharged on July 19, 2020, however in the afternoon he started complaining again of right leg heaviness and his speech seemed slightly slurred. CT of the head was again repeated and did not show any acute events. On this day his antihypertensives had been resumed also with amlodipine 5 mg daily and losartan 25 mg p.o. daily. In the afternoon shortly prior to the events described above his systolic blood pressure was at 112. Possible explanation of recurrence of symptoms may have been low blood pressure leading to poor cerebral perfusion. Antihypertensives were discontinued. He was given IV fluids. Systolic blood pressure has now been ranging between 1 38- 1 78 systolic without any recurrence of symptoms. Therefore at discharge his antihypertensives have been discontinued, follow-up has been arranged with Dr. Stover's office in 2 weeks at which time antihypertensives may be resumed if needed. It is likely that his systolic blood pressure may be higher than usual to maintain cerebral perfusion. (2) Chronic pain: Result of degenerative joint disease. Continue home medications duloxetine, fentanyl patch. (3) History of pulmonary embolism several years ago: As a result of proximal thigh DVT , unclear if provoked vs unprovoked at the time (4) Hypertension: Antihypertensives on hold at discharge (5) Non occlusive right peroneal vein DVT. At this time, given non occlusive distal DVT, does not meet crieria for IVC filter. Discused with patient regarding anticoagulation, he has a past h/o recurrent falls with resulting hematomas eventually resulting in Hb drop to 6, which led to coumadin being discontinued. Given that he is still a high fall risk, risk of a/c outweighs potential risk of DVT progression. Discussed above also with his primary care physician Dr. Jimenez with whom he will follow-up to look for any progression of the DVT. Physical Exam Narrative: EXAM NARRATIVE: GEN: Awake, alert and oriented, no acute distress CVS: S1S2 N RS: CTA B/L Abd: Soft, nt/nd , bs+ POSTMASTER RELIEF: no focal neuro deficits Extremities bilateral lower extremity varicose veins present, left joint swelling, unchanged over previous exams, known to have degenerative joint disease. Discharge Data Data Completed and Pending: Completed Studies During Hospitalization Category Date Time Status CT angio headneck * [id number]/[id number] Urge nt Cat Scan 07/17/20 08:[address] head wo con* 7 0450 Routine Cat Scan 07/18/20 06:[address] head wo con* 7 0450 Routine Cat Scan 07/19/20 15:[address] head wo con* 7 0450 Urgent Cat Scan 07/17/20 07:49 Completed XR chest 1V sushil ble [id number] Urgent Exams 07/17/20 07:49 Completed CV echo complete* [id number] Routine Ultrasound 07/18/20 12:44 Completed CV echo lmt wo/w bubble [id number] Routi ne Ultrasound 07/20/20 07:00 [place] [id number] Routin e Ultrasound 07/18/20 15:18 Completed Labs from last 24 hours 07/20/20 07/20/20 04:25 04:25 WBC 9.3 RBC 5.58 H Hgb 17.7 H Hct 57.1 H MCV 102.3 H MCH 31.7 MCHC 31.0 RDW 14.0 Plt Count 199 MPV 9.4 Neut % (Auto) 73.4 Lymph % (Auto) 15.5 Moffat % (Auto) 9.1 Eos % (Auto) 1.3 Baso % (Auto) 0.4 Neut # (Auto) 6.83 Lymph # (Auto) 1.4 Moffat # (Auto) 0.9 Eos # (Auto) 0.1 Baso # (Auto) 0.0 Nucleated RBC % (a uto) 0 Nucleated RBCs # 0.0 Sodium 134 L Potassium 4.4 Chloride 99 Carbon Dioxide 20 L Anion Gap 19.4 H BUN 23 Creatinine 0.8 GFR Calculation Not Reportable Glucose 86 Calculated Osmolal ity 281 L Calcium 8.7 Total Bilirubin 0.8 AST 27 ALT 14 Alkaline Phosphata se 64 Total Protein 6.5 L Albumin 3.5 Globulin 3.0 Vitals: Last Vital Signs Temp 99.0 F 07/20/20 15:26 Pulse 72 07/20/20 15:26 Resp 18 07/20/20 15:26 BP 126/70 07/20/20 15:26 Pulse Ox 96 07/20/20 15:20 Discharge Plan Discharge Patient Disposition: Home Condition: Stable Prescriptions: New aspirin 81 mg Tablet,Delayed Release (Dr/Ec) 81 mg PO DAILY 30 Days Qty: 30 RF: 0 atorvastatin 40 mg Tablet 40 mg PO BEDTIME 30 Days Qty: 30 RF: 0 clopidogrel 75 mg Tablet 75 mg PO DAILY 30 Days Qty: 30 RF: 0 Continued potassium chloride 10 mEq capsule, extended release 10 meq PO DAILY Qty: 90 RF: 3 testosterone cypionate 200 mg/mL kit See Rx Instructions .ROUTE .COMPLEX Qty: 1 RF: 5 famotidine [Pepcid] 20 mg tablet 20 mg PO DAILY Qty: 90 RF: 3 fentanyl 50 mcg/hr patch 72 hour 1 patch transdermal Q72H 30 Days Qty: 10 RF: 0 hydrocodone-acetaminophen 10-325 mg tablet 1 tab PO Q8H PRN (Reason: pain) 30 Days Qty: 90 RF: 0 diclofenac sodium 1 % gel See Rx Instructions topical QID Qty: 100 RF: 8 duloxetine 40 mg Capsule, Delayed Rel Sprinkle See Rx Instructions .ROUTE .COMPLEX RF: 0 Fish Oil 1,200 (144-216) mg Capsule 2 cap PO DAILY RF: 0 Glucosamine Chondroitin 550-30-1 mg Capsule 1 cap PO PRN RF: 0 furosemide 80 mg tablet See Rx Instructions .ROUTE .COMPLEX RF: 0 ferrous gluconate 324 mg (37.5 mg iron) tablet 324 mg PO QAM RF: 0 Discontinued celecoxib 200 mg capsule See Rx Instructions .ROUTE .COMPLEX Qty: 60 RF: 0 losartan 50 mg tablet 75 mg PO QAM RF: 0 aspirin 325 mg tablet 325 mg PO QAM RF: 0 Discharge Orders: Discharge Order (Routine); Ordered 07/19/20 Ordered By: Giselle Arrington Referrals: Jennifer Stover MD [Physician] - 08/02/20 11:00 am Blas Jimenez MD [Primary Care Provider] - 07/27/20 11:15 am Discharge Diet: Usual diet Discharge Activity: Resume usual activity Patient Instructions: Aspirin (By mouth), Atorvastatin (By mouth), Clopidogrel (By mouth), Deep Venous Thrombosis (DC), Self Care Measures After a Stroke (DC), Stroke Stoplight Discharge Attestations Time Spent in Discharge Care*: greater than 30 min Status at Discharge: Cognitive status at discharge: cognitively intact , Behavioral status at discharge: cooperative , Quality Metrics Clinical Quality Measures During this hospital stay, did patient experience: Stroke Contraindication to Antithrombotic: Antithrombotic prescribed Contraindication to Anticoagulation: Other Contraindication to Statin: Statin prescribed Rehab services assessed: Physical therapy, Occupational therapy and Speech therapy Coding Level of Care Code Acute Field Pipelines Supervisor for Mary Jane Fwd Diagnoses Cerebrovascular accident I63.9 Chronic pain G89.29 History of pulmonary embolism Z86.711 Hypertension I10 DVT (deep venous thrombosis) I82.409
== END 2020-07-20 16:45 | disposition home or self-care (01) | DRG 62 ==
LOC: ER 09:35 → ICU 07-18 07:25 → MEDSURG 07-18 17:46
PROVIDERS: Admitting Provider Internal Medicine; Emergency Provider Emergency Medicine; PCP Internal Medicine; Visit Provider Student in an Organized Health Care Education/Training Program
DX: I63.212 Cerebral infarction due to unspecified occlusion or stenosis of left vertebral artery (principal); G81.91 Hemiplegia, unspecified affecting right dominant side; I82.451 Acute embolism and thrombosis of right peroneal vein; R29.810 Facial weakness; R47.81 Slurred speech; R29.711 NIHSS score 11; I10 Essential (primary) hypertension; Z86.718 Personal history of other venous thrombosis and embolism; M19.90 Unspecified osteoarthritis, unspecified site; F32.9 Major depressive disorder, single episode, unspecified; E29.1 Testicular hypofunction; Z87.440 Personal history of urinary (tract) infections; Z96.651 Presence of right artificial knee joint; Z87.891 Personal history of nicotine dependence; G89.29 Other chronic pain; Z86.711 Personal history of pulmonary embolism; Z79.891 Long term (current) use of opiate analgesic
CPT/HCPCS: 36415; 36416; 70450; 70496; 70498; 71045; 80053; 80061; 82962; 83735; 84443; 85025; 85610; 92523; 92610; 93005; 93306; 93970; 96365; 96375; 97116; 97161; 97530; 99291; C8924; J2997; J3490; J7030; Q9967

== ENCOUNTER 2020-07-21 19:55 | Inpatient (IN) | payer MEDICARE, OTHER, SELFPAY ==
[2020-07-21 19:56] VITALS: BP 160/86; PULSE 80; RESP 18; TEMP 36.8; O2SAT 95; BMI 33.7
--- NOTE | 2020-07-21 20:09 | PC.NURSE ---
Patient blood glucose is 145
[2020-07-21 20:12] LABS: Glucose Point of Care 145 mg/dL (70-110)
--- NOTE | 2020-07-21 20:12 | CTR_ITS ---
PROCEDURE INFORMATION: Exam: CT Head Without Contrast Exam date and time: 07/21/2020 8:23 PM Age: 84 years old Clinical indication: Speech disturbance and weakness, extremity and weakness, facial; Right; Additional info: Recurrent neuro deficits, S/P tpa last week TECHNIQUE: Imaging protocol: Computed tomography of the head without contrast. Radiation optimization: All CT scans at this facility use at least one of these dose optimization techniques: automated exposure control; mA and/or kV adjustment per patient size (includes targeted exams where dose is matched to clinical indication); or iterative reconstruction. COMPARISON: CT head wo con* [id number] 07/19/2020 4:22 PM RADIATION DOSE METRICS: Total DLP (mGy-cm): 922.62 FINDINGS: Brain: A new focal hypodensity along the anterior margin of the right lateral ventricle anterior horn within the adjacent white matter the romero-white interface is maintained. No signs of acute infarct. No mass or mass effect. No hemorrhage. Cerebral ventricles: Symmetric and without enlargement. Bones/joints: No acute fracture. Paranasal sinuses: Visualized sinuses are well aerated. Mastoid air cells: Visualized mastoid air cells are well aerated. Soft tissues: No concerning abnormalities. CT/CT head wo con* [id number] IMPRESSION: 1. Compared to the prior exam there is a new area of gliosis within the right frontal lobe periventricular white matter. 2. No CT evidence of acute vascular insult. Radiation Dose CTDIVOL = (mGy): DLP = 922.62 (mGy-cm)
[2020-07-21 20:19] VITALS: BP 146/93; PULSE 82; RESP 16; O2SAT 94
--- NOTE | 2020-07-21 20:35 | ED_ITS ---
HPI - Neuro Symptoms/Deficit General: Chief Complaint: Neuro Symptoms/Deficit Stated Complaint: slurred speech Time Seen by Provider: 07/21/20 20:05 Source: patient Mode of arrival: ambulatory History of Present Illness: HPI Narrative: 84-year-old male was discharged from the hospital yesterday after receiving TPA for CVA on 07/17/2020. He initially had improvement of his symptoms following TPA administration, however some of the symptoms returned later on in his inpatient course, likely due to relative hypotension, so his BP meds were discontinued on discharge. This evening around 6:30 PM he started feeling off , his noticed that he started having slurred speech and drooping again of his right face. In addition he was having some difficulty ambulating with weakness and numbness of his right arm and leg similar to his symptoms when he initially presented last week with an acute stroke. He has been taking his meds as scheduled; Plavix, aspirin, statin. He has not resumed any of his antihypertensives yet. Denies any trauma to his head in the interim. By the time I examined him, his weakness and sensory changes in his extremities had improved, but he was still had noticeable right facial droop and dysarthria. Onset (ago): hour(s) Location: speech, right face, dysarthria, right arm and right leg History of same: Yes Severity: moderate Associated symptoms: Deny chest pain, headache(s), nausea, vertigo or vomiting Review of Systems Const: Denies: fever(s), chills, change in appetite, change in weight or fatigue Eyes: Denies: change in vision, blurry vision or blind spots ENMT: Reports: dry mouth; Denies: odynophagia or hoarseness Card: Denies: chest pain, palpitations or irregular heart rhythm Resp: Denies: dyspnea, productive cough or non-productive cough GI: Denies: abdominal pain, nausea or vomiting : Denies: difficulty urinating or dysuria Musc: Reports: extremity swelling and muscle weakness Skin/Breast: Reports: rash, erythema (left foot), skin swelling and changes in skin color Neuro: Reports: numbness in extremities, weakness in extremities, lack of coordination, difficulty walking, Slurred speech present and difficulty communicating thoughts; Denies: headache(s), dizziness, vertigo, seizure-like activity or involuntary movements All/Imm: Denies: urticaria or throat swelling PFSH ED PFSH: Medical History (Updated 07/22/20 @ 01:05 by Joan Garcia MD) Arthritis Depression DVT (deep venous thrombosis) Fluid retention in legs Hypertension Hypogonadism Quadriceps tendon rupture Urinary tract infection Warfarin-induced coagulopathy Surgical History History of arthroplasty of right knee Family History Father Cancer Lung cancer Social History Smoking and tobacco status: former smoker Alcohol intake: current Alcohol intake frequency: few times a month History of recent travel: No NIH stroke score NIHSS: Level Of Consciousness - 1a: 0 Level Of Consciousness Questions - 1b: Both Correct Level Of Consciousness Commands - 1c: Both Correct Best Gaze - 2: Normal Visual Mcgill - 3: No Visual Loss Facial Palsy - 4: Partial Paralysis Motor Arm Right - 5: No Drift Motor Arm Left - 5: No Drift Motor Leg Right - 6: No Drift Motor Leg Left - 6: No Drift Limb Ataxia - 7: Absent Sensory - 8: Normal Best Language - 9: Mild/Moderate Aphasia Dysarthia - 10: Severe Dysarthia Extinction And Inattention - 11: 0 Score: Total Score: 5 Physical Exam Const: COMMON NORMALS: patient oriented x3 GENERAL APPEARANCE: cooperative and anxious; not ill appearing, not frail appearing and not diaphoretic NUTRITIONAL APPEARANCE: obese ORIENTATION/CONSCIOUSNESS: Yes awake, Yes oriented to person, Yes oriented to place and Yes oriented to time HENMT: COMMON NORMALS: normocephalic and atraumatic HEAD & SCALP: normocephalic and atraumatic FACE & SINUS: Flattened naso-labial fold present Right MOUTH: no audible dysphonia and no drooling THROAT: uvula midline Eye: COMMON NORMALS: Equal, round and reactive pupils present, EOMs intact bilaterally, conjunctivae normal and no scleral icterus GENERAL EYE: appearance normal, both eyes and all related structures ALIGNMENT: Yes alignment normal EYELID: eyelids normal CONJUNCTIVA: Yes conjunctivae normal SCLERA: sclerae normal PUPIL: Yes Equal, round and reactive pupils present Neck/C-Spine: COMMON NORMALS: full ROM, no lymphadenopathy and supple Chest: COMMONS NORMALS: normal inspection of the chest and normal palpation of entire chest wall Cardio: COMMON NORMALS: regular rhythm, S1 normal heart sound present, S2 normal heart sound present and No murmurs present (Cardio) RHYTHM: regular rhythm HEART SOUNDS: S1 normal heart sound present and S2 normal heart sound present GI: COMMON NORMALS: Normal to inspection, nondistended, normoactive bowel sounds present, Soft to palpation, non-tender and no masses PALPATION: Yes Soft to palpation Extremity: GENERAL: No calf tenderness, Yes cyanosis and Yes edema RIGHT LOWER EXTREMITY: Yes foot & digits Right foot and digits: Yes inspection (Toes; cyanotic, cool, delayed cap refill, nontender) LEFT LOWER EXTREMITY: Yes foot & digits (Erythema and swelling over the dorsal foot) Left foot and digits: Yes inspection (Toes cool, cyanotic, healing abrasions with dark eschar) and Yes neurovascular exam (Normal sensation.) Neuro: COMMON NORMALS: patient oriented x3 SENSORIUM/ORIENTATION: Yes oriented to person, Yes oriented to place and Yes oriented to time CRANIAL NERVES: Yes CN VII (facial) Laterality: right CN VII findings: facial droop, flattened naso-labial fold, unable to puff cheeks and asymmetrical smile, No CN IX and CN X (glossopharyngeal/vagus) and No CN XII (hypoglossal) COORDINATION /BALANCE: [id number] test normal and xspm-jk-acic test normal SPEECH: abnormal speech Details: garbled, slurred and stuttering GAIT: Yes Unable to assess gait MOTOR EXAM: 5/5 motor strength present throughout, Pronator motor function not present, no tremor noted and Normal motor muscle tone present throughout COORDINATION: [id number]-[id number] test normal and [id number] test normal Psych: MOOD & AFFECT: Yes anxious and Yes irritable Skin: GENERAL SKIN EXAM: erythema (Dorsal left foot) TRAUMA: abrasion (Distal toes on the left foot) Course Vital Signs: Vital signs: Vital Signs Temperature 98.3 F 07/21/20 19:56 Pulse Rate 86 07/22/20 00:18 Respiratory Rate 17 07/22/20 00:18 Blood Pressure 186/103 07/22/20 00:18 Pulse Oximetry 97 07/22/20 00:18 MDM - Neuro Symptoms/Deficit MDM Narrative: Medical decision making narrative: 84-year-old male with recurrent neuro deficits similar to when he presented on 07/17/2020 with acute stroke and was treated with TPA. NIH score on my exam was 5; his weakness had pretty much resolved, but he was having significant facial droop, dysarthria, and aphasia. Noncontrast CT shows new hypodense area/gliosis along the anterior margin of the right lateral ventricle. No acute vascular insult. CBC and chemistry unremarkable. Arterial and venous ultrasound of left leg showed no acute occlusion or clot. CRP is elevated, so we will go ahead and order antibiotics for suspected cellulitis of his left foot. Consulted [facility] neurologist on-call Dr Grimm, to discuss the case. They recommend repeating a CTA to look for any new lesion, and they will give further recommendations based on the results. Permissive hypertension. CTA results discussed with . He favors completion of existing CVA as the etiology of the patient's recurrent symptoms instead of a new process. He recommends readmission for monitoring, MRI. Again recommends permissive hypertension over the next 24 to 48 hours. EKG; sinus rhythm with first-degree AV block, OR 227. Rate 78, QRS 163, QTc 435, right bundle branch block, left anterior fascicular block. No acute changes compared to previous EKG on 07/17/2020. Medical Records: Attestation: I reviewed the patient's medical records. Lab Data: Attestation: I reviewed the patient's lab results. Labs: Lab Results 07/21/20 07/21/20 07/21/20 Range/Units 20:03 21:57 21:57 WBC 8.3 (4.0-10.0) 10^3/ uL RBC 5.52 H (4.1-5.3) 10^6/u L Hgb 17.6 H (11.7-16.6) g/dL Hct 53.3 H (42.0-52.0) % MCV 96.6 H (80-94) fL MCH 31.9 (28.0-34.0) pg MCHC 33.0 (30.0-36.0) g/dL RDW 13.5 (12.1-15.1) % Plt Count 239 (130-400) 10^3/c mm MPV 9.9 (7.4-10.4) fL Neut % (Auto) 74.6 % Lymph % (Auto) 14.6 % [place] % (Auto) 9.3 % Eos % (Auto) 0.6 % Baso % (Auto) 0.5 % Neut # (Auto) 6.17 (1.8-7.7) 10^3/u L Lymph # (Auto) 1.2 (0.8-4.8) 10^3/u L [place] # (Auto) 0.8 (0.2-0.9) 10^3/u L Eos # (Auto) 0.1 (0.0-0.8) 10^3/u L Baso # (Auto) 0.0 (0.0-0.1) 10^3/u L Nucleated RBC % (a uto) 0 % Nucleated RBCs # 0.0 /100WBC Sodium 139 (136-145) mmol/L Potassium 3.9 (3.5-5.1) mmol/L Chloride 102 (98-107) mmol/L Carbon Dioxide 27 (22-29) mmol/L Anion Gap 13.9 (5-19) BUN 24 H (8-23) mg/dL Creatinine 1.0 (0.7-1.2) mg/dL GFR Calculation Not Reportable Glucose 122 H (65-115) mg/dL POC Glucose 145 H (70-110) mg/dL Calculated Osmolal ity 293 (285-295) mOsm/k g Calcium 8.5 (8.5-10.5) mg/dL Total Bilirubin 0.6 (0.15-1.2) mg/dL AST 18 (0-40) U/L ALT 17 (0-41) U/L Alkaline Phosphata se 75 (40-130) IU/L C-Reactive Protein 64.6 H (0.0-4.9) mg/L Total Protein 6.9 (6.6-8.7) g/dL Albumin 3.9 (3.5-5.2) g/dL Globulin 3.0 (1.3-4.6) g/dL Discharge Plan Discharge Patient Disposition: Admitted As Inpatient Clinical Impression: Recent cerebrovascular accident, Dysarthria and anarthria, 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), Cellulitis of foot, Dysphagia due to recent cerebral infarction Condition: Stable Coding Level of Care Code ED Motor Adjuster for Mary Jane Martino Exam Comprehensive
--- NOTE | 2020-07-21 20:48 | USCV_ITS ---
SilviaWing coello Age: 84 Gender: M : 1935 Exam Date: 07/21/2020 21:37 Ordering Phys: Joan Garcia MD Technologist: David Oquendo Exam Location: [facility] [place]_ Indication: swelling HISTORY: Lower extremity swelling. PROCEDURES: Venous duplex imaging was performed in only the left lower extremity. The following venous structures were evaluated: common femoral vein, profunda vein, proximal portion of the greater saphenous vein, superficial femoral vein, and the popliteal vein. In addition, the posterior tibial and peroneal trunk were evaluated. Serial compression, augmentation maneuvers, and spectral Doppler flow evaluation were performed. FINDINGS: Normal 2-D Doppler and augmentation and compressibility throughout the lower extremity venous structures. Additional imaging through the proximal calf veins also reveals no thrombus. Limited evaluation of the greater saphenous vein is patent with no thrombus.. CONCLUSIONS No evidence of DVT in the above-mentioned identifiable veins. Dr Rigo Deng MD [facility] (Electronically Signed) Final Date: 22 July 2020 19:02 S
--- NOTE | 2020-07-21 20:50 | USCV_ITS ---
Wing Vega Age: 84 Gender: M : 1935 Exam Date: 07/21/2020 21:43 Ordering Phys: Joan Garcia MD Technologist: David Oquendo Exam [place] [facility] [place] Indication: PAD RIGHT LEFT Brachial 130.00 mmHg Brachial 130.00 mmHg Pressure (mmHg) Waveform Pressure (mmHg) Waveform 125.00 CAD OPERATOR 125.00 130.00 DPA 125.00 1.00 Ankle/Brachial Index 0.96 FINDINGS Resting SUHAIL was 1.0 on the right side and 0.96 in the left side CONCLUSIONS Normal resting ABIs bilaterally No significant arterial obstruction, based on the above findings. Dr Rigo Deng MD [facility] (Electronically Signed) Final Date: 22 July 2020 19:03 S
[2020-07-21 21:09] VITALS: BP 130/80; PULSE 78; RESP 16; O2SAT 96
--- NOTE | 2020-07-21 21:37 | PC.NURSE ---
patient back from CT
--- NOTE | 2020-07-21 21:45 | PC.NURSE ---
ultrasound in room
[2020-07-21 22:07] VITALS: BP 141/76; PULSE 81; RESP 17; O2SAT 94
[2020-07-21 22:14] LABS: Basophils % 0.5 %; Eosinophils # 0.1 10^3/uL (0.0-0.8); Eosinophils % 0.6 %; Hematocrit 53.3 % (42.0-52.0); Hemoglobin 17.6 g/dL (11.7-16.6); Lymphocytes # 1.2 10^3/uL (0.8-4.8); Lymphocytes % 14.6 %; Mean Corpuscular Hemoglobin 31.9 pg (28.0-34.0); Mean Corpuscular Volume 96.6 fL (80-94); Mean Platelet Volume 9.9 fL (7.4-10.4); Monocytes # 0.8 10^3/uL (0.2-0.9); Monocytes % 9.3 %; Neutrophils # 6.17 10^3/uL (1.8-7.7); Neutrophils % 74.6 %; Nucleated Red Blood Cells % 0 %; Platelet Count 239 10^3/cmm (130-400); Red Blood Count 5.52 10^6/uL (4.1-5.3); Red Cell Distribution Width 13.5 % (12.1-15.1); White Blood Count 8.3 10^3/uL (4.0-10.0)
[2020-07-21 22:41] LABS: Alanine Aminotransferase 17 U/L (0-41); Albumin Level 3.9 g/dL (3.5-5.2); Alkaline Phosphatase 75 IU/L (40-130); Anion Gap 13.9 (5-19); Aspartate Amino Transferase 18 U/L (0-40); Blood Urea Nitrogen 24 mg/dL (8-23); Calcium 8.5 mg/dL (8.5-10.5); Carbon Dioxide 27 mmol/L (22-29); Chloride 102 mmol/L (98-107); Glucose 122 mg/dL (65-115); Osmolality Calculated 293 mOsm/kg (285-295); Potassium 3.9 mmol/L (3.5-5.1); Sodium 139 mmol/L (136-145); Total Bilirubin 0.6 mg/dL (0.15-1.2); Total Protein 6.9 g/dL (6.6-8.7)
[2020-07-21 23:11] VITALS: BP 170/91; PULSE 88
[2020-07-21 23:14] LABS: C Reactive Protein 64.6 mg/L (0.0-4.9)
--- NOTE | 2020-07-21 23:39 | CTR_ITS ---
PROCEDURE INFORMATION: Exam: CT Angiography Head With Contrast Exam date and time: 07/21/2020 12:08 AM Age: 84 years old Clinical indication: Speech disturbance and weakness; Patient HX: Worsening right side deficits with facial droop and slurred speech. 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 ; Additional info: Recurrent right facial droop, dysarthria, R hemiparesis TECHNIQUE: Imaging protocol: Computed tomography angiography of the head with intravenous contrast. 3D rendering (Not supervised by radiologist): MIP and/or 3D reconstructed images were created by the technologist. Radiation optimization: All CT scans at this facility use at least one of these dose optimization techniques: automated exposure control; mA and/or kV adjustment per patient size (includes targeted exams where dose is matched to clinical indication); or iterative reconstruction. Contrast material: OMNI 350; Contrast volume: 95 ml; Contrast route: INTRAVENOUS (IV); COMPARISON: CT head wo con* [id number] 07/21/2020 9:44 PM RADIATION DOSE METRICS: Total DLP (mGy-cm): 2278.55 FINDINGS: ANTERIOR CIRCULATION: Right internal carotid artery: Several calcifications of the right internal carotid artery C2 and C3 segments with approximately 50-75 % stenosis throughout the segments. Right middle cerebral artery: Unremarkable. No occlusion or significant stenosis. No aneurysm. Right anterior cerebral artery: Unremarkable. No occlusion or significant stenosis. No aneurysm. Left internal carotid artery: Calcifications of the left internal carotid artery C2 and C3 segments with approximately 50% stenosis. Left middle cerebral artery: Unremarkable. No occlusion or significant stenosis. No aneurysm. Left anterior cerebral artery: Unremarkable. No occlusion or significant stenosis. No aneurysm. POSTERIOR CIRCULATION: Right vertebral artery: The right vertebral artery is dominant. Left vertebral artery: The left vertebral artery is small and appears to end before joining the right vertebral. No definite focal stenosis or acquired occlusion. Basilar artery: Unremarkable. No occlusion or significant stenosis. No aneurysm. Right posterior cerebral artery: Small with a suspected origin. No occlusion or significant stenosis. No aneurysm. Left posterior cerebral artery: Small. No occlusion or significant stenosis. No aneurysm. Brain: No definite mass, mass effect, or midline shift. Cerebral ventricles: No ventriculomegaly. Bones/joints: Unremarkable. No acute fracture. Soft tissues: Unremarkable. 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 PROCEDURE INFORMATION: Exam: CT Angiography Neck With Contrast Exam date and time: 07/21/2020 12:08 AM Age: 84 years old Clinical indication: Speech disturbance and weakness; Patient HX: Worsening right side deficits with facial droop and slurred speech. 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 ; Additional info: Recurrent right facial droop, dysarthria, R hemiparesis TECHNIQUE: Imaging protocol: Computed tomography angiography of the neck with intravenous contrast. 3D rendering (Not supervised by radiologist): MIP and/or 3D reconstructed images were created by the technologist. Radiation optimization: All CT scans at this facility use at least one of these dose optimization techniques: automated exposure control; mA and/or kV adjustment per patient size (includes targeted exams where dose is matched to clinical indication); or iterative reconstruction. Contrast material: OMNI 350; Contrast volume: 95 ml; Contrast route: INTRAVENOUS (IV); COMPARISON: CT head wo con* [id number] 07/21/2020 9:44 PM RADIATION DOSE METRICS: Total DLP (mGy-cm): 2278.55 FINDINGS: Right common carotid artery: No stenosis. No dissection or occlusion. Right internal carotid artery: No stenosis of the extracranial segment. No dissection or occlusion. Right external carotid artery: No occlusion or stenosis of the origin. Right vertebral artery: Dominant vessel. No stenosis. No dissection or occlusion. Left common carotid artery: No stenosis. No dissection or occlusion. Left internal carotid artery: No stenosis of the extracranial segment. No dissection or occlusion. Left external carotid artery: No occlusion or stenosis of the origin. Left vertebral artery: Small vessel. No stenosis. No dissection or occlusion. Bones/joints: No acute fracture. Soft tissues: Normal. No significant soft tissue swelling. CT/CT angio headneck* [id number] IMPRESSION: No stenosis or occlusion. REFERENCES: NASCET CRITERIA. The degree of internal carotid artery stenosis is based on NASCET criteria. Normal is no stenosis. Mild is less than 50% stenosis. Moderate is 50-69% stenosis. Severe is 70% to 99% stenosis. Total occlusion is no detectable patent lumen. Radiation Dose CTDIVOL = (mGy): DLP = 2278.55~2278.55 (mGy-cm)
[2020-07-21 23:53] VITALS: BP 162/91; PULSE 89; RESP 18; O2SAT 93
--- NOTE | 2020-07-21 23:55 | PC.NURSE ---
patient to CT
[2020-07-22] VITALS (17 sets, daily range): BP systolic 143–186; BP diastolic 74–104; PULSE 73–86; RESP 14–20; TEMP 36.8–37.2; O2SAT 91–99
[2020-07-22] MEDS: iohexol 350 mg/mL 100 mL Btl IV (00:10)
--- NOTE | 2020-07-22 01:28 | PM.HP ---
Providers/Chief Complaint Primary Care Provider: Blas Jimenez MD Chief Complaint: slurred speech History of Present Illness Wing Vega is a 84 year old male with a past medical history of hypertension, DVT not on anticoagulation, recent history of CVA status post TPA, on day before discharge patient did develop recurrent right-sided heaviness and slurred speech, likely secondary to hypotensive episode, which resolved on discharge who presents to [facility] for feeling off, with slurring of his speech, right-sided facial droop, right upper and right lower extremity weakness, unsteadiness, trouble ambulating. Patient has been taking aspirin, Plavix, statin, has not resumed any of his hypertensive medications. His NIH stroke scale on examination was 5. During my examination, he had right upper extremity strength 3 out of 5, right lower extremity strength 3 out of 5, right facial droop, productive aphasia. He had a CT of his head which showed gliosis along the anterior margin of the right lateral ventricle, no vascular insult, had a CTA of the head and neck which showed high-grade stenosis of both internal carotid arteries at C2 and C3 segment. EKG did not show any A. fib events these findings were discussed with neurologist at [facility], Dr. Nascimento, who favored completion of existing CVA as etiology of his recurrent symptoms instead of a new process, recommended readmission for monitoring, MRI, allowing for permissive hypertension for the next 24 to 48 hours. During my examination, patient was very irritable, was angry at the neurologist findings, wanted to leave AGAINST MEDICAL ADVICE. I advised against this, I advised continued inpatient admission, repeat MRI, continued monitoring, monitoring his blood pressure, monitoring telemetry. Advised that going home is is associated with including but not limited to significant morbidity and mortality, significant neurologic injury, risk of . He voiced understanding, all questions answered, wants to go home. Review of Systems Const: Denies: fever(s) Card: Denies: chest pain or palpitations Resp: Denies: dyspnea GI: Denies: abdominal pain Neuro: Reports: weakness in extremities, lack of coordination, difficulty walking, frequent falls and Slurred speech present; Denies: headache(s) Medications/Allergies Home Medications Medication Instructions Recorded Confirmed Last Taken Type duloxetine See Rx Instructions .ROUTE .COMPLEX 06/15/19 07/21/20 07/21/20 History 40 MG diclofenac sodium 1 % topical gel See Rx Instructions TOPICAL QID 09/21/19 07/21/20 Unknown Rx #100 gm testosterone cypionate 200 mg/mL See Rx Instructions .ROUTE 06/07/20 07/21/20 07/16/20 Rx intramuscular kit .COMPLEX #1 each fentanyl 50 mcg/hr transdermal 1 patch TRANSDERMAL Q72H 30 Days 07/04/20 07/21/20 07/21/20 Rx patch #10 each PUT NEW PATCH TODAY hydrocodone 10 mg-acetaminophen 1 tab PO Q8H PRN 30 Days #90 tab 07/04/20 07/21/20 07/21/20 17:00 Rx 325 mg tablet ferrous gluconate 324 mg PO QAM 07/17/20 07/21/20 07/21/20 History atorvastatin 40 mg PO BEDTIME 30 Days #30 tab 07/19/20 07/21/20 07/20/20 Rx Pepcid 20 mg PO BEDTIME 07/21/20 07/21/20 07/20/20 History aspirin 81 mg PO DAILY@07/21/20 07/21/20 07/21/20 09:00 History clopidogrel 75 mg PO DAILY@07/21/20 07/21/20 07/21/20 History furosemide 80 mg PO DAILY@07/21/20 07/21/20 07/21/20 History potassium chloride 10 meq PO DAILY@07/21/20 07/21/20 07/21/20 History cephalexin [Keflex] 500 mg PO BID 7 Days #14 cap 07/22/20 Unknown Rx doxycycline hyclate 100 mg PO BID 7 Days #14 cap 07/22/20 Unknown Rx Allergies Allergy/AdvReac Type Severity Reaction Status Date / Time iron dextran complex Allergy ALGY-Rash Verified 07/21/20 20:43 rosuvastatin [From Crestor] Allergy JOINT PAIN Verified 07/21/20 20:43 PFSH Acute PFSH: Medical History (Updated 07/22/20 @ 01:05 by Joan Garcia MD) Arthritis Depression DVT (deep venous thrombosis) Fluid retention in legs Hypertension Hypogonadism Quadriceps tendon rupture Urinary tract infection Warfarin-induced coagulopathy Surgical History History of arthroplasty of right knee Family History Father Cancer Lung cancer Social History Smoking and tobacco status: former smoker Alcohol intake: current Alcohol intake frequency: few times a month History of recent travel: No Vitals/I&O/Wt Last Vital Signs Temp 98.3 F 07/21/20 19:56 Pulse 81 07/22/20 01:06 Resp 17 07/22/20 01:06 BP 143/88 07/22/20 01:06 Pulse Ox 91 07/22/20 01:06 Weight last 48 hrs Weight 100.698 kg Physical Exam Const: COMMON NORMALS: no acute distress and patient oriented x3 GENERAL APPEARANCE: cooperative and comfortable HENMT: COMMON NORMALS: normocephalic HEAD & SCALP: normocephalic Eye: COMMON NORMALS: Equal, round and reactive pupils present and EOMs intact bilaterally GENERAL EYE: appearance normal, both eyes and all related structures PUPIL: Yes Equal, round and reactive pupils present Neck/C-Spine: COMMON NORMALS: full ROM, no lymphadenopathy, no JVD and Thyroid normal THYROID: Thyroid normal Lymph: LYMPHATIC: no lymphadenopathy noted Resp: COMMON NORMALS: normal respiratory effort, No retractions, No use of accessory muscles and clear to auscultation bilaterally AUSCULTATION: clear to auscultation bilaterally Cardio: COMMON NORMALS: no JVD, regular rate, regular rhythm, S1 normal heart sound present, S2 normal heart sound present, No gallops present (Cardio), No clicks present (Cardio) and No murmurs present (Cardio) RATE: regular rate RHYTHM: regular rhythm HEART SOUNDS: S1 normal heart sound present and S2 normal heart sound present GI: COMMON NORMALS: Normal to inspection, nondistended, normoactive bowel sounds present, Soft to palpation, non-tender and No hepatosplenomegaly present PALPATION: Yes Soft to palpation and Yes No hepatosplenomegaly present Extremity: COMMON NORMALS: normal to inspection, full ROM and no pedal edema Neuro: COMMON NORMALS: patient oriented x3 OTHER: NIH stroke scale 5 Right facial droop Productive aphasia No choking episodes noted No receptive aphasia Alert to person, place, to time, answering questions, following commands Right upper extremity strength 3 out of 5 Right lower extremity strength 4 out of 5 Does have trouble coordinating Psych: COMMON NORMALS: mental status grossly normal, Normal thought process present and cooperative THOUGHT PROCESS: Normal thought process present Data : 07/21/20 21:57 07/21/20 21:57 A&P Additional A&P Information CVA: -Concerns for late effect of CVA -However patient requires continued inpatient monitoring, telemetry monitoring, allowing for permissive hypertension, neurologic checks, MRI brain -Patient left AGAINST MEDICAL ADVICE -Patient should follow-up with cardiology as outpatient for consideration of Holter monitoring -Continue aspirin, Plavix, statin -Hold blood pressure medication for the next 24 hours Attestations Medical Necessity Statement*: Patient requires hospitalization for late effect of CVA, outpatient with observation, wants to leave AGAINST MEDICAL ADVICE Coding Level of Care Code Acute Water/Wastewater Project Engineer for Mary Jane Martino
[2020-07-22] MEDS: vancomycin 1,500 MG/300 ML PIGGYBACK 200 MG IV (01:29)
--- NOTE | 2020-07-22 03:20 | PC.NURSE ---
At approximately 0310 this nurse removed IV and prepared to let patient leave AMA as he requested. At that time pt stated he did not want me to call his and wanted to stay in the room. Pt was notified that he could not stay in the E.D. if he was leaving AMA and he would need to wait in the waiting room for his . Pt became irritable, anxious and frustrated and used foul and aggressive language toward staff. De-escalation attempts made by this nurse and Belle SAMUEL and pt stated he wanted staff to call his and have her come in so she could help him make a decision to be admitted or go home. Pt contacted at this time by Belle SAMUEL and states she will come in to see him.
--- NOTE | 2020-07-22 04:35 | PC.NURSE ---
Pt and made decision at this time for pt to be admitted per medical advice. Hospitalist notified and states he will put in orders at this time.
--- NOTE | 2020-07-22 05:48 | MR_ITS ---
WS: [id number] MRI HEAD WITHOUT CONTRAST TECHNIQUE: Sagittal T1, T2 axial, T2 axial FLAIR, axial and coronal T1 images, axial susceptibility w eighted imaging, axial diffusion weighted images, and coronal T2 images were obtained. CLINICAL INFORMATION: cva COMPARISON: None. FINDINGS: Restricted diffusion in the left baer radiata extending into the left basal ganglia consistent with acute ischemia measuring 1.3 x 0.7 CM. No other foci of acute ischemia. Mild edema involving the area of ischemia. No mass effect or midline shift. Moderate small vessel juan luis nges. Moderate parenchymal volume loss. Normal posterior fossa. Tiny distal left vertebral artery. No rmal flow void right vertebral artery. Normal ICA flow voids at the skull base. Mastoid air cells well aerated. Retention cyst left maxillary sinus 2.1 cm. Normal optic chiasm and p ituitary infundibulum. Small punctate focus of hemosiderin in the right thalamus. Moderate symmetric atrophy involving the temporal lobes and hippocampal formations. MR/MR head wo con* [id number] IMPRESSION: 1. Restricted diffusion within the left baer radiata extending into the basa l ganglia consistent with acute ischemia described above. Mild associated edema . 2. No significant mass effect or midline shift. 3. Moderate chronic emphysematous changes. Moderate parenchymal volume loss. 4. Chronic lacunar infarcts in the periventricular white matter. 5. Tiny chronic focus of hemosiderin in the right thalamus. 6. No other significant findings. Notified Dr Tl MD at 07/22/2020 4:48 PM.
--- NOTE | 2020-07-22 06:03 | PC.PHAR ---
Pharmacokinetic dosing service Date: 07/22/20 Time: 0600 Objective: Patient: Floor: Age: 84 yo Serum creatinine: 1.0 mg/dL Height: 68.0 Inches Weight (kg): 100.698 Diagnosis: Relevant medical/social history: Cultures and sensitivities: Other labs: Assessment: IBW (kg): 68.40 Dosing wt(kg): 100.698 Estimated Creatinine clearance (ml/min): 55.1 CRCL method: Cockcroft and Gault using ibw(default). Drug selected: Vancomycin Loading dose (mg): 0 Vd (liters): 90.6 (factor used: 0.9 L/kg) Adam (hr-1): 0.050 Half life (hrs): 13.86 Recommended dose: 1500 mg Interval: 18 hrs Infusion time (hrs): 1.5 Predicted peak (mcg/mL): 26.9 Predicted trough (mcg/mL): 11.79 Total body weight is being used for vancomycin dosing. Renal function is stable [ ] /unstable [ ] Recommendations: Give Vancomycin 1500 mg q 18 hrs with an expected Cpeak of 26.9 mcg/ml and an expected Ctrough of 11.79 mcg/ml Renal dosing of other antibiotics (review renal dosing of other medications and list guidelines here): Thank you for the consult, will continue to follow. Signature: Regi Rodgers [facility]
[2020-07-22] MEDS: sodium chloride 0.9% 1,000 ML 75 ML IV ×2 (06:45→22:54)
[2020-07-22] MEDS: enoxaparin 40 mg/0.4 mL Syringe SUBCUT (06:45)
--- NOTE | 2020-07-22 14:03 | P.PN_ITS ---
Subjective Subjective: Interval history: Patient was seen and examined this morning, noticed dense right-sided hemiplegia Lower extremity bilateral hyperemia Recent venous Doppler revealed DVT Not a candidate for anticoagulation Will need usp placement PT/OT/speech evaluation today Patient did not complain of chest pain, shortness of breath, he has been complaining of cramps in his legs, he stating that he is not able to get up and is feeling very weak At the bedside he was able to swallow water without any choking Patient was very irritable during first few minutes however was cooperative during my clinical assessment MRI is pending Please note he was recently discharged from the hospital when these changes were noticed Overnight neurologist recommended completion of work-up and deemed his symptoms secondary to completion of CVA . Vitals/I&O/Wt Last Vital Signs Temp 98.6 F 07/22/20 11:44 Pulse 84 07/22/20 11:44 Resp 18 07/22/20 11:44 BP 166/78 07/22/20 11:44 Pulse Ox 95 07/22/20 11:44 07/21/20 07/22/20 07/22/20 22:59 06:59 14:59 Output Total 400 / 400 Balance -400 / -400 Weight last 48 hrs Weight 100.698 kg Physical Exam Narrative: EXAM NARRATIVE: Patient was examined at the bedside Right-sided facial droop, was able to swallow water without any aspiration S1, S2 sinus rhythm no murmur appreciated Right arm weakness on bicep flexion however handgrip and extension normal, is able to lift his right leg for about 5 seconds in the air however strength 3/5 as compared to left EOMI, PERRLA Pupils are equal in size Right-sided facial droop Soft abdomen Lower extremity edema with hyperemia of dorsal side of foot bilaterally onychomycosis, good dorsalis pedis pulses 2+ bilaterally, warm extremities, No acute respite distress no audible wheezing or stridor Irritable mood Patient has difficulty hearing as well Able to follow verbal commands , has mild dysarthria as well Data : 07/21/20 21:57 07/21/20 21:57 A&P Assessment and plan (1) Recent cerebrovascular accident: Status: Acute (2) Dysarthria and anarthria: Status: Acute (3) 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): Status: Acute (4) Cellulitis of foot: Status: Acute (5) Dysphagia due to recent cerebral infarction: Status: Acute (6) DVT (deep venous thrombosis): Status: Acute Additional A&P Information Subacute CVA MRI is pending Continue dual antiplatelet therapy along high-dose statins Dense hemiplegia will require SNF placement I will keep him on level 2 dysphagia diet Follow-up with PT/OT and speech evaluation He has 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 at level C2-C3 which does not correlate with the symptoms which are right-sided with facial droop, EKG sinus rhythm, will need 21-day Holter monitoring at the day of discharge, however it is further complicated with contraindication to be on anticoagulation secondary to falls and requiring blood transfusion in the past Left foot cellulitis and DVT Nonpurulent cellulitis I do believe he has underlying venous stasis dermatitis of bilateral feet, considering bilateral lower extremity swelling and recent DVT my concern for inferior vena cava obstruction is also present, previous documentation mention contraindication to IVC filter placement however I do not see any during my evaluation, will discuss with patient and cardiothoracic surgeon DVT as per recent venous Doppler Not a candidate to be on anticoagulation I would keep him on doxycycline for now And compression stockings Diet: Level 2 dysphagia diet Full code DVT prophylaxis Lovenox Disposition: SNF Attestations Medical Necessity Statement*: Pending PT/OT/speech evaluation will need SNF placement Time Spent in Patient Care: 30mins Coding Level of Care Code Acute Director Of Compensation for Chg Fwd Diagnoses Recent cerebrovascular accident Z86.73 Dysarthria and anarthria R47.1 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) Cellulitis of foot L03.119 Dysphagia due to recent cerebral infarction I69.391 DVT (deep venous thrombosis) I82.409
--- NOTE | 2020-07-22 14:06 | PC.CHAP ---
Pastoral Care Encounter/Spiritual Assessment Type of Contact [xx] Declined unhairer visit [] Patient/Family/Request visit [] Outpatient visit [] Follow-up visit [] Physician referral [] Code/Alert [] Routine visit [] Staff referral [] Actively dying [] Patient sleeping [] Family support [] [] Out of room [] Palliative care [] [] Receiving care in room [] Pre-surgical visit [] Trauma [] Long length of stay [] ICU visit [] Other: Relational/Emotional Strength [] Patient feels connected with others/family/visitors/staff [] Distress [] Loneliness/isolation [] Abandonment Spirituality of Patient [] Person of Jessy [] Attends Religion of their Jessy [] Believes in Prayer [] Reads Bible or Mosque materials [] There are Spiritual issues to be addressed Technical Fellow Interventions [] Prayer [] Active listening [] Non-anxious presence [] Spiritual/emotional support [] Crisis/trauma care [] Spiritual counseling [] Bereavement support [] Provided bereavement packet [] Provided Bible/devotional materials [] Provided toy/stuffed animal, coloring book to patient or family member [] Provided Communion [] Anointing/[place] [] Salvation [] Completed spiritual assessment [] Other: Impact on Illness or Injury [] Angry [] Fearful [] Anxious [] Often cries [] Exhaustion [] Unable to work [] Unable to attend voodoo [] Unable to walk/stand [] Unable to read [] Unable to drive [] Unable to eat/drink [] Unable to sleep [] Unable to be with family [] Patient intubated [] Other: Summary Patient not interested in unhairer or visit Time spent with patient 1 minute
--- NOTE | 2020-07-22 14:24 | USCV_ITS ---
Wing Vega Age: 84 Gender: M : 1935 Exam Date: 07/22/2020 15:38 Ordering Phys: Sneha Boothe MD Technologist: Nichelle Steward Exam Location: [facility] [place] Indication: EVAL FOR IVC CLOT Findings IVC APPEARS PATENT Conclusions Abdominal IVC is patent Hua Zaldivar MD (Electronically Signed) Final Date: 25 July 2020 09:07 S
[2020-07-22] MEDS: HYDROcodone-acetaminophen 10-325 mg Tablet 1 TAB PO (15:10)
[2020-07-22] MEDS: aspirin 81 mg EC Tablet PO (15:11)
[2020-07-22] MEDS: clopidogrel 75 mg Tablet PO (15:11)
[2020-07-22] MEDS: duloxetine 20 mg Capsule 40 MG PO (15:19)
[2020-07-22] MEDS: dexamethasone 4 mg Tablet PO ×2 (17:44→22:46)
[2020-07-22] MEDS: doxycycline 100 mg Tablet PO (17:44)
--- NOTE | 2020-07-22 22:19 | P.CONIM_ITS ---
Providers/Reason For Consult Consulting Physican/Specialty*: Jun Cassidy MD/Interventional cardiology Reason for Consult*: DVT/ Evaluation for IVC filter placement Requesting Physcian: Sneha Boothe MD Attending Physician: Sneha Boothe MD Primary Care Provider: Blas Jimenez MD History of Present Illness History of Present Illness 84 year old male with a past medical history of hypertension, DVT not on anticoagulation, recent history of CVA status post TPA, on day before discharge patient did develop recurrent right-sided heaviness and slurred speech, likely secondary to hypotensive episode, which resolved on discharge who presents to [facility] for feeling off, with slurring of his speech, right-sided facial droop, right upper and right lower extremity weakness, unsteadiness, trouble ambulating. Functional cardiology was consulted as patient has nonocclusive peroneal vein DVT and primary team wanted to get an assessment regarding placement of IVC filter. Patient has not been on anticoagulation secondary to previous significant bleeds requiring transfusions. Review of Systems Const: Denies: fever(s) Card: Denies: chest pain or palpitations Resp: Denies: dyspnea GI: Denies: abdominal pain Neuro: Reports: weakness in extremities, lack of coordination, difficulty walking, frequent falls and Slurred speech present; Denies: headache(s) Meds/Allergies Home Medications and Allergies Home Medications Medication Instructions Recorded Confirmed Last Taken Type duloxetine See Rx Instructions .ROUTE .COMPLEX 06/15/19 07/21/20 07/21/20 History 40 MG diclofenac sodium 1 % topical gel See Rx Instructions TOPICAL QID 09/21/19 07/21/20 Unknown Rx #100 gm testosterone cypionate 200 mg/mL See Rx Instructions .ROUTE 06/07/20 07/21/20 07/16/20 Rx intramuscular kit .COMPLEX #1 each fentanyl 50 mcg/hr transdermal 1 patch TRANSDERMAL Q72H 30 Days 07/04/20 07/21/20 07/21/20 Rx patch #10 each PUT NEW PATCH TODAY hydrocodone 10 mg-acetaminophen 1 tab PO Q8H PRN 30 Days #90 tab 07/04/20 07/21/20 07/21/20 17:00 Rx 325 mg tablet ferrous gluconate 324 mg PO QAM 07/17/20 07/21/20 07/21/20 History atorvastatin 40 mg PO BEDTIME 30 Days #30 tab 07/19/20 07/21/20 07/20/20 Rx Pepcid 20 mg PO BEDTIME 07/21/20 07/21/20 07/20/20 History aspirin 81 mg PO DAILY@07/21/20 07/21/20 07/21/20 09:00 History clopidogrel 75 mg PO DAILY@07/21/20 07/21/20 07/21/20 History furosemide 80 mg PO DAILY@07/21/20 07/21/20 07/21/20 History potassium chloride 10 meq PO DAILY@07/21/20 07/21/20 07/21/20 History cephalexin [Keflex] 500 mg PO BID 7 Days #14 cap 07/22/20 Unknown Rx doxycycline hyclate 100 mg PO BID 7 Days #14 cap 07/22/20 Unknown Rx Allergies Allergy/AdvReac Type Severity Reaction Status Date / Time iron dextran complex Allergy ALGY-Rash Verified 07/21/20 20:43 rosuvastatin [From Crestor] Allergy JOINT PAIN Verified 07/21/20 20:43 Current Medications Current Medications Generic Name Dose Route Start Last Admin Trade Name Freq PRN Reason Stop Dose Admin Hydrocodone Bitart/Acetaminophen 1 tab 07/22/20 05:48 07/22/20 15:10 Hydrocodone-Acetaminophen 10-325 Mg Tablet PO 1 tab Q8H PRN Administration pain Aspirin 81 mg 07/22/20 09:00 07/22/20 15:11 Aspirin 81 Mg Ec Tablet PO 81 mg DAILY@09 BONY Administration Clopidogrel Bisulfate 75 mg 07/22/20 09:00 07/22/20 15:11 Clopidogrel 75 Mg Tablet PO 75 mg DAILY@09 BONY Administration Dexamethasone 4 mg 07/22/20 17:00 07/22/20 17:44 Dexamethasone 4 Mg Tablet PO 4 mg QID BONY Administration Doxycycline Monohydrate 100 mg 07/22/20 18:00 07/22/20 17:44 Doxycycline 100 Mg Tablet PO 100 mg BID BONY Administration Protocol Duloxetine HCl 40 mg 07/22/20 09:00 07/22/20 15:19 Duloxetine 20 Mg Capsule PO 40 mg DAILY BONY Administration Enoxaparin Sodium 40 mg 07/22/20 06:00 07/22/20 06:45 Enoxaparin 40 Mg/0.4 Ml Syringe SUBCUT 40 mg Q24H BONY Administration Ferrous Gluconate 324 mg 07/22/20 06:00 07/22/20 06:19 Ferrous Gluconate 324 Mg Tablet PO Not Given QAM BONY Sodium Chloride 1,000 mls @ 75 mls/hr 07/22/20 05:48 07/22/20 06:45 Sodium Chloride 0.9% IV 75 mls/hr .[id number] BONY Administration PFSH Acute PFSH: Medical History Arthritis Depression DVT (deep venous thrombosis) Fluid retention in legs Hypertension Hypogonadism Quadriceps tendon rupture Urinary tract infection Warfarin-induced coagulopathy Surgical History History of arthroplasty of right knee S/P tonsillectomy DELETE S/P tonsillectomy and adenoidectomy Family History Father Cancer Lung cancer Social History Smoking and tobacco status: former smoker Alcohol intake: current Alcohol intake frequency: few times a month History of recent travel: No Vitals/I&O/Wt Last Vital Signs Temp 98.9 F 07/22/20 19:20 Pulse 84 07/22/20 19:20 Resp 18 07/22/20 19:20 BP 172/100 07/22/20 19:21 Pulse Ox 97 07/22/20 19:20 07/22/20 07/22/20 07/22/20 06:59 14:59 22:59 Output Total 400 / 400 175 / 575 Balance -400 / -400 -175 / -575 Weight last 48 hrs Weight 222 lb Physical Exam Narrative: EXAM NARRATIVE: Patient was examined at the bedside Right-sided facial droop S1, S2 sinus rhythm no murmur appreciated Pupils are equal in size Soft abdomen Lower extremity edema with hyperemia of dorsal side of foot bilaterally onychomycosis, good dorsalis pedis pulses 2+ bilaterally, warm extremities, Mild dysarthria A&P Assessment and plan (1) DVT (deep venous thrombosis): Status: Acute (2) Recent cerebrovascular accident: Status: Acute (3) History of pulmonary embolism: Status: Acute Patient has a nonocclusive peroneal vein DVT. Primary team he wanted to get an assessment from interventional cardiology regarding possibility of IVC filter placement. In my opinion he is not a good candidate to get IVC filter placement as his DVT is nonocclusive, chronic and not in a proximal pain (peroneal vein). If patient tolerates aspirin, can initiate that. Thank you for involving us with care of this patient. Please call with questions Coding Level of Care Code Acute Supervisor [employer] for Mary Jane Martino Diagnoses DVT (deep venous thrombosis) I82.409 Recent cerebrovascular accident Z86.73 History of pulmonary embolism Z86.711
[2020-07-22] MEDS: atorvastatin 40 mg Tablet PO (22:46)
[2020-07-22] MEDS: famotidine 20 mg Tablet PO (22:46)
[2020-07-23] VITALS (82 sets, daily range): BP systolic 121–210; BP diastolic 67–123; PULSE 65–123; RESP 8–40; TEMP 36.3–36.6; O2SAT 79–97
[2020-07-23] MEDS: heparin 5,000 unit/mL INJ 1 mL IV (01:32)
[2020-07-23] MEDS: heparin drip 25,000 UNIT/500 ML PREMIX 29 UNIT IV (01:34)
[2020-07-23] MEDS: metoprolol tartrate 1 mg/1 mL SDV 5 mL 5 MG IV (01:42)
[2020-07-23] MEDS: LORazepam 2 mg/mL INJ 1 mL 1 MG IVP (01:43)
[2020-07-23 01:54] LABS: Hematocrit 64.8 % (42.0-52.0); Hemoglobin 20.1 g/dL (11.7-16.6); Mean Corpuscular Hemoglobin 31.5 pg (28.0-34.0); Mean Corpuscular Volume 101.6 fL (80-94); Mean Platelet Volume 9.5 fL (7.4-10.4); Platelet Count 271 10^3/cmm (130-400); Red Blood Count 6.38 10^6/uL (4.1-5.3); White Blood Count 8.2 10^3/uL (4.0-10.0)
[2020-07-23 02:05] LABS: Alanine Aminotransferase 17 U/L (0-41); Albumin Level 4.3 g/dL (3.5-5.2); Alkaline Phosphatase 75 IU/L (40-130); Aspartate Amino Transferase 29 U/L (0-40); Chloride 100 mmol/L (98-107); Glucose 160 mg/dL (65-115); Potassium 4.5 mmol/L (3.5-5.1); Sodium 135 mmol/L (136-145)
[2020-07-23 02:07] LABS: Troponin(5th) Baseline 33 ng/L (0-15)
[2020-07-23 02:13] LABS: Absolute Neutrophil 7.5 10^3/cmm (1.4-6.5); Absolute Segmented Neutrophil 7.5 10/cmm (1.6-7.1); Eosinophils 0 %; Lymphocytes 8 %; Platelet Estimate Normal (Normal); Segmented Neutrophils 92 %; Total Cells Counted 100 (0-100)
[2020-07-23 02:20] LABS: Anion Gap 23.5 (5-19); Blood Urea Nitrogen 18 mg/dL (8-23); Calcium 8.9 mg/dL (8.5-10.5); Carbon Dioxide 16 mmol/L (22-29); Globulin 3.3 g/dL (1.3-4.6); Osmolality Calculated 285 mOsm/kg (285-295); Total Bilirubin 1.1 mg/dL (0.15-1.2); Total Protein 7.6 g/dL (6.6-8.7)
[2020-07-23] MEDS: haloperidol inj 5 mg/mL INJ 1 mL IM (02:41)
[2020-07-23] MEDS: morphine 4 mg/mL SDV 1 mL 1 MG IVP (03:18)
--- NOTE | 2020-07-23 03:41 | PM.EVENT ---
Event Note Event Note: At 11 PM, patient developed episodes of atrial fibrillation, A. fib with RVR, heart rates as high as 160, he was alert oriented x3, quite agitated, he ripped out his IV, requiring us to replace IV He received 20 mg of IV push Cardizem, which brought his heart rates down to the 120s, he had no complaints of chest pain, was very agitated, yelling and screaming at me and the nurses, was very restless.EKG at that time did show A. fib, heart rate 123, but did show ST elevations in leads II, 3, aVF with ST depressions in V3 through V6, he had no complaints of chest pain. This was roughly at 1:40 AM. I suspected that the ST elevations might be related to the A. fib, so I gave him 5 mg of IV metoprolol I gave him 1 mg of Ativan, and 1 milligram of morphine to help with his pain and help him settle down. Repeat EKG afterwards at roughly 1:45 AM showed a heart rate of 93, I cannot discern any ST-T wave changes, but does show nonspecific ST-T wave changes. His first troponin is 33, echocardiogram a few days ago showed mild LVH, EF of 66%, grade 1 out of 4 diastolic dysfunction. Currently he is on a Cardizem drip, in A. fib, I will start metoprolol 25 mg twice daily this morning, he is on aspirin, Plavix, statin, heparin drip, have spoken to Dr. Deng will see the patient in the morning.
--- NOTE | 2020-07-23 04:30 | ECG_ITS ---
[facility] Test Date: 2020-07-23 Pat Name: Wing Vega Department: Room: [facility] Gender: Male Manager Site: : 1935 Requested By: Mohit Aparicio Order Number: [id number] Jena MD: Rigo Deng M.D. Measurements Intervals [place] Rate: 77 P: 46 GA: 251 QRS: -74 QRSD: 181 T: -13 QT: 447 QTc: 506 Interpretive Statements SINUS RHYTHM WITH FIRST DEGREE AV BLOCK RIGHT BUNDLE BRANCH BLOCK [120+ ms QRS DURATION, UPRIGHT V1, 40+ ms S IN I/aVL/V4/V5/V6] LEFT ANTERIOR FASCICULAR BLOCK [QRS AXIS <= -45, QR IN I, RS IN II] Compared to ECG 07/17/2020 08:09:12 No significant changes Electronically Signed On 07-23-2020 19:41:28 BIOLOGY LABORATORY ASSISTANT by Rigo Deng M.D. [id number]
--- NOTE | 2020-07-23 04:47 | PC.NURSE ---
At approximately 2315 patient became restless requesting to be set up on the side of the bed. At approximately 2340 the patients telly showed afib with rvr physician contacted. Physician ordered 30mg of cardizem PO along with a heparin drip. Nursing staff entered room to find patients IV had become occluded and unusable. During this time patient's HR became elevated reading 160-170 with afib. Physician contacted at approximately 0027 to be updated about patient's current HR. Physician ordered 20mg of cardizem IVP. Physician made aware of the loss of access and the current on going attempts to establish access. Multiple IV attempts by multiple nursing staff were attempted with IV access being obtained in right wrist with a 22g. IV cardizem was given at 0110. Physician was contacted for update on patient status order for EKG obtained. EKG showed afib with rvr, physician made aware. Physician ordered Q3 EKG along with a troponin series. Physician ordered 5mg metoprolol once for continued afib with rvr. Patient was becoming agitated after multiple IV attempts. Physician ordered 1mg of ativan along with 1mg of morphine Heparin drip connected to IV access with patient being stable. morphine unable to be administered due to IV being pulled out by patient. Patient transferred to ICU room 5.
[2020-07-23 04:49] LABS: Troponin 5 2HR 30.86 ng/L (0-15)
[2020-07-23 04:56] LABS: Troponin 5 2HR Delta -2.14 ABS# (0-10)
--- NOTE | 2020-07-23 05:13 | PC.NURSE ---
ICU TRANSFER Patient brought to ICU at 0158. Patient is hypertensive, in atrial fibrillation with RVR, and is noticeably diaphoretic with clammy skin. Upon assessment, patient is alert and oriented x 4, but does have slurring of speech, right sided facial droop, flaccidity of right leg and severe weakness of right arm. This is left over from stroke on prior admission, deficits not worse. Patient complains of minor pain with pins and needles. Cardizem gtt started at 5 mg/hour, heparin and cardizem not compatible and patient had pulled out IV. Access established again in left wrist. Cardizem initiated.
--- NOTE | 2020-07-23 07:30 | ECG_ITS ---
[facility] Test Date: 2020-07-23 Pat Name: Wing Vega Department: Room: [facility]05 Gender: Male Instrumentation Technician: : 1935 Requested By: Mohit Aparicio Order Number: [id number] Jena MD: Rigo Deng M.D. Measurements Intervals [place] Rate: 74 P: 34 AR: 234 QRS: -73 QRSD: 170 T: -22 QT: 438 QTc: 489 Interpretive Statements SINUS RHYTHM WITH FIRST DEGREE AV BLOCK RIGHT BUNDLE BRANCH BLOCK [120+ ms QRS DURATION, UPRIGHT V1, 40+ ms S IN I/aVL/V4/V5/V6] LEFT ANTERIOR FASCICULAR BLOCK [QRS AXIS <= -45, QR IN I, RS IN II] Compared to ECG 07/23/2020 04:13:14 No significant changes Electronically Signed On 07-23-2020 19:42:28 BUILDING ADMIN by Rigo Deng M.D. [id number]
[2020-07-23] MEDS: aspirin 81 mg EC Tablet PO (07:36)
[2020-07-23] MEDS: sennosides-docusate Tablet 1 TAB PO (07:36)
[2020-07-23] MEDS: dexamethasone 4 mg Tablet PO ×4 (07:37→21:28)
[2020-07-23] MEDS: duloxetine 20 mg Capsule 40 MG PO (07:37)
[2020-07-23] MEDS: ferrous gluconate 324 mg Tablet PO (07:37)
[2020-07-23] MEDS: doxycycline 100 mg Tablet PO (07:37)
[2020-07-23] MEDS: metoprolol tartrate 25 mg Tablet PO ×2 (07:37→21:27)
[2020-07-23] MEDS: clopidogrel 75 mg Tablet PO (07:37)
[2020-07-23] MEDS: polyethylene glycol 3350 Pkt 17 gm PO (07:38)
--- NOTE | 2020-07-23 08:44 | PM.CONSULT ---
Providers/Reason For Consult Consulting Physican/Specialty*: GIGI Deng MD/cardiology Reason for Consult*: Patient with atrial fibrillation/CVA Attending Physician: Sneha Boothe MD Primary Care Provider: Blas Jimenez MD History of Present Illness History of Present Illness Wing Vega is a 84 year old male Meds/Allergies Home Medications and Allergies Home Medications Medication Instructions Recorded Confirmed Last Taken Type duloxetine See Rx Instructions .ROUTE .COMPLEX 06/15/19 07/21/20 07/21/20 History 40 MG diclofenac sodium 1 % topical gel See Rx Instructions TOPICAL QID 09/21/19 07/21/20 Unknown Rx #100 gm testosterone cypionate 200 mg/mL See Rx Instructions .ROUTE 06/07/20 07/21/20 07/16/20 Rx intramuscular kit .COMPLEX #1 each fentanyl 50 mcg/hr transdermal 1 patch TRANSDERMAL Q72H 30 Days 07/04/20 07/21/20 07/21/20 Rx patch #10 each PUT NEW PATCH TODAY hydrocodone 10 mg-acetaminophen 1 tab PO Q8H PRN 30 Days #90 tab 07/04/20 07/21/20 07/21/20 17:00 Rx 325 mg tablet ferrous gluconate 324 mg PO QAM 07/17/20 07/21/20 07/21/20 History atorvastatin 40 mg PO BEDTIME 30 Days #30 tab 07/19/20 07/21/20 07/20/20 Rx Pepcid 20 mg PO BEDTIME 07/21/20 07/21/20 07/20/20 History aspirin 81 mg PO DAILY@07/21/20 07/21/20 07/21/20 09:00 History clopidogrel 75 mg PO DAILY@07/21/20 07/21/20 07/21/20 History furosemide 80 mg PO DAILY@07/21/20 07/21/20 07/21/20 History potassium chloride 10 meq PO DAILY@07/21/20 07/21/20 07/21/20 History cephalexin [Keflex] 500 mg PO BID 7 Days #14 cap 07/22/20 Unknown Rx doxycycline hyclate 100 mg PO BID 7 Days #14 cap 07/22/20 Unknown Rx Allergies Allergy/AdvReac Type Severity Reaction Status Date / Time iron dextran complex Allergy ALGY-Rash Verified 07/21/20 20:43 rosuvastatin [From Crestor] Allergy JOINT PAIN Verified 07/21/20 20:43 Current Medications Current Medications Generic Name Dose Route Start Last Admin Trade Name Freq PRN Reason Stop Dose Admin Hydrocodone Bitart/Acetaminophen 1 tab 07/22/20 05:48 07/22/20 15:10 Hydrocodone-Acetaminophen 10-325 Mg Tablet PO 1 tab Q8H PRN Administration pain Aspirin 81 mg 07/22/20 09:00 07/23/20 07:36 Aspirin 81 Mg Ec Tablet PO 81 mg DAILY@09 BONY Administration Atorvastatin Calcium 40 mg 07/22/20 21:00 07/22/20 22:46 Atorvastatin 40 Mg Tablet PO 40 mg BEDTIME BONY Administration Clopidogrel Bisulfate 75 mg 07/22/20 09:00 07/23/20 07:37 Clopidogrel 75 Mg Tablet PO 75 mg DAILY@09 BONY Administration Dexamethasone 4 mg 07/22/20 17:00 07/23/20 07:37 Dexamethasone 4 Mg Tablet PO 4 mg QID BONY Administration Duloxetine HCl 40 mg 07/22/20 09:00 07/23/20 07:37 Duloxetine 20 Mg Capsule PO 40 mg DAILY BONY Administration Famotidine 20 mg 07/22/20 21:00 07/22/20 22:46 Famotidine 20 Mg Tablet PO 20 mg BEDTIME BONY Administration Ferrous Gluconate 324 mg 07/22/20 06:00 07/23/20 07:37 Ferrous Gluconate 324 Mg Tablet PO 324 mg QAM BONY Administration Sodium Chloride 1,000 mls @ 75 mls/hr 07/22/20 05:48 07/22/20 22:54 Sodium Chloride 0.9% IV 75 mls/hr .[id number] BONY Administration Diltiazem HCl 125 mg/ Sodium 125 mls @ 0 mls/hr 07/23/20 01:45 07/23/20 02:14 Chloride IV 5 mg/hr .Q0M BONY 5 mls/hr Administration Protocol Per Protocol Metoprolol Tartrate 25 mg 07/23/20 09:00 07/23/20 07:37 Metoprolol Tartrate 25 Mg Tablet PO 25 mg BID@0900,2100 BONY Administration Polyethylene Glycol 17 gm 07/23/20 09:00 07/23/20 07:38 Polyethylene Glycol 3350 Pkt 17 Gm PO 17 gm DAILY BONY Administration Senna/Docusate Sodium 1 tab 07/23/20 09:00 07/23/20 07:36 Sennosides-Docusate Tablet PO 1 tab DAILY BONY Administration PFSH Acute PFSH: Medical History Arthritis Depression DVT (deep venous thrombosis) Fluid retention in legs Hypertension Hypogonadism Quadriceps tendon rupture Urinary tract infection Warfarin-induced coagulopathy Surgical History History of arthroplasty of right knee S/P tonsillectomy DELETE S/P tonsillectomy and adenoidectomy Family History Father Cancer Lung cancer Social History Smoking and tobacco status: former smoker Alcohol intake: current Alcohol intake frequency: few times a month History of recent travel: No Vitals/I&O/Wt Last Vital Signs Temp 98.9 F 07/22/20 19:20 Pulse 78 07/23/20 07:50 Resp 15 07/23/20 07:50 BP 141/81 07/23/20 07:50 Pulse Ox 93 07/23/20 07:50 07/22/20 07/23/20 07/23/20 22:59 06:59 14:59 Intake Total 1000 / 1000 Output Total 325 / 725 175 / 900 Balance 675 / 275 -175 / 100 Weight last 48 hrs Weight 222 lb Data Labs: Other Labs: Laboratory Last Values WBC 8.2 10^3/uL (4.0- 10.0) 07/22/20 01:18 RBC 6.38 10^6/uL (4.1 -5.3) H 07/22/20 01:18 Hgb 20.1 g/dL (11.7-1 6.6) H 07/22/20 01:18 Hct 64.8 % (42.0-52.0 ) H 07/22/20 01:18 MCV 101.6 fL (80-94) H D 07/22/20 01:18 MCH 31.5 pg (28.0-34. 0) 07/22/20 01:18 MCHC 31.0 g/dL (30.0-3 6.0) D 07/22/20 01:18 RDW 14.0 % (12.1-15.1 ) 07/22/20 01:18 Plt Count 271 10^3/cmm (130 -400) 07/22/20 01:18 MPV 9.5 fL (7.4-10.4) 07/22/20 01:18 Neut % (Auto) 74.6 % 07/21/20 21:57 Lymph % (Auto) 14.6 % 07/21/20 21:57 [place] % (Auto) 9.3 % 07/21/20 21:57 Eos % (Auto) 0.6 % 07/21/20 21:57 Baso % (Auto) 0.5 % 07/21/20 21:57 Neut # (Auto) 6.17 10^3/uL (1.8 -7.7) 07/21/20 21:57 Lymph # (Auto) 1.2 10^3/uL (0.8- 4.8) 07/21/20 21:57 [place] # (Auto) 0.8 10^3/uL (0.2- 0.9) 07/21/20 21:57 Eos # (Auto) 0.1 10^3/uL (0.0- 0.8) 07/21/20 21:57 Baso # (Auto) 0.0 10^3/uL (0.0- 0.1) 07/21/20 21:57 Nucleated RBC % (a uto) 0 % 07/21/20 21:57 Total Counted 100 (0-100) 07/22/20 01:18 Atypical Lymphs % 0.0 % (0-5) 07/22/20 01:18 Absolute Neutrophi ls 7.5 10^3/cmm (1.4 -6.5) H 07/22/20 01:18 Segmented Neutroph ils 92 % 07/22/20 01:18 Abs Segm Neuts (Ma n) 7.5 10/cmm (1.6-7 .1) H 07/22/20 01:18 Band Neutrophils 0.0 % 07/22/20 01:18 Abs Band Neuts (Ma n) 0.0 10^3/cmm (0.0 -1.2) 07/22/20 01:18 Lymphocytes (Manua l) 8 % 07/22/20 01:18 Monocytes (Manual) 0.0 % 07/22/20 01:18 Absolute Monocytes 0.0 10^3/cmm (0.1 -0.6) L 07/22/20 01:18 Eosinophils (Manua l) 0 % 07/22/20 01:18 Absolute Eosinophi ls 0.0 10^3/cmm (0.0 -0.7) 07/22/20 01:18 Basophils (Manual) 0.0 % 07/22/20 01:18 Absolute Basophils 0.0 10^3/cmm (0.0 -0.2) 07/22/20 01:18 Nucleated RBCs # 0.0 /100WBC 07/21/20 21:57 Platelet Estimate Normal (Normal) 07/22/20 01:18 Sodium 135 mmol/L (136-1 45) L 07/23/20 01:18 Potassium 4.5 mmol/L (3.5-5 .1) 07/23/20 01:18 Chloride 100 mmol/L (98-10 7) 07/23/20 01:18 Carbon Dioxide 16 mmol/L (22-29) L 07/23/20 01:18 Anion Gap 23.5 (5-19) H 07/23/20 01:18 BUN 18 mg/dL (8-23) 07/23/20 01:18 Creatinine 0.8 mg/dL (0.7-1. 2) 07/23/20 01:18 GFR Calculation Not Reportable 07/23/20 01:18 Glucose 160 mg/dL (65-115 ) H 07/23/20 01:18 POC Glucose 145 mg/dL (70-110 ) H 07/21/20 20:03 Calculated Osmolal ity 285 mOsm/kg (285- 295) 07/23/20 01:18 Calcium 8.9 mg/dL (8.5-10 .5) 07/23/20 01:18 Total Bilirubin 1.1 mg/dL (0.15-1 .2) 07/23/20 01:18 AST 29 U/L (0-40) 07/23/20 01:18 ALT 17 U/L (0-41) 07/23/20 01:18 Alkaline Phosphata se 75 IU/L (40-130) 07/23/20 01:18 Troponin T Gen 5 n g/L Cancelled 07/23/20 01:18 Troponin T Baselin e 33 ng/L (0-15) H 07/23/20 01:18 Troponin T 120 Min [place] 30.86 ng/L (0-15) H 07/23/20 03:58 Delta Troponin T -2.14 ABS# (0-10) L 07/23/20 03:58 C-Reactive Protein 64.6 mg/L (0.0-4. 9) H 07/21/20 21:57 Total Protein 7.6 g/dL (6.6-8.7 ) 07/23/20 01:18 Albumin 4.3 g/dL (3.5-5.2 ) 07/23/20 01:18 Globulin 3.3 g/dL (1.3-4.6 ) 07/23/20 01:18 Coding Level of Care Code Acute Television Camera Operator for Mary Jane Martino
[2020-07-23] MEDS: enoxaparin 100 mg/mL Syringe SUBCUT (09:56)
--- NOTE | 2020-07-23 10:30 | ECG_ITS ---
[facility] Test Date: 2020-07-23 Pat Name: Wing Vega Department: Room: [facility] Gender: Male Director Of Cardiac Rehabilitation: : 1935 Requested By: Mohit Aparicio Order Number: [id number] Jena MD: Rigo Deng M.D. Measurements Intervals Bryant Rate: 68 P: 28 NE: 232 QRS: -64 QRSD: 181 T: -45 QT: 441 QTc: 470 Interpretive Statements SINUS RHYTHM WITH FIRST DEGREE AV BLOCK RIGHT BUNDLE BRANCH BLOCK [120+ ms QRS DURATION, UPRIGHT V1, 40+ ms S IN I/aVL/V4/V5/V6] LEFT ANTERIOR FASCICULAR BLOCK [QRS AXIS <= -45, QR IN I, RS IN II] POSSIBLE ANTERIOR MYOCARDIAL INFARCTION [30 ms Q WAVE IN V3/V4, OR R < 0.2 mV IN V4], OF INDETERMINATE AGE MODERATE T-WAVE ABNORMALITY, CONSIDER LATERAL ISCHEMIA [-0.1+ mV T WAVE IN I/aVL/V5/V6] MODERATE T-WAVE ABNORMALITY, CONSIDER INFERIOR ISCHEMIA [-0.1+ mV T WAVE IN II/aVF] Compared to ECG 07/23/2020 08:11:37 Myocardial infarct finding now present T-wave abnormality now present Possible ischemia now present Electronically Signed On 07-23-2020 19:43:16 SET UP TECHNICIAN by Rigo Deng M.D. [email or web address]
[2020-07-23 11:18] LABS: Troponin 5 6HR 24.48 ng/L (0-15)
--- NOTE | 2020-07-23 11:19 | P.PN_ITS ---
Subjective Subjective: Interval history: Overnight events noted, patient developed A. fib RVR, there was some concern of EKG changes overnight however on repeated EKGs there are no ST elevations he has deep S waves with right bundle branch block and minimal ST depression related to his tachyarrhythmia No active chest pain, shortness of breath or signs of heart failure He has been initiated on ACS protocol, troponin not significantly high negative delta For his atrial fibrillation with RVR I am recommending anticoagulation because his morbidity will definitely increase with another stroke, cardiology saw him yesterday and deemed him not a suitable candidate for IVC filter placement considering distal DVT which is patent without obstruction of flow Vitals/I&O/Wt Last Vital Signs Temp 98.9 F 07/22/20 19:20 Pulse 67 07/23/20 11:00 Resp 11 L 07/23/20 11:00 BP 122/71 07/23/20 11:00 Pulse Ox 93 07/23/20 11:00 07/22/20 07/23/20 07/23/20 22:59 06:59 14:59 Intake Total 1000 / 1000 220 / 220 Output Total 325 / 725 175 / 900 Balance 675 / 275 -175 / 100 220 / 220 Weight last 48 hrs Weight 100.698 kg Physical Exam Narrative: EXAM NARRATIVE: Patient was laying comfortably in his bed when I entered the room No active chest pain or shortness of breath was saturating well on room air No active signs of heart failure He has converted back to sinus rhythm, S1-S2 no murmur appreciated Abdomen soft nontender bowel sound present Right dense hemiplegia with facial droop Lower extremity swelling noted with cellulitis of left foot EOMI, PERRLA No worsening in his neurological status from yesterday No joint swelling Data : 07/22/20 01:18 07/23/20 01:18 A&P Assessment and plan (1) Dysphagia due to recent cerebral infarction: Status: Acute (2) Cellulitis of foot: Status: Acute (3) 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): Status: Acute (4) Dysarthria and anarthria: Status: Acute (5) DVT (deep venous thrombosis): Status: Acute (6) History of pulmonary embolism: Status: Acute (7) BPH (benign prostatic hyperplasia): Status: Acute Additional A&P Information Right-sided dense hemiplegia MRI revealed subacute ischemic event involving left baer radiata with mild cerebral edema without midline shift He has been started on Decadron 4 mg 4 times daily He will need rehab placement Currently on dysphagia diet Etiology most likely seems atrial fibrillation with acute embolic event Continue dual antiplatelet therapy and high-dose statin New onset A. fib Currently in sinus rhythm required IV medications overnight Considering high chads vas score previous history of PEs and active DVT and stable hemoglobin will discussed with the patient and his 1 more time regarding indication for Eliquis Currently on metoprolol with therapeutic Lovenox EKG changes are secondary to deep S waves and right bundle branch block with tachyarrhythmia negative delta troponin DVT Nonocclusive, immigration guard evaluated and for IVC filter placement and deemed him not a suitable candidate considering distal DVT and nonobstructing flow For left foot cellulitis continue Bactrim Dysphagia diet Full code DVT prophylaxis currently on therapeutic Lovenox dose Disposition: SNF Attestations Medical Necessity Statement*: Anticipating discharge to SNF once he is accepted Time Spent in Patient Care: 35mins Coding Level of Care Code Acute Electric Sign Assembler for Chg Fwd Diagnoses Dysphagia due to recent cerebral infarction I69.391 Cellulitis of foot L03.119 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) Dysarthria and anarthria R47.1 DVT (deep venous thrombosis) I82.409 History of pulmonary embolism Z86.711 BPH (benign prostatic hyperplasia) N40.0
[2020-07-23 11:46] LABS: Basophils % 0.3 %; Hematocrit 58.3 % (42.0-52.0); Lymphocytes # 0.3 10^3/uL (0.8-4.8); Lymphocytes % 3.6 %; Mean Corpuscular HGB Conc 32.6 g/dL (30.0-36.0); Mean Corpuscular Hemoglobin 31.7 pg (28.0-34.0); Mean Corpuscular Volume 97.2 fL (80-94); Mean Platelet Volume 10.5 fL (7.4-10.4); Monocytes % 0.5 %; Neutrophils # 7.18 10^3/uL (1.8-7.7); Neutrophils % 95.2 %; Nucleated Red Blood Cells % 0 %; Platelet Count 278 10^3/cmm (130-400); Red Cell Distribution Width 13.9 % (12.1-15.1); White Blood Count 7.5 10^3/uL (4.0-10.0)
[2020-07-23 11:58] LABS: Magnesium 1.9 mg/dL (1.7-2.3)
--- NOTE | 2020-07-23 12:01 | PC.NURSE ---
Dr Giron in room visting with pt and his , Halley.
[2020-07-23 13:30] LABS: Urine Appearance Cloudy (CLEAR); Urine Color Brown (Yellow); pH Urine 5 (5-7)
[2020-07-23 13:31] LABS: Add Urine Culture? Yes; Add Urine Microscopic? YES; Bacteria Urine 2+ /hpf; Bilirubin Urine 1+ (Negative); Blood Urine 3+ (Negative); Glucose Urine UA Norm (Normal); Ketones Urine 1+ (Negative); Leukocyte Esterase Urine 1+ (Negative); Nitrate Urine Negative (Negative); Protein Urine 3+ (Negative); RBC Urine TOO NUMEROUS TO CNT /hpf (0-2); Urobilinogen Urine 4 mg/dL (Negative); WBC Urine 15-25 /hpf (0-5)
--- NOTE | 2020-07-23 14:08 | PC.NURSE ---
Marcy noted to be an hour late after pt was transfered to [place]. customs entry writer called nurse to apologize and let her know that the medication was not given.
[2020-07-23] MEDS: HYDROcodone-acetaminophen 10-325 mg Tablet 1 TAB PO (15:34)
[2020-07-23 16:38] LABS: Glucose Point of Care 133 mg/dL (70-110)
[2020-07-23] MEDS: apixaban 5 mg Tablet PO (21:27)
[2020-07-23] MEDS: atorvastatin 40 mg Tablet PO (21:28)
[2020-07-24] VITALS (12 sets, daily range): BP systolic 149–197; BP diastolic 80–91; PULSE 64–82; RESP 17–18; TEMP 36.3–36.9; O2SAT 92–96
[2020-07-24] MEDS: apixaban 5 mg Tablet PO (08:53)
[2020-07-24] MEDS: metoprolol tartrate 25 mg Tablet PO ×2 (08:53→20:28)
[2020-07-24] MEDS: clopidogrel 75 mg Tablet PO (08:53)
[2020-07-24] MEDS: dexamethasone 4 mg Tablet PO ×4 (08:53→20:28)
[2020-07-24] MEDS: polyethylene glycol 3350 Pkt 17 gm PO (08:53)
[2020-07-24] MEDS: aspirin 81 mg EC Tablet PO (08:53)
[2020-07-24] MEDS: sennosides-docusate Tablet 1 TAB PO (08:53)
[2020-07-24 12:36] LABS: Anion Gap 14.1 (5-19); Blood Urea Nitrogen 25 mg/dL (8-23); Calcium 8.6 mg/dL (8.5-10.5); Carbon Dioxide 26 mmol/L (22-29); Chloride 98 mmol/L (98-107); Glucose 138 mg/dL (65-115); Osmolality Calculated 285 mOsm/kg (285-295); Potassium 4.1 mmol/L (3.5-5.1); Sodium 134 mmol/L (136-145)
[2020-07-24 12:37] LABS: Lactate (Lactic Acid level) 1.7 mmol/L (0.5-2.2)
--- NOTE | 2020-07-24 12:51 | P.PN_ITS ---
Subjective Subjective: Interval history: Patient was seen and examined this morning at the bedside, patient was complaining of constipation, No acute events overnight heart rate has been well controlled sinus rhythm hemoglobin stable Vitals/I&O/Wt Last Vital Signs Temp 97.4 F L 07/24/20 11:41 Pulse 64 07/24/20 11:41 Resp 18 07/24/20 11:41 BP 165/82 07/24/20 11:41 Pulse Ox 96 07/24/20 11:41 07/23/20 07/24/20 07/24/20 21:59 06:59 14:59 Intake Total 240 / 240 Output Total Balance 240 / 240 Physical Exam Narrative: EXAM NARRATIVE: Patient was laying comfortably in his bed in semi- Menjivar position He does get frustrated with his dysarthria Right dense hemiplegia with facial droop with no improvement in last 48 hours S1, S2 sinus rhythm no murmur appreciated No acute respite distress no audible wheezing or rhonchi Abdomen distended bowel sound present Lower extremity no edema gangrene ulcer Left knee laceration noted no signs of Irritable mood No joint swelling Data : 07/23/20 02:20 07/24/20 12:08 A&P Assessment and plan (1) Recent cerebrovascular accident: Status: Acute (2) Dysarthria and anarthria: Status: Acute (3) 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): Status: Acute (4) Cellulitis of foot: Status: Acute (5) Dysphagia due to recent cerebral infarction: Status: Acute (6) DVT (deep venous thrombosis): Status: Acute Additional A&P Information Subacute embolic stroke Currently patient is on aspirin, Plavix atorvastatin and Eliquis A. fib RVR noticed yesterday which has resolved MRI showing left baer radiata dense lesion with cerebral edema currently he is on Decadron No acute worsening of symptoms Will need SNF placement Constipation: Added senna S and bowel regimen Cellulitis of foot improving I will continue p.o. MRSA coverage for next 3 days, no sign of sepsis, he has stayed afebrile DVT: Nonocclusive, venous duplex was done on 07/18/2020 which showed peroneal nonocclusive DVT, he was not put on Eliquis loading dose, it has been 1 week since the diagnosis for now I will start Eliquis 10 twice daily Dysphagia diet Full code Awaiting placement to SNF Attestations Medical Necessity Statement*: Awaiting placement to SNF Time Spent in Patient Care: 30mins Coding Level of Care Code Acute Certified Neurodiagnostic Technologist for Chg Fwd Diagnoses Recent cerebrovascular accident Z86.73 Dysarthria and anarthria R47.1 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) Cellulitis of foot L03.119 Dysphagia due to recent cerebral infarction I69.391 DVT (deep venous thrombosis) I82.409
[2020-07-24] MEDS: sodium chloride 0.9% 1,000 ML 30 ML IV (14:48)
[2020-07-24] MEDS: atorvastatin 40 mg Tablet PO (20:28)
[2020-07-24] MEDS: apixaban 5 mg Tablet 10 MG PO (20:28)
[2020-07-24] MEDS: hyDROXYzine 25 mg Capsule PO (23:00)
[2020-07-25] VITALS (8 sets, daily range): BP systolic 179–220; BP diastolic 63–130; PULSE 79–89; RESP 18–19; TEMP 36.6–37.1; O2SAT 95–98
[2020-07-25] MEDS: HYDROcodone-acetaminophen 10-325 mg Tablet 1 TAB PO (01:20)
[2020-07-25] MEDS: labetalol 5 mg/mL SDV 20mL 10 MG IVP (05:03)
[2020-07-25] MEDS: amlodipine 10 mg Tablet PO ×2 (05:04→08:47)
--- NOTE | 2020-07-25 08:04 | XR_ITS ---
WS: [id number] XR elbow RT 2V [id number] REASON FOR EXAM: fall FINDINGS: Suboptimal positioning of the lateral view of the right elbow. No fracture or dislocation is identified. No soft tissue abnormality is noted. XR/XR elbow RT 2V [id number] IMPRESSION: No acute abnormality identified however the lateral positioning is not optimal and a follow-up examination in 8-10 days is recommended.
--- NOTE | 2020-07-25 08:04 | XR_ITS ---
WS: [id number] XR knee RT 1-2V [id number] REASON FOR EXAM: fall FINDINGS: Right total knee arthroplasty. Prosthetic components are in proper position and alignment. No bony ab normality identified. Specifically no periprosthetic fracture. No soft tissue abnormality. XR/XR knee RT 1-2V 11569 IMPRESSION: Total right knee arthroplasty with no acute abnormality identified.
--- NOTE | 2020-07-25 08:04 | XR_ITS ---
WS: [id number] XR hand RT 2V [id number] REASON FOR EXAM: fall FINDINGS: No fracture or dislocation. Mild narrowing of the MCP and interphalangeal joints and the symmetric fashion with subchondral scler osis and mild marginal spurring. No erosions. Mild lateral subluxation of the second and third MCP joints. Calcification in the triangular cartilage of the wrist. Mild narrowing of the radial carpal joints. XR/XR hand RT 2V [id number] IMPRESSION: No acute abnormality. Osteoarthritis of the hand and wrist as above.
[2020-07-25] MEDS: clopidogrel 75 mg Tablet PO (08:47)
[2020-07-25] MEDS: metoprolol tartrate 25 mg Tablet PO (08:47)
[2020-07-25] MEDS: polyethylene glycol 3350 Pkt 17 gm PO (08:47)
[2020-07-25] MEDS: aspirin 81 mg EC Tablet PO (08:47)
[2020-07-25] MEDS: dexamethasone 4 mg Tablet PO ×2 (08:47→12:22)
[2020-07-25] MEDS: sennosides-docusate Tablet 1 TAB PO (08:47)
[2020-07-25] MEDS: apixaban 5 mg Tablet 10 MG PO (08:47)
--- NOTE | 2020-07-25 12:13 | P.DS_ITS ---
Discharge Providers Date of Admission: 07/22/20 16:34 Date of Discharge: July 25, 2020 Attending Provider at Admission: Mohit Aparicio MD Attending Provider at Discharge: Sneha Boothe MD Primary Care Provider: Blas Jimenez MD Diagnoses at Discharge Discharge Diagnosis (1) DVT (deep venous thrombosis): Status: Acute (2) Recent cerebrovascular accident: Status: Acute (3) History of pulmonary embolism: Status: Acute Reason for Visit Reason for Visit: slurred speech Hospital Course Hospital Course Wing Vega is a 84 year old male with a past medical history of hyp ertension, DVT not on anticoagulation, recent history of CVA status post TPA, on day before discharge patient did develop recurrent right-sided heaviness and slurred speech, likely secondary to hypotensive episode, which resolved on discharge who presents to [facility] for feeling off, with slurring of his speech, right-sided facial droop, right upper and right lower extremity weakness, unsteadiness, trouble ambulating. Patient has been taking aspirin, Plavix, statin, has not resumed any of his hypertensive medications. His NIH stroke scale on examination was 5. During my examination, he had right upper extremity strength 3 out of 5, right lower extremity strength 3 out of 5, right facial droop, productive aphasia. He had a CT of his head which showed gliosis along the anterior margin of the right lateral ventricle, no vascular insult, had a CTA of the head and neck which showed high-grade stenosis of both internal carotid arteries at C2 and C3 segment. EKG did not show any A. fib events these findings were discussed with neurologist at [facility], Dr. Nascimento, who favored completion of existing CVA as etiology of his recurrent symptoms instead of a new process, recommended readmission for monitoring, MRI MR/MR head wo con* [id number] IMPRESSION: 1. Restricted diffusion within the left baer radiata extending into the basal ganglia consistent with acute ischemia described above. Mild associated edema. 2. No significant mass effect or midline shift. 3. Moderate chronic emphysematous changes. Moderate parenchymal volume loss. 4. Chronic lacunar infarcts in the periventricular white matter. 5. Tiny chronic focus of hemosiderin in the right thalamus Patient presented with dense hemiplegia of right side with right-sided facial droop, MRI findings mentioned above. During his hospitalization he started experiencing palpitations, A. fib RVR was diagnosed after discussion with the family and the patient both agreed with Eliquis which was started a loading dose because of recent DVT as well. Previously patient was on Coumadin and experienced hematoma and anemia for which she required blood transfusion, today when he was trying to position himself while he was sitting at the bedside he sustained a fall, we did hand and knee x- ray which did not show any fracture. He has hematoma and petechia of left arm, hemoglobin is stable at 19 he is hemodynamically stable Eliquis is initiated to prevent another stroke which could result in debilitated bedbound scenario. Risk of falls should be minimized with supervised ambulation and physical therapy. However despite that if he is experiencing recurrent falls please hold Eliquis Continue Plavix along Eliquis and hold aspirin as dual antiplatelet therapy with Eliquis puts patients at risk of GI bleed. Continue high-dose statins, daily PT/OT and speech therapy. He is getting dysphagia diet no aspiration noticed throughout hospitalization. He has peroneal vein DVT no obstructing flow was noticed, cardiology was also consulted who did not recommend any intervention such as IVC filter. Inferior vena cava is patent. He was treated antibiotics for MRSA coverage for left foot cellulitis. Physical Exam Narrative: EXAM NARRATIVE: Patient was sitting comfortably in his bed eating breakfast No aspiration S1, S2 sinus rhythm No signs of heart failure Bilateral lower extremity mild edema cellulitis has improved Laceration noticed of knees bilaterally Petechiae of left arm Right dense hemiplegia with right-sided facial droop, slurred speech Irritable mood EOMI, PERRLA Discharge Data Data Completed and Pending: Completed Studies During Hospitalization Category Date Time Status CT angio headneck * 18433/09132 Urge nt Cat Scan 07/21/20 23:[address] head wo con* 7 0450 Urgent Cat Scan 07/21/20 20:12 Completed XR elbow RT 2V 73 070 Urgent Exams 07/25/20 08:04 Completed XR hand RT 2V 731 20 Urgent Exams 07/25/20 08:04 Completed XR knee RT 1-2V 7 3640 Urgent Exams 07/25/20 08:04 Completed MR head wo con* 7 5551 Routine MRI 07/22/20 05:48 Completed CV ankle brachial index 92192 Urgen t Ultrasound 07/21/20 20:50 Completed CV duplex IVC 939 78 Urgent Ultrasound 07/22/20 14:24 [place] [id number] Urgent Ultrasound 07/21/20 20:48 Completed Pending at discharge Category Date Time Status Urine Culture Rou von Lab 07/23/20 12:00 Results MR head wo con* 7 0551 Routine MRI 07/22/20 12:30 Unverified Labs from last 24 hours 07/24/20 07/24/20 12:08 12:08 Sodium 134 L Potassium 4.1 Chloride 98 Carbon Dioxide 26 Anion Gap 14.1 BUN 25 H Creatinine 0.9 GFR Calculation Not Reportable Glucose 138 H Calculated Osmolal ity 285 Lactate 1.7 Calcium 8.6 Vitals: Last Vital Signs Temp 98.8 F 07/25/20 11:32 Pulse 86 07/25/20 11:32 Resp 18 07/25/20 11:32 BP 179/63 07/25/20 11:32 Pulse Ox 97 07/25/20 11:32 Discharge Plan Discharge Patient Disposition: Xfer SNF Condition: Fair Prescriptions: New polyethylene glycol 3350 17 gram Powder In Packet 17 g PO DAILY 30 Days Qty: 30 RF: 0 metoprolol tartrate 25 mg Tablet 25 mg PO BID@0900,2100 30 Days Qty: 60 RF: 0 sennosides-docusate sodium [Stool Softener-Laxative] 8.6-50 mg Tablet 1 tab PO DAILY 30 Days Qty: 30 RF: 0 furosemide [Lasix] 20 mg tablet 20 mg PO DAILY Qty: 30 RF: 0 Eliquis 5 mg tablet 5 mg PO BID 30 Days Qty: 60 RF: 0 Continued fentanyl 50 mcg/hr patch 72 hour 1 patch transdermal Q72H 30 Days Qty: 10 RF: 0 hydrocodone-acetaminophen 10-325 mg tablet 1 tab PO Q8H PRN (Reason: pain) 30 Days Qty: 90 RF: 0 diclofenac sodium 1 % gel See Rx Instructions topical QID Qty: 100 RF: 8 duloxetine 40 mg Capsule, Delayed Rel Sprinkle See Rx Instructions .ROUTE .COMPLEX RF: 0 potassium chloride 10 mEq capsule, extended release 10 meq PO DAILY@09 RF: 0 clopidogrel 75 mg tablet 75 mg PO DAILY@09 RF: 0 Pepcid 20 mg tablet 20 mg PO BEDTIME RF: 0 ferrous gluconate 324 mg (37.5 mg iron) tablet 324 mg PO QAM RF: 0 atorvastatin 40 mg Tablet 40 mg PO BEDTIME 30 Days Qty: 30 RF: 0 Discontinued testosterone cypionate 200 mg/mL kit See Rx Instructions .ROUTE .COMPLEX Qty: 1 RF: 5 aspirin 81 mg tablet,delayed release (DR/EC) 81 mg PO DAILY@09 RF: 0 furosemide 80 mg tablet 80 mg PO DAILY@09 RF: 0 Discharge Orders: Discharge Order (Routine); Ordered 07/25/20 Ordered By: Sneha Boothe Referrals: [facility] [Outside] Jennifer Stover MD [Physician] - 08/02/20 11:00 am Blas Jimenez MD [Primary Care Provider] - 08/08/20 3:00 pm Phoebe Larsen FNP [Nurse Practitioner] - 08/02/20 1:30 pm Discharge Diet: As Directed Discharge Activity: Increase activity as tolerated Patient Instructions: Cephalexin (By mouth), Doxycycline (By mouth), Cellulitis (ED), Self Care Measures After a Stroke (ED) Activity Restrictions/Additional Instructions: You will take Eliquis 10 mg for next 5 days twice a day and then 5 mg twice a day afterwards In case of worsening of petechia purpura or recurrent falls you may discontinue Eliquis I am adding Lasix for lower extremity swelling with potassium supplementation you can hold if systolic blood pressure less than 90 mmHg Take MiraLAX and senna S daily for constipation Your diet is pur?ed thickened diet Your cellulitis has improved with Bactrim you do not need to continue antibiotic s at this point In case your heart rate becomes irregular and fast you can increase extra dose of metoprolol to make it 50 mg twice a day. You can hold it as well if systolic blood pressure less than 90 mmHg For now you will stay on Eliquis and Plavix along atorvastatin for your ischemic/embolic stroke I wish you good luck for your recovery. Discharge Attestations Time Spent in Discharge Care*: less than 30 min Status at Discharge: Cognitive status at discharge: cognitively intact , Behavioral status at discharge: cooperative , Quality Metrics Clinical Quality Measures During this hospital stay, did patient experience: Stroke Contraindication to Antithrombotic: Antithrombotic prescribed Contraindication to Anticoagulation: Anticoagulation prescribed Contraindication to Statin: Statin prescribed Contraindication to tPA: Treatment not indicated Coding Level of Care Code Acute [facility] note Diagnoses DVT (deep venous thrombosis) I82.409 Recent cerebrovascular accident Z86.73 History of pulmonary embolism Z86.711
--- NOTE | 2020-07-25 12:20 | DCPLANNER ---
Pg 2 of IM updated, reviewed with pt and spouse. No questions, copy provided.
--- NOTE | 2020-07-25 14:31 | PC.NURSE ---
Patient discharged to intermediate at 14:10. Left via transport in a wheelchair. Patient did not have IV access in place at discharge.
== END 2020-07-25 14:15 | disposition skilled nursing facility (03) | DRG 300 ==
LOC: ER 07-22 01:35 → MEDSURG 07-22 10:01 → ICU 07-23 02:01 → MEDSURG 07-23 13:53
PROVIDERS: Admitting Provider Family Medicine; Emergency Provider Family Medicine; PCP Internal Medicine; Visit Provider Internal Medicine
DX: I82.451 Acute embolism and thrombosis of right peroneal vein (principal); I69.351 Hemiplegia and hemiparesis following cerebral infarction affecting right dominant side; L03.116 Cellulitis of left lower limb; I69.322 Dysarthria following cerebral infarction; I69.320 Aphasia following cerebral infarction; I69.392 Facial weakness following cerebral infarction; I69.398 Other sequelae of cerebral infarction; R26.89 Other abnormalities of gait and mobility; G89.29 Other chronic pain; R29.6 Repeated falls; I10 Essential (primary) hypertension; Z91.14 Patient's other noncompliance with medication regimen; I65.23 Occlusion and stenosis of bilateral carotid arteries; M19.90 Unspecified osteoarthritis, unspecified site; F32.9 Major depressive disorder, single episode, unspecified; E29.1 Testicular hypofunction; Z87.440 Personal history of urinary (tract) infections; Z96.651 Presence of right artificial knee joint; Z87.891 Personal history of nicotine dependence; Z86.711 Personal history of pulmonary embolism; Z79.02 Long term (current) use of antithrombotics/antiplatelets; Z79.891 Long term (current) use of opiate analgesic; S40.022A Contusion of left upper arm, initial encounter; X58.XXXA Exposure to other specified factors, initial encounter; K59.00 Constipation, unspecified; N40.0 Benign prostatic hyperplasia without lower urinary tract symptoms; E86.0 Dehydration; D75.1 Secondary polycythemia; I48.0 Paroxysmal atrial fibrillation
CPT/HCPCS: 36415; 36416; 70450; 70496; 70498; 70551; 73070; 73120; 73560; 80048; 80053; 81001; 82962; 83605; 83735; 84484; 85007; 85025; 85027; 86140; 87077; 87086; 87186; 92507; 92523; 92526; 92610; 93005; 93922; 93971; 93978; 94664; 96365; 96372; 96375; 97110; 97112; 97161; 97167; 97530; 97535; 99285; G0378; J1630; J1644; J1650; J2060; J2270; J3370; J3490; J7030; J8540; Q9967

== ENCOUNTER 2022-03-27 10:20 | Emergency (ER) | payer MEDICARE, OTHER, SELFPAY ==
[2022-03-27 10:21] VITALS: BP 144/82; PULSE 81; RESP 17; TEMP 36.8; O2SAT 96; BMI 35.4
--- NOTE | 2022-03-27 10:29 | PC.NURSE ---
Per EMS, pt woke up with left sided abdominal pain. Pt is from [facility], nurse there gave pt pain medications which resolved pt's pain. Review of [place] paperwork show pt received hydrocodone at 0700 and tylenol at 0830. Pt denies current pain, does report nausea and vomiting.
--- NOTE | 2022-03-27 10:53 | W.ED.ABDPA2 ---
HPI - Abdominal Pain General: Chief Complaint: Abdominal Pain Stated Complaint: ABO PAIN, LEFT LOWER QUAD Time Seen by Provider: 03/27/22 10:33 History of Present Illness: 86-year-old male presents emergency room with complaint of left lower quadrant pain that began suddenly this morning lasted for a few minutes and then resolved. Patient states he did have a bowel movement this morning but did not really get relief that he would have expected from and when he arrives here his pain is completely resolved he did vomit times once there is no reported fever no hematochezia or melena. He is currently in the longterm because of a recent stroke. MD elicited complaint: abdominal pain Pertinent past history: constipation Onset (ago): hour(s) Pain Consistency: constant Location: LLQ Severity: moderate Quality: cramping Radiation: none Exacerbating factors: nothing Relieving factors: nothing Associated Symptoms: Reports bloating, constipation, GI cramping, nausea and poor appetite; Denies anorexia, belching, change in bowel habits, change in stool character, chills, coffee ground emesis, diarrhea, dyspepsia, dysuria, excessive flatus, fever(s), heartburn, hematochezia, hematuria, hematemesis, fecal incontinence, loose stools, melena, syncope and vomiting Review of Systems Const: Denies: fever(s) or chills ENMT: Denies: throat pain, ear or mastoid pain, nasal discharge or nasal congestion Card: Denies: syncope Resp: Denies: dyspnea, productive cough or non-productive cough GI: Reports: abdominal pain, nausea, constipation, bloating and GI cramping; Denies: vomiting, hematemesis, coffee ground emesis, heartburn, diarrhea, belching, excessive flatus, fecal incontinence, change in bowel habits, change in stool character, hematochezia or melena : Denies: dysuria or hematuria Skin/Breast: Denies: rash or pruritus PFSH ED PFSH: Medical History Arthritis BPH (benign prostatic hyperplasia) Depression Diastolic heart failure DVT (deep venous thrombosis) DVT (deep venous thrombosis) Dysarthria and anarthria Dysphagia due to recent cerebral infarction 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) Fluid retention in legs History of pulmonary embolism Hypertension Hypogonadism Quadriceps tendon rupture Recent cerebrovascular accident Urinary tract infection Warfarin-induced coagulopathy Surgical History History of arthroplasty of right knee S/P tonsillectomy DELETE S/P tonsillectomy and adenoidectomy Family History Father Cancer Lung cancer Social History Smoking and tobacco status: former smoker Alcohol intake: current Alcohol intake frequency: few times a month History of recent travel: No Physical Exam Const: GENERAL APPEARANCE: cooperative and comfortable ORIENTATION/CONSCIOUSNESS: Yes awake, Yes oriented to person, Yes oriented to place and Yes oriented to time HENMT: COMMON NORMALS: normocephalic, atraumatic and hearing grossly normal bilaterally HEAD & SCALP: normocephalic and atraumatic Resp: COMMON NORMALS: normal respiratory effort, No retractions, No use of accessory muscles and clear to auscultation bilaterally AUSCULTATION: clear to auscultation bilaterally Cardio: COMMON NORMALS: regular rate, regular rhythm and No murmurs present (Cardio) RATE: regular rate RHYTHM: regular rhythm GI: COMMON NORMALS: Soft to palpation and No hepatosplenomegaly present AUSCULTATION: Yes normoactive bowel sounds PALPATION: Yes Soft to palpation, No Tenderness to palpation present (GI), No Guarding due to palpation present (GI) and Yes No hepatosplenomegaly present Extremity: COMMON NORMALS: normal to inspection, capillary refill normal, no clubbing, cyanosis or edema, no calf tenderness and no pedal edema Neuro: SENSORIUM/ORIENTATION: Yes oriented to person, Yes oriented to place and Yes oriented to time Skin: COMMON NORMALS: no rashes or lesions noted GENERAL SKIN EXAM: no rashes or lesions noted Course Vital Signs: Vital signs: Vital Signs Temperature 98.2 F 03/27/22 10:21 Pulse Rate 78 03/27/22 13:22 Respiratory Rate 17 03/27/22 10:21 Blood Pressure 150/77 03/27/22 13:22 Pulse Oximetry 96 03/27/22 13:22 Oxygen Delivery Me thod 03/27/22 13:22 MDM - Abdominal Pain Medical Decision Making The time I seen the patient his symptoms had completely resolved. He is feeling much better. He states he has no pain at all we went ahead and just check basic labs on him he does have a cystitis and had some predominant hematuria. Based on that and the flank pain he presented we did a CT for renal protocol. It shows a right sided UPJ stone to 14 mm she has symptoms were on the left. He has some hydronephrosis renal function is normal. When I talked the patient about it he does not really want to have anything done at this point. Its not causing any symptoms in his initial pain that he came in with is resolved. We will treat his cystitis we will discharge him home I talked to the urologist and to his primary care doctor they are aware of this we are not making arrangements to see urology unless he has further symptoms or change his mind and wishes to pursue something regarding this. Medical Records I reviewed the patient's medical records. Lab Data I reviewed the patient's lab results. : 03/27/22 11:02 03/27/22 11:02 Labs/Radiology: Radiology Impressions Abdomen/Pelvis CT 03/27/22 12:11 IMPRESSION: 1. No hydronephrosis in the LEFT kidney. No obstructing LEFT renal or ureteral calculi. 2. Obstructing 14 mm calculus RIGHT UPJ with mild to moderate hydronephrosis and surrounding inflammatory stranding. 3. Prominent prostate measuring 4.7 CCM. 4. Cholelithiasis. 5. Sclerotic changes in the femoral heads bilaterally suspicious for avascular necrosis progressed since 2017. 6. No other acute findings. Notified David Goff DO at 03/27/2022 1:00 PM. Laboratory Results WBC 10.3 10^3/uL (4.0-10.0) H 03/27/22 11:02 RBC 4.97 10^6/uL (4.1-5.3) 03/27/22 11:02 Hgb 15.5 g/dL (11.7-16.6) 03/27/22 11:02 Hct 48.0 % (42.0-52.0) 03/27/22 11:02 MCV 96.6 fl (80-94) H 03/27/22 11:02 MCH 31.2 pg (28.0-34.0) 03/27/22 11:02 MCHC 32.3 g/dL (30.0-36.0) 03/27/22 11:02 RDW 13.4 % (12.1-15.1) 03/27/22 11:02 Plt Count 163 10^3/cmm (130-400) 03/27/22 11:02 MPV 9.3 fL (7.4-10.4) 03/27/22 11:02 Neut % (Auto) 89.5 % 03/27/22 11:02 Lymph % (Auto) 4.8 % 03/27/22 11:02 [place] % (Auto) 4.6 % 03/27/22 11:02 Eos % (Auto) 0.2 % 03/27/22 11:02 Baso % (Auto) 0.4 % 03/27/22 11:02 Neut # (Auto) 9.21 10^3/uL (1.8-7.7) H 03/27/22 11:02 Lymph # (Auto) 0.5 10^3/uL (0.8-4.8) L 03/27/22 11:02 [place] # (Auto) 0.5 10^3/uL (0.2-0.9) 03/27/22 11:02 Eos # (Auto) 0.0 10^3/uL (0.0-0.8) 03/27/22 11:02 Baso # (Auto) 0.0 10^3/uL (0.0-0.1) 03/27/22 11:02 Nucleated RBC % (auto) 0 % 03/27/22 11:02 Nucleated RBCs # 0.0 /100WBC 03/27/22 11:02 Sodium 134 mmol/L (136-145) L 03/27/22 11:02 Potassium 4.7 mmol/L (3.5-5.1) 03/27/22 11:02 Chloride 98 mmol/L (98-107) 03/27/22 11:02 Carbon Dioxide 30 mmol/L (22-29) H 03/27/22 11:02 Anion Gap 10.7 (5-19) 03/27/22 11:02 BUN 24 mg/dL (8-23) H 03/27/22 11:02 Creatinine 0.8 mg/dL (0.7-1.2) 03/27/22 11:02 GFR Calculation Not Reportable 03/27/22 11:02 Glucose 131 mg/dL (65-115) H 03/27/22 11:02 Calculated Osmolality 284 mOsm/kg (285-295) L 03/27/22 11:02 Calcium 8.8 mg/dL (8.5-10.5) 03/27/22 11:02 Total Bilirubin 0.4 mg/dL (0.15-1.2) 03/27/22 11:02 AST 15 U/L (0-40) 03/27/22 11:02 ALT 11 U/L (0-41) 03/27/22 11:02 Alkaline Phosphatase 95 U/L (40-130) 03/27/22 11:02 Total Protein 6.4 g/dL (6.6-8.7) L 03/27/22 11:02 Albumin 3.6 g/dL (3.5-5.2) 03/27/22 11:02 Globulin 2.8 g/dL (1.3-4.6) 03/27/22 11:02 Lipase 8 U/L (13-60) L 03/27/22 11:02 Urine Color Yellow (Yellow) 03/27/22 11:31 Urine Appearance Cloudy (CLEAR) A 03/27/22 11:31 Urine pH 7 (5-7) 03/27/22 11:31 Ur Specific [place] 1.005 (1.005-1.030) 03/27/22 11:31 Urine Protein 1+ (Negative) H 03/27/22 11:31 Urine Glucose (UA) Norm (Normal) 03/27/22 11:31 Urine Ketones Negative (Negative) 03/27/22 11:31 Urine Blood 3+ (Negative) H 03/27/22 11:31 Urine Nitrate Positive (Negative) H 03/27/22 11:31 Urine Bilirubin Neg (Negative) 03/27/22 11:31 Urine Urobilinogen Neg mg/dL (Negative) 03/27/22 11:31 Ur Leukocyte Esterase 2+ (Negative) H 03/27/22 11:31 Urine RBC 50-80 /hpf (0-2) H 03/27/22 11:31 Urine WBC 25-40 /hpf (0-5) H 03/27/22 11:31 Ur Squamous Epith Cells Rare /hpf (0-5) 03/27/22 11:31 Amorphous Sediment Not Reportable 03/27/22 11:31 Urine Bacteria Trace /hpf (NONE) 03/27/22 11:31 Discharge Plan Discharge Patient Disposition: Home Clinical Impression: Urinary tract infection, Right nephrolithiasis Condition: Stable Prescriptions: New Cipro 500 mg tablet 500 mg PO BID Qty: 14 0RF No Action bisacodyl [Dulcolax (bisacodyl)] 10 mg suppository 10 mg MA DAILY PRN (Reason: Constipation) magnesium hydroxide [Milk of Magnesia] 400 mg/5 mL suspension 5 ml PO DAILY PRN (Reason: Constipation) naloxone 0.4 mg/mL solution 0.4 mg IM Q3M PRN (Reason: Opioid Overdose) Rx Instructions: NTExceed 10 mg total dose/episode fentanyl 50 mcg/hr patch 72 hour 1 patch transdermal Q72H 30 Days Qty: 10 0RF diclofenac sodium 1 % gel See Rx Instructions topical QID Qty: 100 8RF Rx Instructions: AAA topical four times daily PRN hydrocodone-acetaminophen 10-325 mg tablet 1 tab PO Q6H PRN (Reason: pain) Triad Wound Dressing Paste 1 applic TOPICAL BID Ativan 0.5 mg Tablet 0.5 mg PO TID nystatin 100,000 unit/gram Cream 1 applic TOPICAL BID Fleet Enema 19-7 gram/118 mL Enema 118 ml MA DAILY PRN (Reason: Constipation) Dulcolax (bisacodyl) 5 mg Tablet,Delayed Release (Dr/Ec) 5 mg PO DAILY PRN (Reason: Constipation) nystatin 100,000 unit/gram Powder 1 applic TOPICAL BID spironolactone 50 mg Tablet 50 mg PO DAILY Lexapro 10 mg Tablet 10 mg PO DAILY Clear Eyes Natural Tears 0.5-0.6 % Drops 1 drp OPHTHALMIC (EYE) TID PRN (Reason: Dry Eye(S)) Aspercreme (lidocaine HCl) 4 % Cream 1 applic TOPICAL BID PRN (Reason: Rash) Discharge Orders: Discharge ED (Routine); Ordered 03/27/22 Ordered By: David Goff Referrals: Blas Jimenez MD [Primary Care Provider] - Discharge Diet: Usual diet Discharge Activity: Resume usual activity Patient Instructions: Opioid Safety, Pain Management Activity Restrictions/Additional Instructions: You were seen today for left flank pain. You do have a mild bladder infection for which you are given antibiotics. An incidental finding during the course of the work-up is that there is a large right sided renal stone. It is causing some swelling your kidneys but not as it does not appear to be causing any other issues. We have talked to your attending physician and to the urologist. At this point there is nothing that needs to be done unless it begins to cause you pain or you would like to have it further evaluated. Since she told us you did not want any further evaluation while you are in the emergency room we did not make a follow-up appointment with a urologist for you. If you change your mind Dr. Wiggins can make arrangements. Coding Level of Care Code ED [employer] for [facility] Fwd Exam Detailed
[2022-03-27 11:10] LABS: Basophils % 0.4 %; Eosinophils % 0.2 %; Hemoglobin 15.5 g/dL (11.7-16.6); Lymphocytes # 0.5 10^3/uL (0.8-4.8); Lymphocytes % 4.8 %; Mean Corpuscular HGB Conc 32.3 g/dL (30.0-36.0); Mean Corpuscular Hemoglobin 31.2 pg (28.0-34.0); Mean Corpuscular Volume 96.6 fl (80-94); Mean Platelet Volume 9.3 fL (7.4-10.4); Monocytes # 0.5 10^3/uL (0.2-0.9); Monocytes % 4.6 %; Neutrophils # 9.21 10^3/uL (1.8-7.7); Neutrophils % 89.5 %; Nucleated Red Blood Cells % 0 %; Platelet Count 163 10^3/cmm (130-400); Red Blood Count 4.97 10^6/uL (4.1-5.3); Red Cell Distribution Width 13.4 % (12.1-15.1); White Blood Count 10.3 10^3/uL (4.0-10.0)
[2022-03-27] MEDS: ondansetron 2 mg/ML SDV 2 mL 4 MG IVP (11:15)
[2022-03-27 11:16] VITALS: BP 134/73; PULSE 77; O2SAT 94
[2022-03-27 11:26] LABS: Alanine Aminotransferase 11 U/L (0-41); Albumin Level 3.6 g/dL (3.5-5.2); Alkaline Phosphatase 95 U/L (40-130); Anion Gap 10.7 (5-19); Aspartate Amino Transferase 15 U/L (0-40); Blood Urea Nitrogen 24 mg/dL (8-23); Calcium 8.8 mg/dL (8.5-10.5); Carbon Dioxide 30 mmol/L (22-29); Chloride 98 mmol/L (98-107); Globulin 2.8 g/dL (1.3-4.6); Glucose 131 mg/dL (65-115); Lipase 8 U/L (13-60); Osmolality Calculated 284 mOsm/kg (285-295); Potassium 4.7 mmol/L (3.5-5.1); Sodium 134 mmol/L (136-145); Total Bilirubin 0.4 mg/dL (0.15-1.2); Total Protein 6.4 g/dL (6.6-8.7)
[2022-03-27 11:30] VITALS: BP 165/86; PULSE 76; O2SAT 97
[2022-03-27 12:03] LABS: Specific Gravity, Urine 1.005 (1.005-1.030); Urine Appearance Cloudy (CLEAR); Urine Color Yellow (Yellow); pH Urine 7 (5-7)
[2022-03-27 12:04] LABS: Add Urine Microscopic? YES; Bilirubin Urine Neg (Negative); Blood Urine 3+ (Negative); Glucose Urine UA Norm (Normal); Ketones Urine Negative (Negative); Leukocyte Esterase Urine 2+ (Negative); Nitrate Urine Positive (Negative); Protein Urine 1+ (Negative); RBC Urine 50-80 /hpf (0-2); Squamous Epithelial Cell Urine RARE /hpf (0-5); Urobilinogen Urine Neg (Negative); WBC Urine 25-40 /hpf (0-5)
[2022-03-27 12:05] LABS: Add Urine Culture? Yes; Bacteria Urine TRACE /hpf
--- NOTE | 2022-03-27 12:11 | CT_ITS ---
WS: [id number] CT ABDOMEN PELVIS TECHNIQUE: Noncontrast CT of the abdomen and pelvis with coronal and sagittal reformatted images. CLINICAL INFORMATION: flank pain/hematuria COMPARISON: CT 2017 DLP: 1855.[address] scans at [facility] use at least one of these dose optimization techniques: automated e xposure control; mA and/or kV adjustment per patient size (includes targeted exams where dose is matc hed to clinical indication); or iterative reconstruction. FINDINGS: No hydronephrosis in the LEFT kidney. No obstructing LEFT renal or ureteral calculi. Tiny nonobstruct ing calyceal tip calculi LEFT kidney. 14 mm obstructing calculus RIGHT UPJ with mild to moderate RIGHT hydronephrosis and inflammatory stra nding. The RIGHT ureter is decompressed distally. Bladder appears normal. Prominent prostate measurin g 4.7 CM. Bibasilar atelectasis. Cholelithiasis. Normal noncontrast liver. Normal noncontrast spleen. Small eso phageal hiatal hernia. Normal sigmoid colon.Fat-containing umbilical hernia. Fatty atrophy of the pancreas. Normal caliber a bdominal aorta. Moderate spondylitic changes lumbar spine. Sclerotic changes in the femoral heads emilee aterally suspicious for avascular necrosis progressed since 2017. CT/CT kidney stone [id number] IMPRESSION: 1. No hydronephrosis in the LEFT kidney. No obstructing LEFT renal or ureteral calculi. 2. Obstructing 14 mm calculus RIGHT UPJ with mild to moderate hydronephrosis a nd surrounding inflammatory stranding. 3. Prominent prostate measuring 4.7 CCM. 4. Cholelithiasis. 5. Sclerotic changes in the femoral heads bilaterally suspicious for avascular necrosis progressed since 2017. 6. No other acute findings. Notified David Goff DO at 03/27/2022 1:00 PM.
[2022-03-27 13:22] VITALS: BP 150/77; PULSE 78; O2SAT 96
== END 2022-03-27 14:25 | disposition home or self-care (01) ==
PROVIDERS: Emergency Provider Family Medicine; PCP Internal Medicine
DX: N20.0 Calculus of kidney (principal); N39.0 Urinary tract infection, site not specified; Z87.891 Personal history of nicotine dependence; I11.0 Hypertensive heart disease with heart failure; I50.30 Unspecified diastolic (congestive) heart failure; Z87.440 Personal history of urinary (tract) infections
CPT/HCPCS: 36415; 74176; 80053; 81001; 83690; 85025; 87077; 87086; 87186; 96374; 99285; J2405

== ENCOUNTER 2022-11-11 14:16 | Emergency (ER) | payer MEDICARE, OTHER, SELFPAY ==
[2022-11-11 14:17] VITALS: BP 117/87; PULSE 121; RESP 20; O2SAT 94
--- NOTE | 2022-11-11 14:32 | ED_ITS ---
HPI - Altered Mental Status General: Chief Complaint: Altered Mental Status Stated Complaint: AMS Time Seen by Provider: 11/11/22 14:17 Source: EMS Mode of arrival: EMS Limitations: altered mental status History of Present Illness: 87-year-old male who is here from skilled nursing. He has a history of CVAs CHF he is currently on hospice. Per EMS patient had became more altered today with more shortness of breath he is on 2 L here which is supposed his baseline he is 95% on his 2 L he will wake but he is quite confused not sure what his baseline actually is as he does have dementia and history of strokes. 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) Fluid retention in legs History of pulmonary embolism Hypertension Hypogonadism Quadriceps tendon rupture Recent cerebrovascular accident Urinary tract infection Warfarin-induced coagulopathy Surgical History History of arthroplasty of right knee S/P tonsillectomy DELETE S/P tonsillectomy and adenoidectomy Family History Father Cancer Lung cancer Social History Smoking and tobacco status: former smoker Alcohol intake: current Alcohol intake frequency: few times a month Substance/Drug Use: never Physical Exam Const: COMMON NORMALS: apparent distress and negative for patient oriented x3 HENMT: COMMON NORMALS: normocephalic and atraumatic; hearing grossly not normal bilaterally HEAD & SCALP: normocephalic and atraumatic Eye: COMMON NORMALS: conjunctivae normal CONJUNCTIVA: Yes conjunctivae normal Neck/C-Spine: COMMON NORMALS: supple Chest: COMMONS NORMALS: normal inspection of the chest Resp: COMMON NORMALS: No use of accessory muscles AUSCULTATION: crackles Cardio: COMMON NORMALS: regular rate and regular rhythm RATE: regular rate RHYTHM: regular rhythm GI: COMMON NORMALS: Normal to inspection, nondistended, normoactive bowel sounds present Extremity: COMMON NORMALS: full ROM Neuro: COMMON NORMALS: negative for patient oriented x3 Psych: COMMON NORMALS: negative for mental status grossly normal Skin: COMMON NORMALS: no rashes or lesions noted GENERAL SKIN EXAM: no rashes or lesions noted Course Vital Signs: Vital signs: Vital Signs Pulse Rate 121 H 11/11/22 14:17 Respiratory Rate 20 H 11/11/22 14:17 Blood Pressure 117/87 11/11/22 14:17 Pulse Oximetry 94 11/11/22 14:17 Oxygen Delivery Me thod Nasal Cannula 11/11/22 14:17 Oxygen Flow Rate 2 11/11/22 14:17 MDM - Altered Mental Status Medical Decision Making Patient presents here with altered mental status he is on hospice I spoke to his daughter who is power of personal injury attorney who does not want any work-up or testing and will discharge back to skilled nursing at this time Discharge Plan Discharge Patient Disposition: Home Clinical Impression: Altered mental status Condition: Stable Prescriptions: No Action bisacodyl [Dulcolax (bisacodyl)] 10 mg suppository 10 mg OK DAILY PRN (Reason: Constipation) magnesium hydroxide [Milk of Magnesia] 400 mg/5 mL suspension 5 ml PO DAILY PRN (Reason: Constipation) naloxone 0.4 mg/mL solution 0.4 mg IM Q3M PRN (Reason: Opioid Overdose) Rx Instructions: NTExceed 10 mg total dose/episode fentanyl 50 mcg/hr patch 72 hour 1 patch transdermal Q72H 30 Days Qty: 10 0RF diclofenac sodium 1 % gel See Rx Instructions topical QID Qty: 100 8RF Rx Instructions: AAA topical four times daily PRN hydrocodone-acetaminophen 10-325 mg tablet 1 tab PO Q6H PRN (Reason: pain) [employer] Wound Dressing Paste 1 applic TOPICAL BID Ativan 0.5 mg Tablet 0.5 mg PO TID nystatin 100,000 unit/gram Cream 1 applic TOPICAL BID Fleet Enema 19-7 gram/118 mL Enema 118 ml OK DAILY PRN (Reason: Constipation) Dulcolax (bisacodyl) 5 mg Tablet,Delayed Release (Dr/Ec) 5 mg PO DAILY PRN (Reason: Constipation) nystatin 100,000 unit/gram Powder 1 applic TOPICAL BID spironolactone 50 mg Tablet 50 mg PO DAILY Lexapro 10 mg Tablet 10 mg PO DAILY Clear Eyes Natural Tears 0.5-0.6 % Drops 1 drp OPHTHALMIC (EYE) TID PRN (Reason: Dry Eye(S)) Aspercreme (lidocaine HCl) 4 % Cream 1 applic TOPICAL BID PRN (Reason: Rash) Cipro 500 mg tablet 500 mg PO BID Qty: 14 0RF Discharge Orders: Discharge ED (Routine); Ordered 11/11/22 Ordered By: Sofia Lara Referrals: Blas Jimenez MD [Primary Care Provider] - Discharge Diet: Advance as tolerated Discharge Activity: Resume usual activity Patient Instructions: Altered Mental Status (ED) Coding Level of Care Code ED Director Of Development And Marketing for Mary Jane Martino
[2022-11-11] MEDS: HYDROcodone-acetaminophen 5-325 mg Tablet 1 TAB PO (15:05)
[2022-11-11] MEDS: LORazepam 1 mg Tablet PO (15:05)
== END 2022-11-11 15:16 | disposition home or self-care (01) ==
PROVIDERS: Emergency Provider Emergency Medicine; PCP Internal Medicine
DX: R41.82 Altered mental status, unspecified (principal); Z87.891 Personal history of nicotine dependence; I11.0 Hypertensive heart disease with heart failure; I50.9 Heart failure, unspecified
CPT/HCPCS: 99283